=== PATIENT | female | born 2000 | race Caucasian/White ===

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

== ENCOUNTER 2021-04-11 23:05 | Emergency (ER) | payer BC ==
[~2021-04-11] VITALS: Ht 162.5 cm; Wt 73.0 kg
--- OUTSIDE RECORDS SUMMARY | 2021-04-11 23:13 | XMS REPORT | CCD ---
Author Author Melinda Balderas D.O. 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 Name Role Phone PP Unavailable CCM Unavailable Summary Purpose Interface Exchange Insurance Providers Payer name Policy type / Coverage type Covered green party ID Effective Begin Date Effective End Date Blue Cross Blue Shield Blue Cross/Blue Shield [id number] 2019 Unknown Family History Family History data not found Social History Social History Element Codes Description Effective Dates Marital status Unknown Single 11/29/2019 Employment Unknown [facility] 11/29/[address]: 358534071 Has never smoked or chewed tobacco 11/29/[address]: 674390 Currently drinks alcohol 11/28 Has the patient ever used illegal drugs? Unknown Has nev er used illegal drugs 11/29/2019 Allergies, Adverse Reactions, Alerts Substance Reaction Codes Entered Date Inactivated Date Status * NO KNOWN ENVIRONMENTAL ALLERGIES Unknown 11/29/2019 N o Inactive Date Active * NO KNOWN FOOD ALLERGIES Unknown 11/29/2019 No Inactiv e Date Active MACROLIDE ANTIBIOTICS reaction Unknown 11/29/2019 No Inactive Da te Active Problems Condition Codes Effective Dates Condition Status Cephalgia ICD-10: R51.9 ICD-9: 784.0 04/27/2020 Active Right ear pain ICD-10: H92.01 ICD-9: 388.70 02/11/2021 Active Vaccine counseling ICD-10: Z71.89 ICD-9: V65.49 11/20/2020 Active Depression ICD-10: F32.9 ICD-9: 311 11/29/2019 Active Generalized anxiety disorder ICD-10: F41.1 ICD-9: 300.02 07/02/2020 Active School physical exam ICD-10: Z02.0 ICD-9: V70.5 10/30/2020 Active Left foot pain ICD-10: M79.672 ICD-9: 729.5 09/03/2020 Active Migraine aura, persistent, intractable, with status mi grainosus ICD-10: G43.511 ICD-9: 346.53 07/02/2020 Active Sinusitis ICD-10: J32.9 ICD-9: 473.9 05/25/2020 Active Nausea ICD-10: R11.0 ICD-9: 787.02 05/01/2020 Active Right sided numbness ICD-10: R20.0 ICD-9: 782.0 05/01/2020 Active Right sided weakness ICD-10: R53.1 ICD-9: 728.87 05/01/2020 Active Endometriosis ICD-10: N80.9 ICD-9: 617.9 11/29/2019 Active Fatigue ICD-10: R53.83 ICD-9: 780.79 11/29/2019 Active PCOS (polycystic ovarian syndrome) ICD-10: E28.2 ICD-9: 256.4 11/29/2019 Active Medications Medication Codes Instructions Start Date Stop Date Status Fill Instructions oxybutynin chloride ER 10 mg tablet,extended release 24 hr R xNorm: 818504 1 Tablet(s) Oral QD 01/23/2021 02/21/2021 Active oxybutynin chloride ER 10 mg tablet,extended release 24 hr R xNorm: 012096 1 Tablet(s) Oral QD 01/23/2021 01/23/2021 Inactive citalopram 40 mg tablet RxNorm: 286237 1 Tablet(s) Oral QD repl aces 20mg dose 12/03/2020 03/02/2021 Active citalopram 40 mg tablet RxNorm: 302703 1 Tablet(s) Oral QD repl aces 20mg dose 12/03/2020 12/03/2020 Inactive Topamax 50 mg tablet RxNorm: 396582 1 Tablet(s) Oral two times a da y 10/30/2020 No Stop Date Active buspirone 10 mg tablet RxNorm: 012122 Take 1 Tablet(s) Oral two times a day as needed for anxiety 10/30/2020 01/27/2021 Inactive citalopram 20 mg tablet RxNorm: 294775 1 Tablet(s) Oral QD 09/11/1912/02/2020 Inactive propranolol 40 mg tablet RxNorm: 880209 1 Tablet(s) Oral two ti mes a day 07/16/2020 07/15/2020 Inactive propranolol 40 mg tablet RxNorm: 538230 1 Tablet(s) Oral two ti mes a day 07/16/2020 10/29/2020 Inactive Nurtec ODT 75 mg disintegrating tablet RxNorm: 7126416 1 Tablet(s) Sublingual QD as needed for headache take as directed but no more than 9 in a month. 07/02/2020 No Stop Date Active oxybutynin chloride 5 mg tablet RxNorm: 007702 1 Tablet(s) Oral QD 07/02/2020 01/22/2021 Inactive propranolol 40 mg tablet RxNorm: 294492 1 Tablet(s) Oral every night at bedtime 07/02/2020 07/15/2020 Inactive ProAir HFA 90 mcg/actuation aerosol inhaler RxNorm: 377639 2 Puff(s) Inhalation Q4H as needed 05/28/2020 05/27/2020 Inactive Medrol (Manuel) 4 mg tablets in a dose pack RxNorm: 319028 Tablet(s) Oral Take as prescribed 05/28/2020 05/27/2020 Inactive Zofran 4 mg tablet RxNorm: 810241 1 Tablet(s) Oral Q4H as neede d for nausea 05/28/2020 05/27/2020 Inactive Zofran 4 mg tablet RxNorm: 795243 1 Tablet(s) Oral Q4H as neede d for nausea 05/28/2020 05/28/2020 Inactive Medrol (Manuel) 4 mg tablets in a dose pack RxNorm: 375957 Tablet(s) Oral Take as prescribed 05/28/2020 05/28/2020 Inactive ProAir HFA 90 mcg/actuation aerosol inhaler RxNorm: 368043 2 Puff(s) Inhalation Q4H as needed 05/28/2020 05/28/2020 Inactive Augmentin 875 mg-125 mg tablet RxNorm: 789367 1 Tablet(s) Oral two times a day 05/25/2020 05/27/2020 Inactive citalopram 20 mg tablet RxNorm: 460168 Take 1 tablet by mouth o nce daily 05/22/2020 08/19/2020 Inactive diclofenac ER 100 mg tablet,extended release 24 hr RxNorm: 8 17751 1 Tablet(s) Oral two times a day as needed for headache 05/02/2020 05/01/2020 Inac tive diclofenac ER 100 mg tablet,extended release 24 hr RxNorm: 8 26886 1 Tablet(s) Oral two times a day as needed for headache 05/02/2020 05/02/2020 Inac tive prednisone 20 mg tablet RxNorm: 671563 1 Tablet(s) Oral two sherif es a day 05/01/2020 05/08/2020 Inactive Valtrex 1 gram tablet RxNorm: 728511 1 Tablet(s) Oral three sherif es a day 05/01/2020 05/08/2020 Inactive Lyrica 50 mg capsule RxNorm: 872616 1 Capsule(s) Oral QPM for n erve pain 04/27/2020 04/30/2020 Inactive Lyrica 50 mg capsule RxNorm: 057684 1 Capsule(s) Oral QPM for n erve pain 04/27/2020 04/26/2020 Inactive ketorolac 10 mg tablet RxNorm: 569358 1 Tablet(s) Oral four times a day as needed for pain with food 04/27/2020 04/30/2020 Inactive citalopram 20 mg tablet RxNorm: 012346 1 Tablet(s) Oral QD 03/12/2005/21/2020 Inactive Loryna (28) 3 mg-0.02 mg tablet RxNorm: 7043014 1 Tablet (s) Oral Take as directed 03/12/2020 04/30/2020 Inactive Loryna (28) 3 mg-0.02 mg tablet RxNorm: 3155181 1 Tablet (s) Oral Take as directed 01/09/2020 03/11/2020 Inactive Loryna (28) 3 mg-0.02 mg tablet RxNorm: 4182847 1 Tablet (s) Oral Take as directed 01/09/2020 01/08/2020 Inactive citalopram 20 mg tablet RxNorm: 523620 1 Tablet(s) Oral QD 11/29/19 20 03/11/2020 Inactive drospiren-e.estrad-l.mefol 3 mg-0.02 mg-0.451 mg(24)/0 .451 mg(4)tablet RxNorm: 9090838 1 Tablet(s) Oral QD 11/29/2019 04/30/2020 Inactive Medication Administered No Medication Administered data Immunizations No Immunization data Results No Results data Procedures Procedure Codes Date THER/PROPH/DIAG INJ SC/IM CPT-4: 16619 05/01/2020 KETOROLAC TROMETHAMINE INJ CPT-4: J1885 05/01/2020 THER/PROPH/DIAG INJ SC/IM CPT-4: 80179 05/01/2020 METHYLPREDNISOLONE INJECTION CPT-4: J2930 05/01/2020 ONDANSETRON HCL INJECTION CPT-4: J2405 05/01/2020 Vital Signs Date Vital 02/11/2021 Heart Rate 1: 84 bpm Respiratory Rate: 18 bpm SpO2: 99 % Temperature: 36.6 (C) / 97.8 (F) 11/20/2020 Blood Pressure 1: 117/68 Code: 8480-6 Heart Rate 1: 68 bpm Respiratory Rate: 16 bpm SpO2: 99% Temperature: 36.6 (C) / 97.8 (F) We ight: 161 lbs Code: 08993-1 10/30/2020 Blood Pressure 1: 124/74 Code: 8480-6 BMI: 27.6 Code: 79965-4 Heart Rate 1: 92 bpm Height: 5'4" Code: 8302-2 Respiratory Rate: 16 bpm SpO2: 99% Temperature: 36.4 (C) / 97.5 (F) Weight: 161 lbs Code: 59882-8 09/03/2020 Blood Pressure 1: 124/64 Code: 8480-6 BMI: 28.2 Code: 74109-8 Heart Rate 1: 92 bpm Height: 5'4" Code: 8302-2 Respiratory Rate: 22 bpm SpO2: 96% Temperature: 36.7 (C) / 98.0 (F) Weight: 164 lbs Code: 33887-9 07/24/2020 Blood Pressure 1: 132/76 Code: 8480-6 BMI: 28.7 Code: 76244-9 Heart Rate 1: 90 bpm Height: 5'4" Code: 8302-2 Respiratory Rate: 16 bpm SpO2: 99% Temperature: 36.5 (C) / 97.7 (F) Weight: 167 lbs Code: 99077-3 07/02/2020 Blood Pressure 1: 127/76 Code: 8480-6 Heart Rate 1: 98 bpm Respiratory Rate: 15 bpm SpO2: 98% Temperature: 36.3 (C) / 97.3 (F) We ight: 167 lbs Code: 78253-5 05/25/2020 Blood Pressure 1: 118/76 Code: 8480-6 BMI: 29.2 Code: 97233-0 Heart Rate 1: 92 bpm Height: 5'4" Code: 8302-2 Respiratory Rate: 20 bpm SpO2: 96% Temperature: 36.2 (C) / 97.1 (F) Weight: 170 lbs Code: 10315-8 05/01/2020 Blood Pressure 1: 114/86 Code: 8480-6 Heart Rate 1: 104 bpm Respiratory Rate: 22 bpm SpO2: 99% Temperature: 36.9 (C) / 98.4 (F) 04/27/2020 Blood Pressure 1: 119/64 Code: 8480-6 Heart Rate 1: 95 bpm Respiratory Rate: 16 bpm SpO2: 98% Temperature: 36.4 (C) / 97.5 (F) We ight: 165 lbs Code: 39006-3 11/29/2019 Blood Pressure 1: 104/76 Code: 8480-6 BMI: 26.8 Code: 61650-7 Heart Rate 1: 80 bpm Height: 5'4" Code: 8302-2 Respiratory Rate: 20 bpm SpO2: 98% Temperature: 36.4 (C) / 97.5 (F) Weight: 156 lbs Code: 52309-4 Functional Status No Functional Status data Reason For Visit Reason For Visit Effective Dates Notes otalgia 02/11/2021 ~generic 11/20/2020 Patient is here to d renetta Covid19 Vaccination and possible side effects. 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 foot pain 09/03/2020 Patient presents to clinic with left-foot pain that has been ongoing for 2 weeks. Patient states pain is described as throbbing with pressure, radiating with shooting pain up lateral side of leg to knee. Patient states pain is moderately severe (6 out of 10 on pain scale). Patient has been taking ibuprophen q6h, ice, compression and rest with little relief. Patient also reports slight swelling to last two digits intermittently on same foot. follow up 07/24/2020 Patient has been naida ing propranolol 40mg QD. Patient was prescribed to take 40mg BID but states that she did not read the bottle instructions. Patient has c/o of fatigue, dizziness, imbalance, disturbed emotions since starting propranolol, but states it has helped her anxiety and headaches some. Appt with neurology scheduled on Thursday. headache 07/02/2020 otalgia 05/25/2020 patient currently on mucinex follow up 05/01/2020 ER fwup headache 04/27/2020 ~generic 11/29/2019 New Patient---establ ishing visit Encounters Encounter Performer Location Codes Date ([id number]) OFFICE/OUTPATIENT VISIT EST Diagnosis: Cephalgia[ICD10: R51.9] Diagnosis: Right ear pain[ICD10: H92.01] Perla WALKER [employer] CPT-4: 59092 02/11/2021 ([id number]) OFFICE/OUTPATIENT VISIT EST Diagnosis: Vaccine counseling[ICD10: Z71.89] Perla Berkowitz [employer] CPT-4: 88116 11/20/2020 ([id number]) OFFICE/OUTPATIENT VISIT EST Diagnosis: Generalized anxiety disorder[ICD10: F41.1] Diagnosis: Depression[ICD10: F32.9] Diagnosis: School physical exam[ICD10: Z02.0] Perla HEAD [employer] CPT-4: 13872 10/30/2020 ([id number]) OFFICE/OUTPATIENT VISIT EST Diagnosis: Left foot pain[ICD10: M79.672] Perla WALKER [employer] CPT-4: 93395 09/03/2020 ([id number]) OFFICE/OUTPATIENT VISIT EST Diagnosis: Cephalgia[ICD10: R51.9] Diagnosis: Generalized anxiety disorder[ICD10: F41.1] Perla WALKER [employer] CPT-4: 53671 07/24/2020 ([id number]) OFFICE/OUTPATIENT VISIT EST Diagnosis: Migraine aura, persistent, intractable, with status migrainosus[ICD10: G43.511] Diagnosis: Generalized anxiety disorder[ICD10: F41.1] Anusha BALDERAS DO [employer] CPT-4: 66076 07/02/2020 ([id number]) OFFICE/OUTPATIENT VISIT EST Diagnosis: Sinusitis[ICD10: J32.9] Anusha DEL CASTILLO DO [facility] CPT-4: 81307 05/25/2020 ([id number]) OFFICE/OUTPATIENT VISIT EST Diagnosis: Cephalgia[ICD10: R51.9] Diagnosis: Right sided numbness[ICD10: R20.0] Diagnosis: Nausea[ICD10: R11.0] Diagnosis: Right sided weakness[ICD10: R53.1] Aaron LUJAN SONIDO BALDERAS [employer] CPT-4: 50802 05/01/2020 ([id number]) OFFICE/OUTPATIENT VISIT EST Diagnosis: Cephalgia[ICD10: R51.9] Anusha DEL CASTILLO [employer] CPT-4: 91945 04/27/2020 ([id number]) OFFICE/OUTPATIENT VISIT NEW Diagnosis: Endometriosis[ICD10: N80.9] Diagnosis: PCOS (polycystic ovarian syndrome)[ICD10: E28.2] Diagnosis: Depression[ICD10: F32.9] Diagnosis: Fatigue[ICD10: R53.83] Aaron WALKER [employer] SHIRA Ojeda [employer] CPT-4: 64223 11/29/2019 Plan of Care Planned Activity Notes Codes Status Date Visit Diagnosis Plan: Cephalgia Discussion: Taking top irimate and nurtec PRN. Does not take ibuprofen /NSAIDs because she was told not to in the past- advised she can now d/t normal neuro imaging and stroke being ruled out. Patient taking JAQUELIN pills-advised against taking d/t vascular migraines- discussed risks. Dr. Balderas and myself have both instructed her to discontinue in the past. 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 Patient states she will call and check with her neurologist. ICD-9 : 784.0 ICD-10 : R51.9 02/11/2021 Visit Diagnosis Plan: Right ear pain Discussion: TM an d external ear canal normal- no s/s of infection, lesions, edema, drainage. External ear became very erythematous and painful with burning sensation radiating to cheek and mandible after otoscopic exam. Erythema and warmth extended to adjacent portions of ipsilateral cheek. Discussed possibility of Red Ear Syndrome due to clinical presentation and migraines- can use cold compress to ear/face, migraine preventative measures, can send indomethacin if needed. Patient will discuss symptoms with her neurologist. F/U for concerns. ICD-9 : 388.70 ICD-10 : H92.01 02/11/2021 Appointment: Perla Bowers WPtel: [phone] ACUTE ILLNESS 02/11/2021 Patient Education: Patient Medication Summary Completed 02/11/2021 Visit Diagnosis Plan: Vaccine counseling Discussion: D iscussed contraindications, side effects, patient concerns on COVID vaccine- patient does not have any contraindications. Recommended COVID vaccine. Questions answered. Patient and mother voiced understanding. Print-outs given from [facility] website on MRNA vaccines and covid vaccine safety and side effects. ICD-9 : V65.49 ICD-10 : Z71.89 11/20/2020 Appointment: Perla Bowers WPtel: [phone] ACUTE ILLNESS 11/20/2020 Patient Education: Patient Medication Summary Completed 11/20/2020 Visit Diagnosis Plan: Generalized anxiety disorder Dis cussion: Continue citalopram. Add buspar. F/U for any concerns- no improvement/worsening. 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 ICD-9 : V70.5 ICD-10 : Z02.0 10/30/2020 Appointment: Perla Bowers WPtel: [phone] [id number] FOLLOW UP 10/30/2020 Patient Education: Patient Medication Summary Completed 10/30/2020 Patient Education: buspirone- [employer] Coupon [id number] [email or web address] Completed 10/30/2020 Visit Diagnosis Plan: Left foot pain Discussion: 1.)Re commend Xray to left foot to rule out break/fracture to affected extremity. 2.)RICE (Rest, Ice, Compression, Elevate) 3.)Recommend ibuprofen 600mg Q6-8H prn for pain, arch supporting shoes with inserts and limit work/activities for the next week until xray results received and pain has improved. 4.)RTC for worsening pain or further concerns. ICD-9 : 729.5 ICD-10 : M79.672 09/03/2020 Appointment: Perla Bowers WPtel: [phone] [facility] ACUTE ILLNESS 09/03/2020 Patient Education: Patient Medication Summary Completed 09/03/2020 Care Plan: X-RAY EXAM OF FOOT LOINC : 26 095-0 Pending 09/03/2020 Appointment: Aaron Balderas WPtel: [phone] [facility] RESCHEDULED 07/30/2020 Visit Diagnosis Plan: Cephalgia Recommendations: Gisell bailey will take Propanolol 20 mg in am and 20 mg in HS instead of 40 mg daily to help reduce symptoms of dizziness. She is scheduled to see Dr. Iqbal, neurologist on Thursday. Advised nolvia hinojosa not to take COCs with migraine with aura. She is unsure if she has an aura or not, aura explained. [facility] been [facility] for [facility]. Will f/u after appt with neurology. ICD-9 : 784.0 ICD-10 : R51.9 07/24/2020 Appointment: Perla Bowers WPtel: [phone] [facility] FOLLOW UP 07/24/2020 Patient Education: Patient Medication Summary Completed 07/24/2020 Appointment: Anusha Chapin [address] [place], [place] [id number] RESCHEDULED 07/16/2020 Visit Diagnosis Plan: Migraine aura, per sistent, intractable, with status migrainosus Discussion: has stopped her contro l with no relief of symptoms. patient has had cta and mri, steroid injections, valtrex, toradol all with no relief. patient is having daily, constant headaches with no relief from otc medications. propranolol prescribed to take as directed each night to prevent headaches. sample of nurtec given to patient with instructions on use. call office if symptoms improve and will send out full rx. call dr. vizcarra to reschedule appt. continue with chiropractor as needed but schedule massage as well to see if helps with tension related. call office in 2 weeks with update and may increase propranolol at that time. ICD-9 : 346.53 ICD-10 : G43.511 07/02/2020 Visit Diagnosis Plan: Generalized anxiety disorder Dis cussion: propranolol to take to help with migraines and anxiety. ICD-9 : 300.02 ICD-10 : F41.1 07/02/2020 Appointment: Anusha Chapin [address] [place] [address] ACUTE ILLNESS 07/02/2020 Patient Education: propranolol- [employer] Coupon [id number] [email or web address]/resources/getResource/[email or web address] Completed 07/02/2020 Visit Diagnosis Plan: Sinusitis Discussion: stop the m ucinex but continue with otc allergy meds. augmentin to cover for bacterial sinus infection but instructed patient to get tested for COVID. instructed her to contact [facility] for testing. patient verbalized understanding. ICD-9 : 473.9 ICD-10 : J32.9 05/25/2020 Appointment: Anusha Chapin [address] [place], [place] [id number] ACUTE ILLNESS 05/25/2020 Visit Diagnosis Plan: Right sided numbness Discussion: Referral to neurology Solumedrol today and then continue with prednisone Call tomorrow on how doing ICD-9 : 782.0 ICD-10 : R20.0 05/01/2020 Visit Diagnosis Plan: Nausea Discussion: Zofran given ICD-9 : 787.02 ICD-10 : R11.0 05/01/2020 Visit Diagnosis Plan: Right sided weakness Discussion: Normal CT of brain and MRI of brain as well as normal lab ICD-9 : 728.87 ICD-10 : R53.1 05/01/2020 Visit Diagnosis Plan: Cephalgia Discussion: Could be n eurological migraine so will do toradol with zofran now DC oral contraceptive Optometry exam for dilated exam tomorrow Resume Valtrex due to recent shingles to left side of neck ICD-9 : 784.0 ICD-10 : R51.9 05/01/2020 Appointment: Aaron Balderas WPtel: [phone] [facility] [place] [address] Follow Up 05/01/2020 Patient Education: prednisone- [employer] Coupon [phone] [email or web address]/resources/getResource/61/[email or web address] Completed 05/01/2020 Patient Education: Valtrex- [employer] Coupon [id number] https://www.[email or web address]/resources/getResource/61/[email or web address] Completed 05/01/2020 Care Plan: Referral Order SNOMED-CT : [id number] Pending 05/01/2020 Visit Diagnosis Plan: Cephalgia Discussion: Patient se nt for stat CTA of brain--I notified her that results were normal and sent out lyrica 50mg po q PM and ketorolac 10mg po QID prn for the weekend She will call us Thursday to let us know how she is doing but is instructed to go to the ER this weekend if worsening symptoms including fever, AMS, etc. ICD-9 : 784.0 ICD-10 : R51.9 04/27/2020 Appointment: Anusha Chapin [address] [place], [place] [id number] ACUTE ILLNESS 04/27/2020 Patient Education: ketorolac- [employer] Coupon [phone] [email or web address]/resources/getResource/[email or web address] Completed 04/27/2020 Visit Diagnosis Plan: Depression Discussion: Stable on citalopram Follow Up: 6 months ICD-9 : 311 ICD-10 : F32.9 11/29/2019 Visit Diagnosis Plan: Fatigue Discussion: Check CBC, T SH, Free T4, CMP, iron/ferritin, insulin levels ICD-9 : 780.79 ICD-10 : R53.83 11/29/2019 Visit Diagnosis Plan: Endometriosis Discussion: Follow s with OLIVE PICKER ICD-9 : 617.9 ICD-10 : N80.9 11/29/2019 Appointment: Aaron Balderas WPtel: [facility] NEW PATIENT 11/29/2019 Referral: Jerman Vizcarra WPtel: [facility] [address] [place] [address] Referral Appointment Requested Instructions No Instructions Medical Equipment No Medical Equipment data Health Concerns Section Health Concerns data not found Goals Section Goals data not found Interventions Section Interventions data not found Health Status Evaluations/Outcomes Section Health Status Evaluations/Outcomes data not found Advance Directives No Advance Directive data
--- OUTSIDE RECORDS SUMMARY | 2021-04-11 23:13 | XMS REPORT | CCD ---
Author Author Melinda Balderas D.O. 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 11/29/[address]: 718567059 Has never smoked or chewed tobacco 11/29/[address]: 151600 Currently drinks alcohol 11/28 Has the patient [...] Problems Condition Codes Effective Dates Condition Status Acute cystitis with hematuria ICD-10: N30.01 ICD-9: 595.0 03/06/2021 Active Nasal congestion ICD-10: R09.81 ICD-9: 478.19 03/06/2021 Active Cephalgia ICD-10: R51.9 ICD-9: 784.0 04/27/2020 Active [...] Start Date Stop Date Status Fill Instructions Macrobid 100 mg capsule RxNorm: 655326 Take 1 Capsule(s) Oral Q 12H with food 03/06/2021 03/10/2021 Active Topamax 100 mg tablet RxNorm: 732916 1 Tablet(s) Oral two times a day 03/06/2021 04/04/2021 Active Pyridium 200 mg tablet RxNorm: 8940586 Take 1 Tablet(s) Oral three times a day after mealsas needed 03/06/2021 03/07/2021 Active citalopram 40 mg tablet RxNorm: 761559 1 Tablet(s) Oral QD repl aces 20mg dose 03/01/2021 05/29/2021 Active Topamax 50 mg tablet RxNorm: 488646 1 Tablet(s) Oral two times a da y 03/01/2021 03/01/2021 Inactive oxybutynin chloride ER 10 mg tablet,extended release 24 hr R xNorm: 728197 Take 1 Tablet(s) Oral QD 02/20/2021 05/20/2021 Active norethindrone (contraceptive) 0.35 mg tablet RxNorm: 364117 1 T ablet(s) Oral QD 02/14/2021 01/15/2022 Active oxybutynin chloride ER 10 mg tablet,extended release 24 hr R xNorm: 669256 1 Tablet(s) Oral QD 01/23/2021 01/23/2021 Inactive oxybutynin chloride ER 10 mg tablet,extended release 24 hr R xNorm: 518956 1 Tablet(s) Oral QD 01/23/2021 01/23/2021 Inactive citalopram 40 mg tablet RxNorm: 905159 1 Tablet(s) Oral QD repl aces 20mg dose 12/03/2020 12/03/2020 Inactive citalopram 40 mg tablet RxNorm: 710065 1 Tablet(s) Oral QD repl aces 20mg dose 12/03/2020 12/03/2020 Inactive Topamax 50 mg tablet RxNorm: 305645 1 Tablet(s) Oral two times a da y 10/30/2020 03/01/2021 Inactive buspirone 10 mg tablet RxNorm: 458679 Take 1 Tablet(s) Oral two times a day as needed for anxiety 10/30/2020 01/27/2021 Inactive citalopram 20 mg tablet RxNorm: 268814 1 Tablet(s) Oral QD 09/11/1912/02/2020 Inactive propranolol 40 mg tablet RxNorm: 529758 1 Tablet(s) Oral two ti mes a day 07/16/2020 07/15/2020 Inactive propranolol 40 mg tablet RxNorm: 077531 1 Tablet(s) Oral two ti mes a day 07/16/2020 10/29/2020 Inactive oxybutynin chloride 5 mg tablet RxNorm: 818189 1 Tablet(s) Oral QD 07/02/2020 01/22/2021 Inactive Nurtec ODT 75 mg disintegrating tablet RxNorm: 4624491 1 Tablet(s) Sublingual QD as needed for headache take as directed but no more than 9 in a month. 07/02/2020 03/05/2021 Inactive propranolol 40 mg tablet RxNorm: 520900 1 Tablet(s) Oral every night at bedtime 07/02/2020 07/15/2020 Inactive ProAir HFA 90 mcg/actuation aerosol inhaler RxNorm: 522018 2 Puff(s) Inhalation Q4H as needed 05/28/2020 05/27/2020 Inactive Medrol (Manuel) 4 mg tablets in a dose pack RxNorm: 786881 Tablet(s) Oral Take as prescribed 05/28/2020 05/27/2020 Inactive Zofran 4 mg tablet RxNorm: 288257 1 Tablet(s) Oral Q4H as neede d for nausea 05/28/2020 05/27/2020 Inactive Zofran 4 mg tablet RxNorm: 075668 1 Tablet(s) Oral Q4H as neede d for nausea 05/28/2020 05/28/2020 Inactive Medrol (Manuel) 4 mg tablets in a dose pack RxNorm: 848170 Tablet(s) Oral Take as prescribed 05/28/2020 05/28/2020 Inactive ProAir HFA 90 mcg/actuation aerosol inhaler RxNorm: 388829 2 Puff(s) Inhalation Q4H as needed 05/28/2020 05/28/2020 Inactive Augmentin 875 mg-125 mg tablet RxNorm: 070478 1 Tablet(s) Oral two times a day 05/25/2020 05/27/2020 Inactive citalopram 20 mg tablet RxNorm: 147253 Take 1 tablet by mouth o nce daily 05/22/2020 08/19/2020 Inactive diclofenac ER 100 mg tablet,extended release 24 hr RxNorm: 8 16516 1 Tablet(s) Oral two times a day as needed for headache 05/02/2020 05/01/2020 Inac tive diclofenac ER 100 mg tablet,extended release 24 hr RxNorm: 8 49292 1 Tablet(s) Oral two times a day as needed for headache 05/02/2020 05/02/2020 Inac tive prednisone 20 mg tablet RxNorm: 674127 1 Tablet(s) Oral two sherif es a day 05/01/2020 05/08/2020 Inactive Valtrex 1 gram tablet RxNorm: 673210 1 Tablet(s) Oral three sherif es a day 05/01/2020 05/08/2020 Inactive Lyrica 50 mg capsule RxNorm: 848618 1 Capsule(s) Oral QPM for n erve pain 04/27/2020 04/30/2020 Inactive Lyrica 50 mg capsule RxNorm: 923415 1 Capsule(s) Oral QPM for n erve pain 04/27/2020 04/26/2020 Inactive ketorolac 10 mg tablet RxNorm: 230695 1 Tablet(s) Oral four times a day as needed for pain with food 04/27/2020 04/30/2020 Inactive citalopram 20 mg tablet RxNorm: 196295 1 Tablet(s) Oral QD 03/12/20 20 05/21/2020 Inactive Loryna (28) 3 mg-0.02 mg tablet RxNorm: 5657999 1 Tablet (s) Oral Take as directed 03/12/2020 04/30/2020 Inactive Loryna (28) 3 mg-0.02 mg tablet RxNorm: 8540094 1 Tablet (s) Oral Take as directed 01/09/2020 03/11/2020 Inactive Loryna (28) 3 mg-0.02 mg tablet RxNorm: 8021563 1 Tablet (s) Oral Take as directed 01/09/2020 01/08/2020 Inactive citalopram 20 mg tablet RxNorm: 870553 1 Tablet(s) Oral QD 11/29/1903/11/2020 Inactive drospiren-e.estrad-l.mefol 3 mg-0.02 mg-0.451 mg(24)/0 .451 mg(4)tablet RxNorm: 0279501 1 Tablet(s) Oral QD 11/29/2019 04/30/2020 Inactive norethindrone (contraceptive) oral RxNorm: 7514 oral 02/14/2021 02/14/2021 Inactive Medication Administered No Medication Administered data Immunizations No Immunization data Results No Results data Procedures Procedure Codes Date URINALYSIS NONAUTO W/O SCOPE CPT-4: 16117 03/06/2021 URINE CULTURE/ COLONY COUNT CPT-4: 52481 03/06/2021 SARSCOV & INF VIR A&B AG IA CPT-4: 75120 03/06/2021 THER/PROPH/DIAG INJ SC/IM CPT-4: 18939 05/01/2020 KETOROLAC TROMETHAMINE INJ CPT-4: J1885 05/01/2020 THER/PROPH/DIAG INJ SC/IM CPT-4: 63837 05/01/2020 METHYLPREDNISOLONE INJECTION CPT-4: J2930 05/01/2020 ONDANSETRON HCL INJECTION CPT-4: J2405 05/01/2020 Vital Signs Date Vital 03/06/2021 Blood Pressure 1: 119/68 Code: 8480-6 Heart Rate 1: 97 bpm Respiratory Rate: 16 bpm SpO2: 98% Temperature: 36.4 (C) / 97.5 (F) We ight: 158 lbs Code: 05778-7 02/11/2021 Heart Rate 1: 84 bpm Respiratory Rate: 18 bpm SpO2: 99 % Temperature: 36.6 (C) / 97.8 (F) 11/20/2020 Blood Pressure 1: 117/68 Code: 8480-6 Heart Rate 1: 68 bpm Respiratory Rate: 16 bpm SpO2: 99% Temperature: 36.6 (C) / 97.8 (F) We ight: 161 lbs Code: 00503-3 10/30/2020 Blood Pressure 1: 124/74 Code: 8480-6 BMI: 27.6 Code: 54492-2 Heart Rate 1: 92 bpm Height: 5'4" Code: 8302-2 Respiratory Rate: 16 bpm SpO2: 99% Temperature: 36.4 (C) / 97.5 (F) Weight: 161 lbs Code: 32851-7 09/03/2020 Blood Pressure 1: 124/64 Code: 8480-6 BMI: 28.2 Code: 34471-1 Heart Rate 1: 92 bpm Height: 5'4" Code: 8302-2 Respiratory Rate: 22 bpm SpO2: 96% Temperature: 36.7 (C) / 98.0 (F) Weight: 164 lbs Code: 66297-5 07/24/2020 Blood Pressure 1: 132/76 Code: 8480-6 BMI: 28.7 Code: 06578-6 Heart Rate 1: 90 bpm Height: 5'4" Code: 8302-2 Respiratory Rate: 16 bpm SpO2: 99% Temperature: 36.5 (C) / 97.7 (F) Weight: 167 lbs Code: 01403-9 07/02/2020 Blood Pressure 1: 127/76 Code: 8480-6 Heart Rate 1: 98 bpm Respiratory Rate: 15 bpm SpO2: 98% Temperature: 36.3 (C) / 97.3 (F) We ight: 167 lbs Code: 08933-8 05/25/2020 Blood Pressure 1: 118/76 Code: 8480-6 BMI: 29.2 Code: 50059-8 Heart Rate 1: 92 bpm Height: 5'4" Code: 8302-2 Respiratory Rate: 20 bpm SpO2: 96% Temperature: 36.2 (C) / 97.1 (F) Weight: 170 lbs Code: 22708-7 05/01/2020 Blood Pressure 1: 114/86 Code: 8480-6 Heart Rate 1: 104 bpm Respiratory Rate: 22 bpm SpO2: 99% Temperature: 36.9 (C) / 98.4 (F) 04/27/2020 Blood Pressure 1: 119/64 Code: 8480-6 Heart Rate 1: 95 bpm Respiratory Rate: 16 bpm SpO2: 98% Temperature: 36.4 (C) / 97.5 (F) We ight: 165 lbs Code: 11070-0 11/29/2019 Blood Pressure 1: 104/76 Code: 8480-6 BMI: 26.8 Code: 20612-5 Heart Rate 1: 80 bpm Height: 5'4" Code: 8302-2 Respiratory Rate: 20 bpm SpO2: 98% Temperature: 36.4 (C) / 97.5 (F) Weight: 156 lbs Code: 43570-6 Functional Status No Functional Status data Reason For Visit Reason For Visit Effective Dates Notes painful urination 03/06/2021 otalgia 02/11/2021 ~generic 11/20/2020 Patient is here [...] visit Encounters Encounter Performer Location Codes Date ([id number]) OFFICE/OUTPATIENT VISIT EST Diagnosis: Acute cystitis with hematuria[ICD10: N30.01] Diagnosis: Nasal congestion[ICD10: R09.81] Perla KURTZAnybodyOutThere CPT-4: 80948 03/06/2021 ([id number]) OFFICE/OUTPATIENT VISIT EST Diagnosis: Cephalgia[ICD10: R51.9] Diagnosis: Right ear pain[ICD10: H92.01] Perla Kirby LaunchGramSUKHDEVAnybodyOutThere CPT-4: 52237 02/11/2021 ([id number]) OFFICE/OUTPATIENT VISIT EST Diagnosis: Vaccine counseling[ICD10: Z71.89] Perla BALDERAS Mamaherb CPT-4: 46043 11/20/2020 ([id number]) OFFICE/OUTPATIENT VISIT EST Diagnosis: Generalized anxiety disorder[ICD10: F41.1] Diagnosis: Depression[ICD10: F32.9] Diagnosis: School physical exam[ICD10: Z02.0] Perla KURTZAnybodyOutThere CPT-4: 74511 10/30/2020 ([id number]) OFFICE/OUTPATIENT VISIT EST Diagnosis: Left foot pain[ICD10: M79.672] Perla BALDERAS Mamaherb CPT-4: 06130 09/03/2020 ([id number]) OFFICE/OUTPATIENT VISIT EST Diagnosis: Cephalgia[ICD10: R51.9] Diagnosis: Generalized anxiety disorder[ICD10: F41.1] Perla MENDESLINE ChristianIsreal ROBBY Mama[facility]b CPT-4: 57869 07/24/2020 ([id number]) OFFICE/OUTPATIENT VISIT EST Diagnosis: Migraine aura, persistent, intractable, with status migrainosus[ICD10: G43.511] Diagnosis: Generalized anxiety disorder[ICD10: F41.1] Anusha MENDESLINE ChristianIsreal ROBBY [employer] CPT-4: 62053 07/02/2020 ([id number]) OFFICE/OUTPATIENT VISIT EST Diagnosis: Sinusitis[ICD10: J32.9] Anusha MENDESLINE ChristianIsreal TESSIE DEL CASTILLO Mama[facility]b CPT-4: 38757 05/25/2020 ([id number]) OFFICE/OUTPATIENT VISIT EST Diagnosis: Cephalgia[ICD10: R51.9] Diagnosis: Right sided numbness[ICD10: R20.0] Diagnosis: Nausea[ICD10: R11.0] Diagnosis: Right sided weakness[ICD10: R53.1] Bruna HEAD ChristianIsreal ROBBY Mama[facility]b CPT-4: 64180 05/01/2020 ([id number]) OFFICE/OUTPATIENT VISIT EST Diagnosis: Cephalgia[ICD10: R51.9] Anusha MENDESLINE ChristianIsreal TESSIE DEL CASTILLO Mama[facility]b CPT-4: 51437 04/27/2020 ([id number]) OFFICE/OUTPATIENT VISIT NEW Diagnosis: Endometriosis[ICD10: N80.9] Diagnosis: PCOS (polycystic ovarian syndrome)[ICD10: E28.2] Diagnosis: Depression[ICD10: F32.9] Diagnosis: Fatigue[ICD10: R53.83] Bruna WALKER ChristianIsreal JAMEELYESENIA R Mamaherb CPT-4: 18093 11/29/2019 Plan of Care Planned Activity Notes Codes Status Date Visit Plan: Supportive care. Rest, Fluid s, Tylenol/Motrin prn fever or bodyaches. Notify if worsening symptoms. 03/06/2021 Visit Diagnosis Plan: Acute cystitis with hematuria Di scussion: 1.) Rec Macrobid BID x5days. Urine culture sent out. 2.)If needed, take otc Azox3 days to numb bladder/urethra 3.)Push fluids to flush bacteria from bladder. 4.)Will await culture results. Rtc if worsening or further concerns. ICD-9 : 595.0 ICD-10 : N30.01 03/06/2021 Visit Diagnosis Plan: Nasal congestion Discussion: 1.) Covid & influenza tests negative. 2.)Due to high exposure at school, most likely viral etiology. 3.)Rec supportive care, rest, fluids, tylenol/ibuprofen, throat lozenges and warm salt gargles. 4.)Return to clinic if no improvement, worsening, or for any concerns. ICD-9 : 478.19 ICD-10 : R09.81 03/06/2021 Patient Education: Patient Medication Summary Completed 03/06/2021 Visit Diagnosis Plan: Cephalgia Discussion: Taking top [...] discontinue in the past. 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 Patient states she [...] 02/11/2021 [facility]ment[facility] [phone] [facility] [facility] 02/11/2021 Patient Education: Patient Medication Summary Completed 02/11/2021 Visit Diagnosis Plan: Vaccine counseling Discussion: D iscussed contraindications, side effects, patient concerns on COVID vaccine- patient does not have any contraindications. Recommended COVID vaccine. Questions answered. Patient and mother voiced understanding. Print-outs given from [facility] website on MRNA vaccines and covid vaccine safety and side effects. ICD-9 : V65.49 ICD-10 : Z71.89 11/20/2020 Appointment: Perla Bowers WPtel: [phone] [facility] ACUTE ILLNESS 11/20/2020 Patient Education: Patient Medication [...] 10/30/2020 Appointment: Perla Bowers WPtel: [phone] [facility] FOLLOW UP 10/30/2020 Patient Education: Patient Medication Summary Completed 10/30/2020 Patient Education: buspirone- OptimizeRX Coupon [phone] https://www.[employer].OYO Sportstoys/samplemd/resources/getResource/61/[email or web address]-[email or web address]-[email or web address] Completed 10/30/2020 Visit Diagnosis Plan: Left foot [...] 09/03/2020 Appointment: Perla Bowers WPtel: [phone] [facility] ACUTE ILLNESS 09/03/2020 Patient Education: Patient Medication Summary Completed 09/03/2020 Care Plan: X-RAY EXAM OF FOOT LOINC : 26 095-0 Pending 09/03/2020 Appointment: Bruna Balderas ChristianIsreal WPtel[facility] [phone] [id number] US RESCHEDULED 07/30/2020 Visit Diagnosis Plan: Cephalgia Recommendations: Gisell bailey will take Propanolol 20 mg in am and 20 mg in HS instead of 40 mg daily to help reduce symptoms of dizziness. She is scheduled to see Dr. Iqbal, neurologist on Thursday. Advised nolvia katherinleo not to take COCs with migraine with aura. She is unsure if she has an aura or not, aura explained. Questions answered. Nurtec sample given since it has been working well for her. Will f/u after appt with neurology. ICD-9 : 784.0 ICD-10 : R51.9 07/24/2020 Appointment: Perla Bowers WPtel: [phone] [facility] FOLLOW UP 07/24/2020 Patient Education: Patient Medication Summary Completed 07/24/2020 Appointment: Anusha Chapin [address] RESCHEDULED 07/16/2020 Visit Diagnosis Plan: Migraine aura, per carleen, intractable, with status migrainosus Discussion: has stopped [...] ICD-10 : F41.1 07/02/2020 Appointment: Anusha Chapin [address] [place], [place] [id number] ACUTE ILLNESS 07/02/2020 Patient Education: propranolol- OptimizeRX Coupon [phone] https://www.[email or web address]/sampleYeelink/resources/getResource/61/[email or web address]-[email or web address]-[email or web address] Completed 07/02/2020 Visit Diagnosis Plan: Sinusitis Discussion: stop the m ucinex but continue with otc allergy meds. augmentin to cover for bacterial sinus infection but instructed patient to get tested for COVID. instructed her to contact [facility] for testing. patient verbalized understanding. ICD-9 : 473.9 ICD-10 : J32.9 05/25/2020 Appointment: Anusha Chapin [address] [place], [place] [address] ACUTE ILLNESS 05/25/2020 Visit Diagnosis Plan: Right [...] : 784.0 ICD-10 : R51.9 05/01/2020 Appointment: Bruna Balderas [facility]Ptel[facility] [phone] [facility] [facility] Up 05/01/2020 Patient Education: prednisone- OptimizeRX Coupon [phone] https://www.[email or web address]/sampleYeelink/resources/getResource/61/[email or web address]-[email or web address] Completed 05/01/2020 Patient Education: Valtrex- OptimizeRX Coupon [id number] [id number] https://www.[employer]/resources/getResource/61/[email or web address]-[email or web address] Completed 05/01/2020 Care Plan: Referral Order SNOMED-CT : 30 [id number] Pending 05/01/2020 Visit Diagnosis Plan: Cephalgia Discussion: [...] ICD-10 : R51.9 04/27/2020 Appointment: Anusha Chapin [address] [place] [address] ACUTE ILLNESS 04/27/2020 Patient Education: ketorolac- OptimizeRX Coupon [phone] https://www.[employer]/resources/getResource/61/73000961-[email or web address]-uk Completed 04/27/2020 Visit Diagnosis Plan: Depression Discussion: Stable on citalopram Follow Up: 6 months ICD-9 : 311 ICD-10 : F32.9 11/29/2019 Visit Diagnosis Plan: Fatigue Discussion: Check CBC, T SH, Free T4, CMP, iron/ferritin, insulin levels ICD-9 : 780.79 ICD-10 : R53.83 11/29/2019 Visit Diagnosis Plan: Endometriosis Discussion: Follow s with [employer] [facility] ICD-9 : 617.9 ICD-10 : N80.9 11/29/2019 Appointment: Bruna Balderas WPtel: [phone] NEW PATIENT 11/29/2019 [facility] [address] [place], [place] [id number] Referral Appointment Requested Instructions Comment . Supportive care. Rest, Fluids, Tyleno l/Motrin prn fever or bodyaches. Notify if worsening symptoms. Medical Equipment No Medical Equipment data Health Concerns Section Health Concerns data not found Goals Section Goals data not found Interventions Section Interventions data not found Health Status Evaluations/Outcomes Section Health Status Evaluations/Outcomes data not found Advance Directives No Advance Directive data
--- OUTSIDE RECORDS SUMMARY | 2021-04-11 23:13 | XMS REPORT | CCD ---
Author Author Melinda Balderas D.O. [facility] Organization AARON BALDERAS DO [facility] Address [address] [place] [address] Phone Care Team Providers Care Field Aide Name Role Phone PP Unavailable CCM Unavailable Summary Purpose Interface Exchange Insurance Providers Payer name Policy type / Coverage type Covered alliance party ID Effective Begin Date Effective End Date Blue Cross Blue Shield Blue Cross/Blue Shield [id number] 2019 Unknown Family History Family History data not found Social History Social History Element Codes Description Effective Dates Marital status Unknown Single 11/29/2019 Employment Unknown [facility] 11/29/[address]: 365671601 Has never smoked or chewed tobacco 11/29/[address]: 736377 Currently drinks alcohol 11/28 Has the patient [...] Start Date Stop Date Status Fill Instructions citalopram 40 mg tablet RxNorm: 922770 1 Tablet(s) Oral QD repl aces 20mg dose 03/01/2021 05/29/2021 Active Topamax 50 mg tablet RxNorm: 397234 1 Tablet(s) Oral two times a da y 03/01/2021 03/01/2021 Inactive oxybutynin chloride ER 10 mg tablet,extended release 24 hr R xNorm: 667221 Take 1 Tablet(s) Oral QD 02/20/2021 05/20/2021 Active norethindrone (contraceptive) 0.35 mg tablet RxNorm: 764395 1 T ablet(s) Oral QD 02/14/2021 01/15/2022 Active oxybutynin chloride ER 10 mg tablet,extended release 24 hr R xNorm: 690089 1 Tablet(s) Oral QD 01/23/2021 01/23/2021 Inactive oxybutynin chloride ER 10 mg tablet,extended release 24 hr R xNorm: 275966 1 Tablet(s) Oral QD 01/23/2021 01/23/2021 Inactive citalopram 40 mg tablet RxNorm: 585963 1 Tablet(s) Oral QD repl aces 20mg dose 12/03/2020 12/03/2020 Inactive citalopram 40 mg tablet RxNorm: 751934 1 Tablet(s) Oral QD repl aces 20mg dose 12/03/2020 12/03/2020 Inactive Topamax 50 mg tablet RxNorm: 692710 1 Tablet(s) Oral two times a da y 10/30/2020 03/01/2021 Inactive buspirone 10 mg tablet RxNorm: 003129 Take 1 Tablet(s) Oral two times a day as needed for anxiety 10/30/2020 01/27/2021 Inactive citalopram 20 mg tablet RxNorm: 623551 1 Tablet(s) Oral QD 09/11/1912/02/2020 Inactive propranolol 40 mg tablet RxNorm: 098884 1 Tablet(s) Oral two ti mes a day 07/16/2020 07/15/2020 Inactive propranolol 40 mg tablet RxNorm: 159788 1 Tablet(s) Oral two ti mes a day 07/16/2020 10/29/2020 Inactive Nurtec ODT 75 mg disintegrating tablet RxNorm: 8823764 1 Tablet(s) Sublingual QD as needed for headache take as directed but no more than 9 in a month. 07/02/2020 No Stop Date Active oxybutynin chloride 5 mg tablet RxNorm: 369599 1 Tablet(s) Oral QD 07/02/2020 01/22/2021 Inactive propranolol 40 mg tablet RxNorm: 968753 1 Tablet(s) Oral every night at bedtime 07/02/2020 07/15/2020 Inactive ProAir HFA 90 mcg/actuation aerosol inhaler RxNorm: 421802 2 Puff(s) Inhalation Q4H as needed 05/28/2020 05/27/2020 Inactive Medrol (Manuel) 4 mg tablets in a dose pack RxNorm: 503696 Tablet(s) Oral Take as prescribed 05/28/2020 05/27/2020 Inactive Zofran 4 mg tablet RxNorm: 980893 1 Tablet(s) Oral Q4H as neede d for nausea 05/28/2020 05/27/2020 Inactive Zofran 4 mg tablet RxNorm: 792942 1 Tablet(s) Oral Q4H as neede d for nausea 05/28/2020 05/28/2020 Inactive Medrol (Manuel) 4 mg tablets in a dose pack RxNorm: 092574 Tablet(s) Oral Take as prescribed 05/28/2020 05/28/2020 Inactive ProAir HFA 90 mcg/actuation aerosol inhaler RxNorm: 650955 2 Puff(s) Inhalation Q4H as needed 05/28/2020 05/28/2020 Inactive Augmentin 875 mg-125 mg tablet RxNorm: 375851 1 Tablet(s) Oral two times a day 05/25/2020 05/27/2020 Inactive citalopram 20 mg tablet RxNorm: 357816 Take 1 tablet by mouth o nce daily 05/22/2020 08/19/2020 Inactive diclofenac ER 100 mg tablet,extended release 24 hr RxNorm: 8 44209 1 Tablet(s) Oral two times a day as needed for headache 05/02/2020 05/01/2020 Inac tive diclofenac ER 100 mg tablet,extended release 24 hr RxNorm: 8 74836 1 Tablet(s) Oral two times a day as needed for headache 05/02/2020 05/02/2020 Inac tive prednisone 20 mg tablet RxNorm: 292422 1 Tablet(s) Oral two sherif es a day 05/01/2020 05/08/2020 Inactive Valtrex 1 gram tablet RxNorm: 900526 1 Tablet(s) Oral three sherif es a day 05/01/2020 05/08/2020 Inactive Lyrica 50 mg capsule RxNorm: 709387 1 Capsule(s) Oral QPM for n erve pain 04/27/2020 04/30/2020 Inactive Lyrica 50 mg capsule RxNorm: 380257 1 Capsule(s) Oral QPM for n erve pain 04/27/2020 04/26/2020 Inactive ketorolac 10 mg tablet RxNorm: 721914 1 Tablet(s) Oral four times a day as needed for pain with food 04/27/2020 04/30/2020 Inactive citalopram 20 mg tablet RxNorm: 072179 1 Tablet(s) Oral QD 03/12/20 20 05/21/2020 Inactive Loryna (28) 3 mg-0.02 mg tablet RxNorm: 3619424 1 Tablet (s) Oral Take as directed 03/12/2020 04/30/2020 Inactive Loryna (28) 3 mg-0.02 mg tablet RxNorm: 3361150 1 Tablet (s) Oral Take as directed 01/09/2020 03/11/2020 Inactive Loryna (28) 3 mg-0.02 mg tablet RxNorm: 7343375 1 Tablet (s) Oral Take as directed 01/09/2020 01/08/2020 Inactive citalopram 20 mg tablet RxNorm: 698310 1 Tablet(s) Oral QD 11/29/1903/11/2020 Inactive drospiren-e.estrad-l.mefol 3 mg-0.02 mg-0.451 mg(24)/0 .451 mg(4)tablet RxNorm: 3026514 1 Tablet(s) Oral QD 11/29/2019 04/30/2020 Inactive norethindrone (contraceptive) oral RxNorm: 7514 oral 02/14/2021 02/14/2021 Inactive Medication Administered No Medication Administered data Immunizations No Immunization data Results No Results data Procedures Procedure Codes Date THER/PROPH/DIAG INJ SC/IM CPT-4: 66131 05/01/2020 KETOROLAC TROMETHAMINE INJ CPT-4: J1885 05/01/2020 THER/PROPH/DIAG INJ SC/IM CPT-4: 68282 05/01/2020 METHYLPREDNISOLONE INJECTION CPT-4: J2930 05/01/2020 ONDANSETRON [...] 97.8 (F) We ight: 161 lbs Code: 71495-7 10/30/2020 Blood Pressure 1: 124/74 Code: 8480-6 BMI: 27.6 Code: 59594-2 Heart Rate 1: 92 bpm Height: 5'4" Code: 8302-2 Respiratory Rate: 16 bpm SpO2: 99% Temperature: 36.4 (C) / 97.5 (F) Weight: 161 lbs Code: 02467-3 09/03/2020 Blood Pressure 1: 124/64 Code: 8480-6 BMI: 28.2 Code: 16740-7 Heart Rate 1: 92 bpm Height: 5'4" Code: 8302-2 Respiratory Rate: 22 bpm SpO2: 96% Temperature: 36.7 (C) / 98.0 (F) Weight: 164 lbs Code: 67903-7 07/24/2020 Blood Pressure 1: 132/76 Code: 8480-6 BMI: 28.7 Code: 44066-8 Heart Rate 1: 90 bpm Height: 5'4" Code: 8302-2 Respiratory Rate: 16 bpm SpO2: 99% Temperature: 36.5 (C) / 97.7 (F) Weight: 167 lbs Code: 78207-2 07/02/2020 Blood Pressure 1: 127/76 Code: 8480-6 Heart Rate 1: 98 bpm Respiratory Rate: 15 bpm SpO2: 98% Temperature: 36.3 (C) / 97.3 (F) We ight: 167 lbs Code: 21937-4 05/25/2020 Blood Pressure 1: 118/76 Code: 8480-6 BMI: 29.2 Code: 02541-9 Heart Rate 1: 92 bpm Height: 5'4" Code: 8302-2 Respiratory Rate: 20 bpm SpO2: 96% Temperature: 36.2 (C) / 97.1 (F) Weight: 170 lbs Code: 27002-5 05/01/2020 Blood Pressure 1: 114/86 Code: 8480-6 Heart Rate 1: 104 bpm Respiratory Rate: 22 bpm SpO2: 99% Temperature: 36.9 (C) / 98.4 (F) 04/27/2020 Blood Pressure 1: 119/64 Code: 8480-6 Heart Rate 1: 95 bpm Respiratory Rate: 16 bpm SpO2: 98% Temperature: 36.4 (C) / 97.5 (F) We ight: 165 lbs Code: 50858-9 11/29/2019 Blood Pressure 1: 104/76 Code: 8480-6 BMI: 26.8 Code: 11765-2 Heart Rate 1: 80 bpm Height: 5'4" Code: 8302-2 Respiratory Rate: 20 bpm SpO2: 98% Temperature: 36.4 (C) / 97.5 (F) Weight: 156 lbs Code: 24403-3 Functional Status No Functional Status data Reason [...] visit Encounters Encounter Performer Location Codes Date () OFFICE/OUTPATIENT VISIT EST Diagnosis: Cephalgia[ICD10: R51.9] Diagnosis: Right ear pain[ICD10: H92.01] Perla BALDERAS DO [facility] CPT-4: 52714 02/11/2021 ([id number]) OFFICE/OUTPATIENT VISIT EST Diagnosis: Vaccine counseling[ICD10: Z71.89] Perla BALDERAS DO [facility] CPT-4: 79655 11/20/2020 ([id number]) OFFICE/OUTPATIENT VISIT EST Diagnosis: Generalized anxiety disorder[ICD10: F41.1] Diagnosis: Depression[ICD10: F32.9] Diagnosis: School physical exam[ICD10: Z02.0] Perla BALDERAS DO [facility] CPT-4: 05152 10/30/2020 ([id number]) OFFICE/OUTPATIENT VISIT EST Diagnosis: Left foot pain[ICD10: M79.672] Perla BALDERAS DO [facility] CPT-4: 42290 09/03/2020 ([id number]) OFFICE/OUTPATIENT VISIT EST Diagnosis: Cephalgia[ICD10: R51.9] Diagnosis: Generalized anxiety disorder[ICD10: F41.1] Perla BALDERAS DO [facility] CPT-4: 68852 07/24/2020 ([id number]) OFFICE/OUTPATIENT VISIT EST Diagnosis: Migraine aura, persistent, intractable, with status migrainosus[ICD10: G43.511] Diagnosis: Generalized anxiety disorder[ICD10: F41.1] Anusha BALDERAS DO [facility] CPT-4: 48688 07/02/2020 ([id number]) OFFICE/OUTPATIENT VISIT EST Diagnosis: Sinusitis[ICD10: J32.9] Anusha DEL CASTILLO DO [facility] CPT-4: 44365 05/25/2020 ([id number]) OFFICE/OUTPATIENT VISIT EST Diagnosis: Cephalgia[ICD10: R51.9] Diagnosis: Right sided numbness[ICD10: R20.0] Diagnosis: Nausea[ICD10: R11.0] Diagnosis: Right sided weakness[ICD10: R53.1] Aaron BALDERAS DO [facility] CPT-4: 84637 05/01/2020 ([id number]) OFFICE/OUTPATIENT VISIT EST Diagnosis: Cephalgia[ICD10: R51.9] Anusha JORGENSENND ABUNDIO [facility] CPT-4: 27660 04/27/2020 ([id number]) OFFICE/OUTPATIENT VISIT NEW Diagnosis: Endometriosis[ICD10: N80.9] Diagnosis: PCOS (polycystic ovarian syndrome)[ICD10: E28.2] Diagnosis: Depression[ICD10: F32.9] Diagnosis: Fatigue[ICD10: R53.83] Aaron Ojeda DO [facility] CPT-4: 51173 11/29/2019 Plan of Care Planned Activity Notes [...] discontinue in the past. Patient states her ob-supervisor firearms said it was okay. Patient states she [...] : H92.01 02/11/2021 App[facility]ment[facility] [phone] [facility] [facility] 02/11/2021 Patient Education: Patient Medication Summary Completed 02/11/2021 Visit Diagnosis Plan: Vaccine counseling Discussion: D iscussed contraindications, side effects, patient concerns on COVID vaccine- patient does not have any contraindications. Recommended COVID vaccine. Questions answered. Patient and mother voiced understanding. Print-outs given from [facility] website on MRNA vaccines and covid vaccine safety and side effects. ICD-9 : V65.49 ICD-10 : Z71.89 11/20/2020 Appointment: Perla Bowers WPtel: [phone] [facility] ACUTE ILLNESS 11/20/2020 Patient Education: Patient Medication [...] 10/30/2020 Appointment: Perla Bowers WPtel: [phone] [facility] FOLLOW UP 10/30/2020 Patient Education: Patient Medication Summary Completed 10/30/2020 Patient Education: buspirone- [employer] Coupon [id number] https://www.Bearch/samplemd/resources/getResource/61/j39a9c1i-d908-68kx-5s Completed 10/30/2020 Visit Diagnosis Plan: Left foot [...] 09/03/2020 Appointment: Perla Bowers WPtel: [phone] [facility] ACUTE ILLNESS 09/03/2020 Patient Education: Patient Medication Summary Completed 09/03/2020 Care Plan: X-RAY EXAM OF FOOT LOINC : 26 095-0 Pending 09/03/2020 Appointment: Aaron Balderas WPtel: [phone] [facility] [place] RESCHEDULED 07/30/2020 Visit Diagnosis Plan: Cephalgia [...] 07/24/2020 Appointment: Perla Bowers WPtel: [phone] FOLLOW UP 07/24/2020 Patient Education: Patient Medication Summary Completed 07/24/2020 Appointment: Anusha Chapin [facility] [address] RESCHEDULED 07/16/2020 Visit Diagnosis Plan: Migraine aura, [...] ICD-10 : F41.1 07/02/2020 Appointment: Anusha Chapin [facility] [id number] [place] ACUTE ILLNESS 07/02/2020 Patient Education: propranolol- [employer] Coupon [phone] https://www.Triangulate.com/samplemd/resources/getResource/61/47825so9-o05g-8m5x-5l Completed 07/02/2020 Visit Diagnosis Plan: Sinusitis Discussion: stop the m ucinex but continue with otc allergy meds. augmentin to cover for bacterial sinus infection but instructed patient to get tested for COVID. instructed her to contact [facility] for testing. patient verbalized understanding. ICD-9 : 473.9 ICD-10 : J32.9 05/25/2020 Appointment: Anusha Chapin [address] [place], [place] [id number] ACUTE ILLNESS 05/25/2020 Visit Diagnosis Plan: Right [...] R51.9 05/01/2020 Appointment: [facility]el[facility] [phone] [facility] [facility] 05/01/2020 Patient Education: prednisone- [employer] Coupon [phone] https://www.Triangulate.VenueBook/samplemd/resources/getResource/61/m7bsf313-9i98-3i70-ca Completed 05/01/2020 Patient Education: Valtrex- [employer] Coupon [id number] https://www.Bearch/samplemd/resources/getResource/61/ob42t9i3-2jv4-3588-u5 Completed 05/01/2020 Care Plan: Referral Order SNOMED-CT : 30 4751648 Pending 05/01/2020 Visit Diagnosis Plan: Cephalgia Discussion: [...] ICD-10 : R51.9 04/27/2020 Appointment: Anusha Chapin [address] [place], [place] [address] ACUTE ILLNESS 04/27/2020 Patient Education: ketorolac- [employer] Coupon [phone] https://www.Bearch/Triang[employer]/resources/getResource/61/61447881-fs14-17i1-rx Completed 04/27/2020 Visit Diagnosis Plan: Depression Discussion: Stable on citalopram Follow Up: 6 months ICD-9 : 311 ICD-10 : F32.9 11/29/2019 Visit Diagnosis Plan: Fatigue Discussion: Check CBC, T SH, Free T4, CMP, iron/ferritin, insulin levels ICD-9 : 780.79 ICD-10 : R53.83 11/29/2019 Visit Diagnosis Plan: Endometriosis Discussion: Follow s with INFORMATION SYSTEMS TECHNICIAN ICD-9 : 617.9 ICD-10 : N80.9 11/29/2019 Appointment: Aaron Balderas WPtel: [facility] NEW PATIENT 11/29/2019 Referral: Jerman Vizcarra WPtel: [facility] [address] [place] Referral Appointment Requested Instructions No Instructions Medical Equipment No Medical Equipment data Health Concerns Section Health Concerns data not found Goals Section Goals data not found Interventions Section Interventions data not found Health Status Evaluations/Outcomes Section Health Status Evaluations/Outcomes data not found Advance Directives No Advance Directive data
--- OUTSIDE RECORDS SUMMARY | 2021-04-11 23:13 | XMS REPORT | CCD ---
Author Author Melinda Balderas D.O. 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 Name Role Phone PP Unavailable CCM Unavailable Summary Purpose Interface Exchange Insurance Providers Payer name Policy type / Coverage type Covered democrat ID Effective Begin Date Effective End Date Blue Cross Blue Shield Blue Cross/Blue Shield [id number] 2019 Unknown Family History Family History data not found Social History Social History Element Codes Description Effective Dates Marital status Unknown Single 11/29/2019 Employment Unknown [facility] 11/29/[address]: 588683030 Has never smoked or chewed tobacco 11/29/[address]: 954253 Currently drinks alcohol 11/28 Has the patient [...] mg tablet,extended release 24 hr R xNorm: 340495 Take 1 Tablet(s) Oral QD 02/20/2021 05/20/2021 Active norethindrone (contraceptive) 0.35 mg tablet RxNorm: 093612 1 T ablet(s) Oral QD 02/14/2021 01/15/2022 Active oxybutynin chloride ER 10 mg tablet,extended release 24 hr R xNorm: 694233 1 Tablet(s) Oral QD 01/23/2021 01/23/2021 Inactive oxybutynin chloride ER 10 mg tablet,extended release 24 hr R xNorm: 366201 1 Tablet(s) Oral QD 01/23/2021 01/23/2021 Inactive citalopram 40 mg tablet RxNorm: 093505 1 Tablet(s) Oral QD repl aces 20mg dose 12/03/2020 03/02/2021 Active citalopram 40 mg tablet RxNorm: 760132 1 Tablet(s) Oral QD repl aces 20mg dose 12/03/2020 12/03/2020 Inactive Topamax 50 mg tablet RxNorm: 420878 1 Tablet(s) Oral two times a da y 10/30/2020 No Stop Date Active buspirone 10 mg tablet RxNorm: 775979 Take 1 Tablet(s) Oral two times a day as needed for anxiety 10/30/2020 01/27/2021 Inactive citalopram 20 mg tablet RxNorm: 106883 1 Tablet(s) Oral QD 09/11/1912/02/2020 Inactive propranolol 40 mg tablet RxNorm: 443223 1 Tablet(s) Oral two ti mes a day 07/16/2020 07/15/2020 Inactive propranolol 40 mg tablet RxNorm: 134352 1 Tablet(s) Oral two ti mes a day 07/16/2020 10/29/2020 Inactive Nurtec ODT 75 mg disintegrating tablet RxNorm: 6451733 1 Tablet(s) Sublingual QD as needed for headache take as directed but no more than 9 in a month. 07/02/2020 No Stop Date Active oxybutynin chloride 5 mg tablet RxNorm: 328894 1 Tablet(s) Oral QD 07/02/2020 01/22/2021 Inactive propranolol 40 mg tablet RxNorm: 997978 1 Tablet(s) Oral every night at bedtime 07/02/2020 07/15/2020 Inactive ProAir HFA 90 mcg/actuation aerosol inhaler RxNorm: 726662 2 Puff(s) Inhalation Q4H as needed 05/28/2020 05/27/2020 Inactive Medrol (Manuel) 4 mg tablets in a dose pack RxNorm: 515744 Tablet(s) Oral Take as prescribed 05/28/2020 05/27/2020 Inactive Zofran 4 mg tablet RxNorm: 648539 1 Tablet(s) Oral Q4H as neede d for nausea 05/28/2020 05/27/2020 Inactive Zofran 4 mg tablet RxNorm: 520125 1 Tablet(s) Oral Q4H as neede d for nausea 05/28/2020 05/28/2020 Inactive Medrol (Manuel) 4 mg tablets in a dose pack RxNorm: 102586 Tablet(s) Oral Take as prescribed 05/28/2020 05/28/2020 Inactive ProAir HFA 90 mcg/actuation aerosol inhaler RxNorm: 973269 2 Puff(s) Inhalation Q4H as needed 05/28/2020 05/28/2020 Inactive Augmentin 875 mg-125 mg tablet RxNorm: 926808 1 Tablet(s) Oral two times a day 05/25/2020 05/27/2020 Inactive citalopram 20 mg tablet RxNorm: 140855 Take 1 tablet by mouth o nce daily 05/22/2020 08/19/2020 Inactive diclofenac ER 100 mg tablet,extended release 24 hr RxNorm: 8 04157 1 Tablet(s) Oral two times a day as needed for headache 05/02/2020 05/01/2020 Inac tive diclofenac ER 100 mg tablet,extended release 24 hr RxNorm: 8 47986 1 Tablet(s) Oral two times a day as needed for headache 05/02/2020 05/02/2020 Inac tive prednisone 20 mg tablet RxNorm: 649734 1 Tablet(s) Oral two sherif es a day 05/01/2020 05/08/2020 Inactive Valtrex 1 gram tablet RxNorm: 104872 1 Tablet(s) Oral three sherif es a day 05/01/2020 05/08/2020 Inactive Lyrica 50 mg capsule RxNorm: 989446 1 Capsule(s) Oral QPM for n erve pain 04/27/2020 04/30/2020 Inactive Lyrica 50 mg capsule RxNorm: 798133 1 Capsule(s) Oral QPM for n erve pain 04/27/2020 04/26/2020 Inactive ketorolac 10 mg tablet RxNorm: 294839 1 Tablet(s) Oral four times a day as needed for pain with food 04/27/2020 04/30/2020 Inactive citalopram 20 mg tablet RxNorm: 908222 1 Tablet(s) Oral QD 03/12/20 20 05/21/2020 Inactive Loryna (28) 3 mg-0.02 mg tablet RxNorm: 2770376 1 Tablet (s) Oral Take as directed 03/12/2020 04/30/2020 Inactive Loryna (28) 3 mg-0.02 mg tablet RxNorm: 7210874 1 Tablet (s) Oral Take as directed 01/09/2020 03/11/2020 Inactive Loryna (28) 3 mg-0.02 mg tablet RxNorm: 0274794 1 Tablet (s) Oral Take as directed 01/09/2020 01/08/2020 Inactive citalopram 20 mg tablet RxNorm: 149638 1 Tablet(s) Oral QD 11/29/19 20 03/11/2020 Inactive drospiren-e.estrad-l.mefol 3 mg-0.02 mg-0.451 mg(24)/0 .451 mg(4)tablet RxNorm: 0382250 1 Tablet(s) Oral QD 11/29/2019 04/30/2020 Inactive norethindrone (contraceptive) oral RxNorm: 7514 oral 02/14/2021 02/14/2021 Inactive Medication Administered No Medication Administered data Immunizations No Immunization data Results No Results data Procedures Procedure Codes Date THER/PROPH/DIAG INJ SC/IM CPT-4: 38846 05/01/2020 KETOROLAC TROMETHAMINE INJ CPT-4: J1885 05/01/2020 THER/PROPH/DIAG INJ SC/IM CPT-4: 74144 05/01/2020 METHYLPREDNISOLONE INJECTION CPT-4: J2930 05/01/2020 ONDANSETRON [...] 97.8 (F) We ight: 161 lbs Code: 87754-1 10/30/2020 Blood Pressure 1: 124/74 Code: 8480-6 BMI: 27.6 Code: 07927-2 Heart Rate 1: 92 bpm Height: 5'4" Code: 8302-2 Respiratory Rate: 16 bpm SpO2: 99% Temperature: 36.4 (C) / 97.5 (F) Weight: 161 lbs Code: 36298-2 09/03/2020 Blood Pressure 1: 124/64 Code: 8480-6 BMI: 28.2 Code: 64078-4 Heart Rate 1: 92 bpm Height: 5'4" Code: 8302-2 Respiratory Rate: 22 bpm SpO2: 96% Temperature: 36.7 (C) / 98.0 (F) Weight: 164 lbs Code: 18998-3 07/24/2020 Blood Pressure 1: 132/76 Code: 8480-6 BMI: 28.7 Code: 69717-2 Heart Rate 1: 90 bpm Height: 5'4" Code: 8302-2 Respiratory Rate: 16 bpm SpO2: 99% Temperature: 36.5 (C) / 97.7 (F) Weight: 167 lbs Code: 56882-4 07/02/2020 Blood Pressure 1: 127/76 Code: 8480-6 Heart Rate 1: 98 bpm Respiratory Rate: 15 bpm SpO2: 98% Temperature: 36.3 (C) / 97.3 (F) We ight: 167 lbs Code: 41513-7 05/25/2020 Blood Pressure 1: 118/76 Code: 8480-6 BMI: 29.2 Code: 42491-1 Heart Rate 1: 92 bpm Height: 5'4" Code: 8302-2 Respiratory Rate: 20 bpm SpO2: 96% Temperature: 36.2 (C) / 97.1 (F) Weight: 170 lbs Code: 37162-9 05/01/2020 Blood Pressure 1: 114/86 Code: 8480-6 Heart Rate 1: 104 bpm Respiratory Rate: 22 bpm SpO2: 99% Temperature: 36.9 (C) / 98.4 (F) 04/27/2020 Blood Pressure 1: 119/64 Code: 8480-6 Heart Rate 1: 95 bpm Respiratory Rate: 16 bpm SpO2: 98% Temperature: 36.4 (C) / 97.5 (F) We ight: 165 lbs Code: 74157-0 11/29/2019 Blood Pressure 1: 104/76 Code: 8480-6 BMI: 26.8 Code: 13218-9 Heart Rate 1: 80 bpm Height: 5'4" Code: 8302-2 Respiratory Rate: 20 bpm SpO2: 98% Temperature: 36.4 (C) / 97.5 (F) Weight: 156 lbs Code: 59401-9 Functional Status No Functional Status data Reason For Visit Reason For Visit Effective Dates Notes otalgia 02/11/2021 ~generic 11/20/2020 Patient is here to gasper Crespoid19 Vaccination and possible side effects. Patient has [...] visit Encounters Encounter Performer Location Codes Date ([id number]) OFFICE/OUTPATIENT VISIT EST Diagnosis: Cephalgia[ICD10: R51.9] Diagnosis: Right ear pain[ICD10: H92.01] Perla Kirby [email or web address] CPT-4: 32876 02/11/2021 ([id number]) OFFICE/OUTPATIENT VISIT EST Diagnosis: Vaccine counseling[ICD10: Z71.89] Perla Berkowitz [employer] CPT-4: 61925 11/20/2020 ([id number]) OFFICE/OUTPATIENT VISIT EST Diagnosis: Generalized anxiety disorder[ICD10: F41.1] Diagnosis: Depression[ICD10: F32.9] Diagnosis: School physical exam[ICD10: Z02.0] Perla HEAD [employer] CPT-4: 63919 10/30/2020 ([id number]) OFFICE/OUTPATIENT VISIT EST Diagnosis: Left foot pain[ICD10: M79.672] Perla BALDERAS DO [facility] CPT-4: 83015 09/03/2020 ([id number]) OFFICE/OUTPATIENT VISIT EST Diagnosis: Cephalgia[ICD10: R51.9] Diagnosis: Generalized anxiety disorder[ICD10: F41.1] Perla BALDERAS DO [facility] CPT-4: 76057 07/24/2020 ([id number]) OFFICE/OUTPATIENT VISIT EST Diagnosis: Migraine aura, persistent, intractable, with status migrainosus[ICD10: G43.511] Diagnosis: Generalized anxiety disorder[ICD10: F41.1] Anusha BALDERAS DO [facility] CPT-4: 64685 07/02/2020 ([id number]) OFFICE/OUTPATIENT VISIT EST Diagnosis: Sinusitis[ICD10: J32.9] Anusha Varelaimaldi BRUNA ChristianIsreal TESSIE DEL CASTILLO [email or web address] CPT-4: 73201 05/25/2020 ([id number]) OFFICE/OUTPATIENT VISIT EST Diagnosis: Cephalgia[ICD10: R51.9] Diagnosis: Right sided numbness[ICD10: R20.0] Diagnosis: Nausea[ICD10: R11.0] Diagnosis: Right sided weakness[ICD10: R53.1] Bruna HEAD Mirta BALDERAS [email or web address] CPT-4: 93334 05/01/2020 ([id number]) OFFICE/OUTPATIENT VISIT EST Diagnosis: Cephalgia[ICD10: R51.9] Anusha MENDESLINE Mirta DEL CASTILLO [email or web address] CPT-4: 63454 04/27/2020 ([id number]) OFFICE/OUTPATIENT VISIT NEW Diagnosis: Endometriosis[ICD10: N80.9] Diagnosis: PCOS (polycystic ovarian syndrome)[ICD10: E28.2] Diagnosis: Depression[ICD10: F32.9] Diagnosis: Fatigue[ICD10: R53.83] Bruna WALKER ChristianIsreal SHIRA Ojeda [email or web address] CPT-4: 75211 11/29/2019 Plan of Care Planned Activity Notes [...] discontinue in the past. Patient states her ob-helmet binder said it was okay. Patient states she [...] 02/11/2021 Appointment: Perla Bowers WPtel: [phone] [facility] [place] ACUTE ILLNESS 02/11/2021 Patient Education: Patient Medication Summary Completed 02/11/2021 Visit Diagnosis Plan: Vaccine counseling Discussion: D iscussed contraindications, side effects, patient concerns on COVID vaccine- patient does not have any contraindications. Recommended COVID vaccine. Questions answered. Patient and mother voiced understanding. Print-outs given from [facility] website on MRNA vaccines and covid vaccine safety and side effects. ICD-9 : V65.49 ICD-10 : Z71.89 11/20/2020 App[facility]ment: [facility] [phone] [facility] [place] [facility] 11/20/2020 Patient Education: Patient Medication [...] Z02.0 10/30/2020 Appointment: Perla Bowers WPtel: [phone] [facility] [place] FOLLOW UP 10/30/2020 Patient Education: Patient Medication Summary Completed 10/30/2020 Patient Education: buspirone- [employer] Coupon [id number] https://www.[employer].com/samplemd/resources/getResource/61/u91d7z9n-j975-68lj-2g Completed 10/30/2020 Visit Diagnosis Plan: Left foot [...] M79.672 09/03/2020 Appointment: Perla Bowers WPtel: [phone] [facility] ACUTE ILLNESS 09/03/2020 Patient Education: Patient Medication Summary Completed 09/03/2020 Care Plan: X-RAY EXAM OF FOOT LOINC : 26 095-0 Pending 09/03/2020 Appointment: Bruna Balderas WPtel: [phone] [facility] [place] RESCHEDULED 07/30/2020 Visit Diagnosis Plan: Cephalgia [...] 07/24/2020 Appointment: Perla Bowers WPtel: [phone] [id number] FOLLOW UP 07/24/2020 Patient Education: Patient Medication Summary Completed 07/24/2020 Appointment: Anusha Chapin [address] [place] [address] RESCHEDULED 07/16/2020 Visit Diagnosis Plan: Migraine aura, [...] ICD-10 : F41.1 07/02/2020 Appointment: Anusha Chapin [address] [place], [place] [id number] ACUTE ILLNESS 07/02/2020 Patient Education: propranolol- [employer] Coupon [phone] https://www.[employer].com/samplemd/resources/getResource/61/86788nt0-d99e-6y3g-0q Completed 07/02/2020 Visit Diagnosis Plan: Sinusitis Discussion: stop the m ucinex but continue with otc allergy meds. augmentin to cover for bacterial sinus infection but instructed patient to get tested for COVID. instructed her to contact [facility] for testing. patient verbalized understanding. ICD-9 : 473.9 ICD-10 : J32.9 05/25/2020 Appointment: Anusha Chapin [address] [place], [place] [address] ACUTE ILLNESS 05/25/2020 Visit Diagnosis Plan: Right [...] R51.9 05/01/2020 Appointment: [facility]el[facility] [phone] [facility] [facility] Follow Up 05/01/2020 Patient Education: prednisone- [employer] Coupon [phone] https://www.[employer].com/samplemd/resources/getResource/61/[email or web address]-zy Completed 05/01/2020 Patient Education: Valtrex- [employer] Coupon [phone] [id number] https://www.[employer].FOODITY/samplemd/resources/getResource/61/di15q7y8-3iy2-7161-n8 Completed 05/01/2020 Care Plan: Referral Order SNOMED-CT : 30 0417701 Pending 05/01/2020 Visit Diagnosis Plan: Cephalgia Discussion: [...] : R51.9 04/27/2020 Appointment: Anusha Chapin [address] [place], [place] [address] ACUTE ILLNESS 04/27/2020 Patient Education: ketorolac- [employer] Coupon [phone] https://www.[employer].FOODITY/samplemd/resources/getResource/61/09775307-rp00-13y4-iq Completed 04/27/2020 Visit Diagnosis Plan: Depression Discussion: Stable on citalopram Follow Up: 6 months ICD-9 : 311 ICD-10 : F32.9 11/29/2019 Visit Diagnosis Plan: Fatigue Discussion: Check CBC, T SH, Free T4, CMP, iron/ferritin, insulin levels ICD-9 : 780.79 ICD-10 : R53.83 11/29/2019 Visit Diagnosis Plan: Endometriosis Discussion: Follow s with FILM BOOKER ICD-9 : 617.9 ICD-10 : N80.9 11/29/2019 Appointment: Bruna Balderas [facility]Ptel[facility] [phone] [facility] [facility] 11/29/2019 Ref[facility] [address] [place], [place] [id number] [place] Referral Appointment Requested Instructions No Instructions Medical Equipment No Medical Equipment data Health Concerns Section Health Concerns data not found Goals Section Goals data not found Interventions Section Interventions data not found Health Status Evaluations/Outcomes Section Health Status Evaluations/Outcomes data not found Advance Directives No Advance Directive data
--- OUTSIDE RECORDS SUMMARY | 2021-04-11 23:13 | XMS REPORT | CCD ---
Author Author Melinda Balderas D.O. [facility] Organization AARON BALDERAS DO [facility] Address [address] [place] [address] Phone Care Team Providers Care Microbiology Lab Analyst Name Role Phone PP Unavailable CCM Unavailable Summary Purpose Interface Exchange Insurance Providers Payer name Policy type / Coverage type Covered constitution party ID Effective Begin Date Effective End Date Blue Cross Blue Shield Blue Cross/Blue Shield [id number] 2019 Unknown Family History Family History data not found Social History Social History Element Codes Description Effective Dates Marital status Unknown Single 11/29/2019 Employment Unknown [facility] 11/29/[address]: 528953293 Has never smoked or chewed tobacco 11/29/[address]: 274061 Currently drinks alcohol 11/28 Has the patient [...] mg tablet,extended release 24 hr R xNorm: 318300 1 Tablet(s) Oral QD 01/23/2021 02/21/2021 Active oxybutynin chloride ER 10 mg tablet,extended release 24 hr R xNorm: 566425 1 Tablet(s) Oral QD 01/23/2021 01/23/2021 Inactive citalopram 40 mg tablet RxNorm: 639688 1 Tablet(s) Oral QD repl aces 20mg dose 12/03/2020 03/02/2021 Active citalopram 40 mg tablet RxNorm: 336589 1 Tablet(s) Oral QD repl aces 20mg dose 12/03/2020 12/03/2020 Inactive Topamax 50 mg tablet RxNorm: 943670 1 Tablet(s) Oral two times a da y 10/30/2020 No Stop Date Active buspirone 10 mg tablet RxNorm: 384856 Take 1 Tablet(s) Oral two times a day as needed for anxiety 10/30/2020 01/27/2021 Inactive citalopram 20 mg tablet RxNorm: 000806 1 Tablet(s) Oral QD 09/11/1912/02/2020 Inactive propranolol 40 mg tablet RxNorm: 396771 1 Tablet(s) Oral two ti mes a day 07/16/2020 07/15/2020 Inactive propranolol 40 mg tablet RxNorm: 998957 1 Tablet(s) Oral two ti mes a day 07/16/2020 10/29/2020 Inactive Nurtec ODT 75 mg disintegrating tablet RxNorm: 7850413 1 Tablet(s) Sublingual QD as needed for headache take as directed but no more than 9 in a month. 07/02/2020 No Stop Date Active oxybutynin chloride 5 mg tablet RxNorm: 469221 1 Tablet(s) Oral QD 07/02/2020 01/22/2021 Inactive propranolol 40 mg tablet RxNorm: 796598 1 Tablet(s) Oral every night at bedtime 07/02/2020 07/15/2020 Inactive ProAir HFA 90 mcg/actuation aerosol inhaler RxNorm: 970538 2 Puff(s) Inhalation Q4H as needed 05/28/2020 05/27/2020 Inactive Medrol (Manuel) 4 mg tablets in a dose pack RxNorm: 882402 Tablet(s) Oral Take as prescribed 05/28/2020 05/27/2020 Inactive Zofran 4 mg tablet RxNorm: 567435 1 Tablet(s) Oral Q4H as neede d for nausea 05/28/2020 05/27/2020 Inactive Zofran 4 mg tablet RxNorm: 347226 1 Tablet(s) Oral Q4H as neede d for nausea 05/28/2020 05/28/2020 Inactive Medrol (Manuel) 4 mg tablets in a dose pack RxNorm: 704972 Tablet(s) Oral Take as prescribed 05/28/2020 05/28/2020 Inactive ProAir HFA 90 mcg/actuation aerosol inhaler RxNorm: 226416 2 Puff(s) Inhalation Q4H as needed 05/28/2020 05/28/2020 Inactive Augmentin 875 mg-125 mg tablet RxNorm: 300069 1 Tablet(s) Oral two times a day 05/25/2020 05/27/2020 Inactive citalopram 20 mg tablet RxNorm: 436180 Take 1 tablet by mouth o nce daily 05/22/2020 08/19/2020 Inactive diclofenac ER 100 mg tablet,extended release 24 hr RxNorm: 8 55840 1 Tablet(s) Oral two times a day as needed for headache 05/02/2020 05/01/2020 Inac tive diclofenac ER 100 mg tablet,extended release 24 hr RxNorm: 8 62255 1 Tablet(s) Oral two times a day as needed for headache 05/02/2020 05/02/2020 Inac tive prednisone 20 mg tablet RxNorm: 030691 1 Tablet(s) Oral two sherif es a day 05/01/2020 05/08/2020 Inactive Valtrex 1 gram tablet RxNorm: 963941 1 Tablet(s) Oral three sherif es a day 05/01/2020 05/08/2020 Inactive Lyrica 50 mg capsule RxNorm: 681780 1 Capsule(s) Oral QPM for n erve pain 04/27/2020 04/30/2020 Inactive Lyrica 50 mg capsule RxNorm: 590526 1 Capsule(s) Oral QPM for n erve pain 04/27/2020 04/26/2020 Inactive ketorolac 10 mg tablet RxNorm: 064929 1 Tablet(s) Oral four times a day as needed for pain with food 04/27/2020 04/30/2020 Inactive citalopram 20 mg tablet RxNorm: 606192 1 Tablet(s) Oral QD 03/12/2005/21/2020 Inactive Loryna (28) 3 mg-0.02 mg tablet RxNorm: 0958882 1 Tablet (s) Oral Take as directed 03/12/2020 04/30/2020 Inactive Loryna (28) 3 mg-0.02 mg tablet RxNorm: 6546459 1 Tablet (s) Oral Take as directed 01/09/2020 03/11/2020 Inactive Loryna (28) 3 mg-0.02 mg tablet RxNorm: 9960974 1 Tablet (s) Oral Take as directed 01/09/2020 01/08/2020 Inactive citalopram 20 mg tablet RxNorm: 163294 1 Tablet(s) Oral QD 11/29/19 20 03/11/2020 Inactive drospiren-e.estrad-l.mefol 3 mg-0.02 mg-0.451 mg(24)/0 .451 mg(4)tablet RxNorm: 4474418 1 Tablet(s) Oral QD 11/29/2019 04/30/2020 Inactive Medication Administered No Medication Administered data Immunizations No Immunization data Results No Results data Procedures Procedure Codes Date THER/PROPH/DIAG INJ SC/IM CPT-4: 85715 05/01/2020 KETOROLAC TROMETHAMINE INJ CPT-4: J1885 05/01/2020 THER/PROPH/DIAG INJ SC/IM CPT-4: 64644 05/01/2020 METHYLPREDNISOLONE INJECTION CPT-4: J2930 05/01/2020 ONDANSETRON [...] 97.8 (F) We ight: 161 lbs Code: 70989-7 10/30/2020 Blood Pressure 1: 124/74 Code: 8480-6 BMI: 27.6 Code: 67996-0 Heart Rate 1: 92 bpm Height: 5'4" Code: 8302-2 Respiratory Rate: 16 bpm SpO2: 99% Temperature: 36.4 (C) / 97.5 (F) Weight: 161 lbs Code: 32049-7 09/03/2020 Blood Pressure 1: 124/64 Code: 8480-6 BMI: 28.2 Code: 93556-1 Heart Rate 1: 92 bpm Height: 5'4" Code: 8302-2 Respiratory Rate: 22 bpm SpO2: 96% Temperature: 36.7 (C) / 98.0 (F) Weight: 164 lbs Code: 95935-8 07/24/2020 Blood Pressure 1: 132/76 Code: 8480-6 BMI: 28.7 Code: 10394-2 Heart Rate 1: 90 bpm Height: 5'4" Code: 8302-2 Respiratory Rate: 16 bpm SpO2: 99% Temperature: 36.5 (C) / 97.7 (F) Weight: 167 lbs Code: 94541-5 07/02/2020 Blood Pressure 1: 127/76 Code: 8480-6 Heart Rate 1: 98 bpm Respiratory Rate: 15 bpm SpO2: 98% Temperature: 36.3 (C) / 97.3 (F) We ight: 167 lbs Code: 24675-4 05/25/2020 Blood Pressure 1: 118/76 Code: 8480-6 BMI: 29.2 Code: 69330-0 Heart Rate 1: 92 bpm Height: 5'4" Code: 8302-2 Respiratory Rate: 20 bpm SpO2: 96% Temperature: 36.2 (C) / 97.1 (F) Weight: 170 lbs Code: 57260-8 05/01/2020 Blood Pressure 1: 114/86 Code: 8480-6 Heart Rate 1: 104 bpm Respiratory Rate: 22 bpm SpO2: 99% Temperature: 36.9 (C) / 98.4 (F) 04/27/2020 Blood Pressure 1: 119/64 Code: 8480-6 Heart Rate 1: 95 bpm Respiratory Rate: 16 bpm SpO2: 98% Temperature: 36.4 (C) / 97.5 (F) We ight: 165 lbs Code: 17799-7 11/29/2019 Blood Pressure 1: 104/76 Code: 8480-6 BMI: 26.8 Code: 27377-0 Heart Rate 1: 80 bpm Height: 5'4" Code: 8302-2 Respiratory Rate: 20 bpm SpO2: 98% Temperature: 36.4 (C) / 97.5 (F) Weight: 156 lbs Code: 52462-1 Functional Status No Functional Status data Reason [...] visit Encounters Encounter Performer Location Codes Date ([id number]) OFFICE/OUTPATIENT VISIT EST Diagnosis: Cephalgia[ICD10: R51.9] Diagnosis: Right ear pain[ICD10: H92.01] [facility] CPT-[facility]: 22333 02/11/2021 ([id number]) OFFICE/OUTPATIENT VISIT EST Diagnosis: Vaccine counseling[ICD10: Z71.89] [facility]owitz [facility] CPT-4: 34692 11/20/2020 ([id number]) OFFICE/OUTPATIENT VISIT EST Diagnosis: Generalized anxiety disorder[ICD10: F41.1] Diagnosis: Depression[ICD10: F32.9] Diagnosis: School physical exam[ICD10: Z02.0] [facility] HEAD [facility] CPT-4: 78035 10/30/2020 ([id number]) OFFICE/OUTPATIENT VISIT EST Diagnosis: Left foot pain[ICD10: M79.672] Perla WALKER [facility] [employer] CPT-4: 13761 09/03/2020 ([id number]) OFFICE/OUTPATIENT VISIT EST Diagnosis: Cephalgia[ICD10: R51.9] Diagnosis: Generalized anxiety disorder[ICD10: F41.1] [facility] CPT-4: 74404 07/24/2020 ([id number]) OFFICE/OUTPATIENT VISIT EST Diagnosis: Migraine aura, persistent, intractable, with status migrainosus[ICD10: G43.511] Diagnosis: Generalized anxiety disorder[ICD10: F41.1] Anusha BALDERAS DO [employer] CPT-4: 10933 07/02/2020 ([id number]) OFFICE/OUTPATIENT VISIT EST Diagnosis: Sinusitis[ICD10: J32.9] Anusha DEL CASTILLO DO [facility] CPT-4: 94304 05/25/2020 ([id number]) OFFICE/OUTPATIENT VISIT EST Diagnosis: Cephalgia[ICD10: R51.9] Diagnosis: Right sided numbness[ICD10: R20.0] Diagnosis: Nausea[ICD10: R11.0] Diagnosis: Right sided weakness[ICD10: R53.1] Aaron LUAJN SONIDO BALDERAS [facility] CPT-4: 45673 05/01/2020 ([id number]) OFFICE/OUTPATIENT VISIT EST Diagnosis: Cephalgia[ICD10: R51.9] Anusha DEL CASTILLO [facility] CPT-4: 71324 04/27/2020 ([id number]) OFFICE/OUTPATIENT VISIT NEW Diagnosis: Endometriosis[ICD10: N80.9] Diagnosis: PCOS (polycystic ovarian syndrome)[ICD10: E28.2] Diagnosis: Depression[ICD10: F32.9] Diagnosis: Fatigue[ICD10: R53.83] Aaron WALKER [facility] CPT-4: 33526 11/29/2019 Plan of Care Planned Activity Notes [...] discontinue in the past. 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 Patient states she [...] 02/11/2021 Appointment: Perla Bowers WPtel: [phone] ACUTE ILLNESS 02/11/2021 Patient Education: Patient Medication Summary Completed 02/11/2021 Visit Diagnosis Plan: Vaccine counseling Discussion: D iscussed contraindications, side effects, patient concerns on COVID vaccine- patient does not have any contraindications. Recommended COVID vaccine. Questions answered. Patient and mother voiced understanding. Print-outs given from [facility] website on MRNA vaccines and covid vaccine safety and side effects. ICD-9 : V65.49 ICD-10 : Z71.89 11/20/2020 Appointment: Perla Bowers WPtel: [phone] ACUTE ILLNESS 11/20/2020 Patient Education: Patient [...] 10/30/2020 Appointment: Perla Bowers WPtel: [phone] [id number] FOLLOW UP 10/30/2020 Patient Education: Patient Medication Summary Completed 10/30/2020 Patient Education: buspirone- Opt[employer] Coupon [id number] [email or web address] Completed 10/30/2020 Visit Diagnosis Plan: Left foot [...] 09/03/2020 Appointment: Perla Bowers WPtel: [phone] [facility] ACUTE ILLNESS 09/03/2020 Patient Education: Patient Medication Summary Completed 09/03/2020 Care Plan: X-RAY EXAM OF FOOT LOINC : 26 095-0 Pending 09/03/2020 Appointment: Aaron Balderas WPtel: [phone] [facility] RESCHEDULED 07/30/2020 Visit Diagnosis Plan: Cephalgia [...] aura or not, aura explained. [facility]. Will f/u after appt with neurology. ICD-9 : 784.0 ICD-10 : R51.9 07/24/2020 Appointment: Perla Bowers WPtel: [phone] [facility] FOLLOW UP 07/24/2020 Patient Education: Patient Medication Summary Completed 07/24/2020 Appointment: Anusha Chapin [address] [place], [place] [id number] RESCHEDULED 07/16/2020 Visit Diagnosis Plan: Migraine aura, [...] ICD-10 : F41.1 07/02/2020 Appointment: Anusha Chapin [address] [place] [address] ACUTE ILLNESS 07/02/2020 Patient Education: propranolol- Opt[employer] Coupon [phone] [email or web address]/[email or web address] Completed 07/02/2020 Visit Diagnosis Plan: Sinusitis Discussion: stop the m ucinex but continue with otc allergy meds. augmentin to cover for bacterial sinus infection but instructed patient to get tested for COVID. instructed her to contact [facility] for testing. patient verbalized understanding. ICD-9 : 473.9 ICD-10 : J32.9 05/25/2020 Appointment: Anusha Chapin [address] [place], [place] [address] ACUTE ILLNESS 05/25/2020 Visit Diagnosis Plan: Right [...] R51.9 05/01/2020 Appointment: Aaron Balderas WPtel: [phone] [facility] [place] [address] Follow Up 05/01/2020 Patient Education: prednisone- Opt[employer] Coupon [phone] [email or web address]/[email or web address] Completed 05/01/2020 Patient Education: Valtrex- [employer] Coupon [id number] [id number] [email or web address]/[email or web address] Completed 05/01/2020 Care Plan: Referral Order SNOMED-CT : 30 [id number] Pending 05/01/2020 Visit Diagnosis Plan: Cephalgia Discussion: [...] ICD-10 : R51.9 04/27/2020 Appointment: Anusha Chapin [address] [place], [place] [address] ACUTE ILLNESS 04/27/2020 Patient Education: ketorolac- [employer] Coupon [phone] [email or web address]/[email or web address] Completed 04/27/2020 Visit Diagnosis Plan: Depression Discussion: Stable on citalopram Follow Up: 6 months ICD-9 : 311 ICD-10 : F32.9 11/29/2019 Visit Diagnosis Plan: Fatigue Discussion: Check CBC, T SH, Free T4, CMP, iron/ferritin, insulin levels ICD-9 : 780.79 ICD-10 : R53.83 11/29/2019 Visit Diagnosis Plan: Endometriosis Discussion: Follow s with [facility] [facility] ICD-9 : 617.9 ICD-10 : N80.9 11/29/2019 Appointment: Aaron Balderas WPtel: [facility] NEW PATIENT 11/29/2019 Referral: Jerman Vizcarra WPtel: [facility] [address] [place] [address] Referral Appointment Requested Instructions No Instructions Medical Equipment No Medical Equipment data Health Concerns Section Health Concerns data not found Goals Section Goals data not found Interventions Section Interventions data not found Health Status Evaluations/Outcomes Section Health Status Evaluations/Outcomes data not found Advance Directives No Advance Directive data
--- OUTSIDE RECORDS SUMMARY | 2021-04-11 23:13 | XMS REPORT | CCD ---
Author Author Melinda Balderas D.O. [facility] Organization BRUNA BALDERAS DO [facility] Address [address] [place] [address] Phone Care Team Providers Care Signals Intelligence Analysis Manager Name Role Phone PP Unavailable CCM Unavailable Summary Purpose Interface Exchange Insurance Providers Payer name Policy type / Coverage type Covered republican ID Effective Begin Date Effective End Date Blue Cross Blue Shield Blue Cross/Blue Shield [id number] 2019 Unknown Family History Family History data not found Social History Social History Element Codes Description Effective Dates Marital status Unknown Single 11/29/2019 Employment Unknown [facility] 11/29/[address]: 048112169 Has never smoked or chewed tobacco 11/29/[address]: 693379 Currently drinks alcohol 11/28 Has the patient [...] Start Date Stop Date Status Fill Instructions norethindrone (contraceptive) 0.35 mg tablet RxNorm: 746628 1 T ablet(s) Oral QD 02/14/2021 01/15/2022 Active oxybutynin chloride ER 10 mg tablet,extended release 24 hr R xNorm: 710618 1 Tablet(s) Oral QD 01/23/2021 02/21/2021 Active oxybutynin chloride ER 10 mg tablet,extended release 24 hr R xNorm: 051269 1 Tablet(s) Oral QD 01/23/2021 01/23/2021 Inactive citalopram 40 mg tablet RxNorm: 775180 1 Tablet(s) Oral QD repl aces 20mg dose 12/03/2020 03/02/2021 Active citalopram 40 mg tablet RxNorm: 985219 1 Tablet(s) Oral QD repl aces 20mg dose 12/03/2020 12/03/2020 Inactive Topamax 50 mg tablet RxNorm: 119408 1 Tablet(s) Oral two times a da y 10/30/2020 No Stop Date Active buspirone 10 mg tablet RxNorm: 820391 Take 1 Tablet(s) Oral two times a day as needed for anxiety 10/30/2020 01/27/2021 Inactive citalopram 20 mg tablet RxNorm: 754582 1 Tablet(s) Oral QD 09/11/1912/02/2020 Inactive propranolol 40 mg tablet RxNorm: 040765 1 Tablet(s) Oral two ti mes a day 07/16/2020 07/15/2020 Inactive propranolol 40 mg tablet RxNorm: 632420 1 Tablet(s) Oral two ti mes a day 07/16/2020 10/29/2020 Inactive Nurtec ODT 75 mg disintegrating tablet RxNorm: 6773674 1 Tablet(s) Sublingual QD as needed for headache take as directed but no more than 9 in a month. 07/02/2020 No Stop Date Active oxybutynin chloride 5 mg tablet RxNorm: 431652 1 Tablet(s) Oral QD 07/02/2020 01/22/2021 Inactive propranolol 40 mg tablet RxNorm: 458046 1 Tablet(s) Oral every night at bedtime 07/02/2020 07/15/2020 Inactive ProAir HFA 90 mcg/actuation aerosol inhaler RxNorm: 726659 2 Puff(s) Inhalation Q4H as needed 05/28/2020 05/27/2020 Inactive Medrol (Manuel) 4 mg tablets in a dose pack RxNorm: 948893 Tablet(s) Oral Take as prescribed 05/28/2020 05/27/2020 Inactive Zofran 4 mg tablet RxNorm: 843596 1 Tablet(s) Oral Q4H as neede d for nausea 05/28/2020 05/27/2020 Inactive Zofran 4 mg tablet RxNorm: 774720 1 Tablet(s) Oral Q4H as neede d for nausea 05/28/2020 05/28/2020 Inactive Medrol (Manuel) 4 mg tablets in a dose pack RxNorm: 846493 Tablet(s) Oral Take as prescribed 05/28/2020 05/28/2020 Inactive ProAir HFA 90 mcg/actuation aerosol inhaler RxNorm: 908097 2 Puff(s) Inhalation Q4H as needed 05/28/2020 05/28/2020 Inactive Augmentin 875 mg-125 mg tablet RxNorm: 702505 1 Tablet(s) Oral two times a day 05/25/2020 05/27/2020 Inactive citalopram 20 mg tablet RxNorm: 888642 Take 1 tablet by mouth o nce daily 05/22/2020 08/19/2020 Inactive diclofenac ER 100 mg tablet,extended release 24 hr RxNorm: 8 88429 1 Tablet(s) Oral two times a day as needed for headache 05/02/2020 05/01/2020 Inac tive diclofenac ER 100 mg tablet,extended release 24 hr RxNorm: 8 51316 1 Tablet(s) Oral two times a day as needed for headache 05/02/2020 05/02/2020 Inac tive prednisone 20 mg tablet RxNorm: 801874 1 Tablet(s) Oral two sherif es a day 05/01/2020 05/08/2020 Inactive Valtrex 1 gram tablet RxNorm: 133279 1 Tablet(s) Oral three sherif es a day 05/01/2020 05/08/2020 Inactive Lyrica 50 mg capsule RxNorm: 044846 1 Capsule(s) Oral QPM for n erve pain 04/27/2020 04/30/2020 Inactive Lyrica 50 mg capsule RxNorm: 322649 1 Capsule(s) Oral QPM for n erve pain 04/27/2020 04/26/2020 Inactive ketorolac 10 mg tablet RxNorm: 392100 1 Tablet(s) Oral four times a day as needed for pain with food 04/27/2020 04/30/2020 Inactive citalopram 20 mg tablet RxNorm: 043543 1 Tablet(s) Oral QD 03/12/20 20 05/21/2020 Inactive Loryna (28) 3 mg-0.02 mg tablet RxNorm: 1024228 1 Tablet (s) Oral Take as directed 03/12/2020 04/30/2020 Inactive Loryna (28) 3 mg-0.02 mg tablet RxNorm: 8530891 1 Tablet (s) Oral Take as directed 01/09/2020 03/11/2020 Inactive Loryna (28) 3 mg-0.02 mg tablet RxNorm: 2839937 1 Tablet (s) Oral Take as directed 01/09/2020 01/08/2020 Inactive citalopram 20 mg tablet RxNorm: 356265 1 Tablet(s) Oral QD 11/29/19 20 03/11/2020 Inactive drospiren-e.estrad-l.mefol 3 mg-0.02 mg-0.451 mg(24)/0 .451 mg(4)tablet RxNorm: 9068287 1 Tablet(s) Oral QD 11/29/2019 04/30/2020 Inactive norethindrone (contraceptive) oral RxNorm: 7514 oral 02/14/2021 02/14/2021 Inactive Medication Administered No Medication Administered data Immunizations No Immunization data Results No Results data Procedures Procedure Codes Date THER/PROPH/DIAG INJ SC/IM CPT-4: 11362 05/01/2020 KETOROLAC TROMETHAMINE INJ CPT-4: J1885 05/01/2020 THER/PROPH/DIAG INJ SC/IM CPT-4: 87952 05/01/2020 METHYLPREDNISOLONE INJECTION CPT-4: J2930 05/01/2020 ONDANSETRON [...] 97.8 (F) We ight: 161 lbs Code: 78604-7 10/30/2020 Blood Pressure 1: 124/74 Code: 8480-6 BMI: 27.6 Code: 50487-3 Heart Rate 1: 92 bpm Height: 5'4" Code: 8302-2 Respiratory Rate: 16 bpm SpO2: 99% Temperature: 36.4 (C) / 97.5 (F) Weight: 161 lbs Code: 91163-5 09/03/2020 Blood Pressure 1: 124/64 Code: 8480-6 BMI: 28.2 Code: 26680-8 Heart Rate 1: 92 bpm Height: 5'4" Code: 8302-2 Respiratory Rate: 22 bpm SpO2: 96% Temperature: 36.7 (C) / 98.0 (F) Weight: 164 lbs Code: 31631-3 07/24/2020 Blood Pressure 1: 132/76 Code: 8480-6 BMI: 28.7 Code: 55938-5 Heart Rate 1: 90 bpm Height: 5'4" Code: 8302-2 Respiratory Rate: 16 bpm SpO2: 99% Temperature: 36.5 (C) / 97.7 (F) Weight: 167 lbs Code: 58492-7 07/02/2020 Blood Pressure 1: 127/76 Code: 8480-6 Heart Rate 1: 98 bpm Respiratory Rate: 15 bpm SpO2: 98% Temperature: 36.3 (C) / 97.3 (F) We ight: 167 lbs Code: 29427-5 05/25/2020 Blood Pressure 1: 118/76 Code: 8480-6 BMI: 29.2 Code: 82623-3 Heart Rate 1: 92 bpm Height: 5'4" Code: 8302-2 Respiratory Rate: 20 bpm SpO2: 96% Temperature: 36.2 (C) / 97.1 (F) Weight: 170 lbs Code: 99104-1 05/01/2020 Blood Pressure 1: 114/86 Code: 8480-6 Heart Rate 1: 104 bpm Respiratory Rate: 22 bpm SpO2: 99% Temperature: 36.9 (C) / 98.4 (F) 04/27/2020 Blood Pressure 1: 119/64 Code: 8480-6 Heart Rate 1: 95 bpm Respiratory Rate: 16 bpm SpO2: 98% Temperature: 36.4 (C) / 97.5 (F) We ight: 165 lbs Code: 64821-1 11/29/2019 Blood Pressure 1: 104/76 Code: 8480-6 BMI: 26.8 Code: 26637-4 Heart Rate 1: 80 bpm Height: 5'4" Code: 8302-2 Respiratory Rate: 20 bpm SpO2: 98% Temperature: 36.4 (C) / 97.5 (F) Weight: 156 lbs Code: 67512-3 Functional Status No Functional Status data Reason For Visit Reason For Visit Effective Dates Notes otalgia 02/11/2021 ~generic 11/20/2020 Patient is here to d renetta Crespoid19 Vaccination and possible side effects. Patient [...] visit Encounters Encounter Performer Location Codes Date ([id number]) OFFICE/OUTPATIENT VISIT EST Diagnosis: Cephalgia[ICD10: R51.9] Diagnosis: Right ear pain[ICD10: H92.01] Perla [employer] CPT-4: 68789 02/11/2021 ([id number]) OFFICE/OUTPATIENT VISIT EST Diagnosis: Vaccine counseling[ICD10: Z71.89] Perla BALDERAS [facility] [employer] CPT-4: 66689 11/20/2020 ([id number]) OFFICE/OUTPATIENT VISIT EST Diagnosis: Generalized anxiety disorder[ICD10: F41.1] Diagnosis: Depression[ICD10: F32.9] Diagnosis: School physical exam[ICD10: Z02.0] Perla BALDERAS [facility] - [employer] CPT-4: 61469 10/30/2020 ([id number]) OFFICE/OUTPATIENT VISIT EST Diagnosis: Left foot pain[ICD10: M79.672] Perla Bach BrammoMARCIE [facility] - [facility] CPT-4: 50531 09/03/2020 ([id number]) OFFICE/OUTPATIENT VISIT EST Diagnosis: Cephalgia[ICD10: R51.9] Diagnosis: Generalized anxiety disorder[ICD10: F41.1] Perla BALDERAS DO [facility] CPT-4: 82067 07/24/2020 (10124) OFFICE/OUTPATIENT VISIT EST Diagnosis: Migraine aura, persistent, intractable, with status migrainosus[ICD10: G43.511] Diagnosis: Generalized anxiety disorder[ICD10: F41.1] Anusha BALDERAS DO [facility] CPT-4: 60926 07/02/2020 ([id number]) OFFICE/OUTPATIENT VISIT EST Diagnosis: Sinusitis[ICD10: J32.9] Anusha DEL CASTILLO HERCAMOSHOP [facility] CPT-4: 97271 05/25/2020 ([id number]) OFFICE/OUTPATIENT VISIT EST Diagnosis: Cephalgia[ICD10: R51.9] Diagnosis: Right sided numbness[ICD10: R20.0] Diagnosis: Nausea[ICD10: R11.0] Diagnosis: Right sided weakness[ICD10: R53.1] Bruna HEAD ChristianIsreal ROBBY [employer] - [employer] [facility] [employer] CPT-4: 53230 05/01/2020 ([id number]) OFFICE/OUTPATIENT VISIT EST Diagnosis: Cephalgia[ICD10: R51.9] Anusha DEL CASTILLO [facility] - [facility] [employer] CPT-4: 78584 04/27/2020 ([id number]) OFFICE/OUTPATIENT VISIT NEW Diagnosis: Endometriosis[ICD10: N80.9] Diagnosis: PCOS (polycystic ovarian syndrome)[ICD10: E28.2] Diagnosis: Depression[ICD10: F32.9] Diagnosis: Fatigue[ICD10: R53.83] Bruna WALKER ChristianIsreal SHIRA Ojeda [facility] - [employer] [facility] [employer] CPT-4: 53468 11/29/2019 Plan of Care Planned Activity Notes [...] discontinue in the past. Patient states her ob-certified activities director said it was okay. Patient states she [...] 02/11/2021 [facility] [phone] [facility] [facility] 02/11/2021 Patient Education: Patient Medication Summary Completed 02/11/2021 Visit Diagnosis Plan: Vaccine counseling Discussion: D iscussed contraindications, side effects, patient concerns on COVID vaccine- patient does not have any contraindications. Recommended COVID vaccine. Questions answered. Patient and mother voiced understanding. Print-outs given from [facility] website on MRNA vaccines and covid vaccine safety and side effects. ICD-9 : V65.49 ICD-10 : Z71.89 11/20/2020 App[facility]ment: [facility] Bow[facility] [phone] [facility] [facility] 11/20/2020 Patient Education: Patient Medication Summary Completed 11/20/2020 Visit Diagnosis Plan: Generalized anxiety disorder Dis cussion: Continue citalopram. Add buspar. F/U for any concerns- no improvement/worsening. 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 ICD-9 : V70.5 ICD-10 : Z02.0 10/30/2020 Appointment: Fifi Bowersah WPtel: [phone] [facility] US FOLLOW UP 10/30/2020 Patient Education: Patient Medication Summary Completed 10/30/2020 Patient Education: buspirone- [employer] Coupon [id number] https://www.[employer]peech.Thanx/samplemd/resources/getResource/61/[email or web address]-k113-41lr-5l Completed 10/30/2020 Visit Diagnosis Plan: Left foot [...] : 729.5 ICD-10 : M79.672 09/03/2020 Appointment: Fifi Bowersah WPtel: [phone] [facility] ACUTE ILLNESS 09/03/2020 Patient Education: Patient Medication Summary Completed 09/03/2020 Care Plan: X-RAY EXAM OF FOOT LOINC : 26 095-0 Pending 09/03/2020 Appointment: Bruna Balderas WPtel: [phone] [facility] [place] RESCHEDULED 07/30/2020 Visit Diagnosis Plan: Cephalgia [...] aura or not, aura explained. [facility]. Will f/u after appt with neurology. ICD-9 : 784.0 ICD-10 : R51.9 07/24/2020 App[facility]ment: [facility] [phone] [facility] 07/24/2020 Patient Education: Patient Medication Summary Completed 07/24/2020 Appointment: Anusha Chapin [address] [place] [address] RESCHEDULED 07/16/2020 Visit Diagnosis Plan: Migraine aura, [...] ICD-10 : F41.1 07/02/2020 Appointment: Anusha Chapin [address] [place], [place] [id number] 07/02/2020 Patient Education: propranolol- [employer] Coupon [phone] https://www.[employer].Thanx/samplemd/resources/getResource/61/41350kh8-a65l-8x8u-4g Completed 07/02/2020 Visit Diagnosis Plan: Sinusitis Discussion: stop the m ucinex but continue with otc allergy meds. augmentin to cover for bacterial sinus infection but instructed patient to get tested for COVID. instructed her to contact [facility] for testing. patient verbalized understanding. ICD-9 : 473.9 ICD-10 : J32.9 05/25/2020 Appointment: Anusha Chapin [address] [place], [place] [id number] ACUTE ILLNESS 05/25/2020 Visit Diagnosis Plan: Right [...] R51.9 05/01/2020 Appointment: [facility]una Balderas [facility]el[facility] [phone] [facility] [facility] Follow Up 05/01/2020 Patient Education: prednisone- [employer] Coupon [id number] https://www.[employer]ronotes/samplemd/resources/getResource/61/c5gee922-1b17-8r60-eh Completed 05/01/2020 Patient Education: Valtrex- [employer] Coupon [id number] https://www.[employer]/samplemd/resources/getResource/61/sj59d4a6-3sb5-9337-t7 Completed 05/01/2020 Care Plan: Referral Order SNOMED-CT : 30 8908882 Pending 05/01/2020 Visit Diagnosis Plan: Cephalgia Discussion: [...] ICD-10 : R51.9 04/27/2020 [facility]ment[facility] [address] [facility] [facility] 04/27/2020 Patient Education: ketorolac- [employer] Coupon [phone] https://www.[employer]/samplemd/resources/getResource/61/71323418-zr36-06n7-dm Completed 04/27/2020 Visit Diagnosis Plan: Depression Discussion: Stable on citalopram Follow Up: 6 months ICD-9 : 311 ICD-10 : F32.9 11/29/2019 Visit Diagnosis Plan: Fatigue Discussion: Check CBC, T SH, Free T4, CMP, iron/ferritin, insulin levels ICD-9 : 780.79 ICD-10 : R53.83 11/29/2019 Visit Diagnosis Plan: Endometriosis Discussion: Follow s with [facility] ICD-9 : 617.9 ICD-10 : N80.9 11/29/2019 Appointment: Bruna Balderas WPtel[facility] [facility] 11/29/2019 Referral: Jerman Vizcarra WPtel: [facility] [address] [address] [place] Referral Appointment Requested Instructions No Instructions Medical Equipment No Medical Equipment data Health Concerns Section Health Concerns data not found Goals Section Goals data not found Interventions Section Interventions data not found Health Status Evaluations/Outcomes Section Health Status Evaluations/Outcomes data not found Advance Directives No Advance Directive data
--- OUTSIDE RECORDS SUMMARY | 2021-04-11 23:13 | XMS REPORT | CCD ---
Author Author Melinda Balderas D.O. [facility] Organization [facility] BALDERAS [facility] Address [address] [place] [address] Phone Care Team Providers Care Insulation Packer Name Role Phone PP Unavailable CCM Unavailable Summary Purpose Interface Exchange Insurance Providers Payer name Policy type / Coverage type Covered green party ID Effective Begin Date Effective End Date Blue Cross Blue Shield Blue Cross/Blue Shield [id number] 2019 Unknown Family History Family History data not found Social History Social History Element Codes Description Effective Dates Marital status Unknown Single 11/29/2019 Employment Unknown [facility] 11/29/[address]: 351031456 Has never smoked or chewed tobacco 11/29/[address]: 298265 Currently drinks alcohol 11/28 Has the patient [...] congestion ICD-10: R09.81 ICD-9: 478.19 03/06/2021 Active URI, ACUTE ICD-10: J06.9 ICD-9: 465.9 03/06/2021 Active Cephalgia ICD-10: R51.9 ICD-9: 784.0 [...] mg tablet,extended release 24 hr R xNorm: 672932 Take 1 Tablet(s) Oral QD 03/25/2021 06/22/2021 Active Topamax 100 mg tablet RxNorm: 358404 1 Tablet(s) Oral two times a day 03/06/2021 04/04/2021 Active Macrobid 100 mg capsule RxNorm: 064782 Take 1 Capsule(s) Oral Q 12H with food 03/06/2021 03/10/2021 Inactive Pyridium 200 mg tablet RxNorm: 8885682 Take 1 Tablet(s) Oral three times a day after mealsas needed 03/06/2021 03/07/2021 Inactive citalopram 40 mg tablet RxNorm: 955097 1 Tablet(s) Oral QD repl aces 20mg dose 03/01/2021 05/29/2021 Active Topamax 50 mg tablet RxNorm: 802380 1 Tablet(s) Oral two times a da y 03/01/2021 03/01/2021 Inactive oxybutynin chloride ER 10 mg tablet,extended release 24 hr R xNorm: 550821 Take 1 Tablet(s) Oral QD 02/20/2021 02/20/2021 Inactive norethindrone (contraceptive) 0.35 mg tablet RxNorm: 495858 1 T ablet(s) Oral QD 02/14/2021 01/15/2022 Active oxybutynin chloride ER 10 mg tablet,extended release 24 hr R xNorm: 524920 1 Tablet(s) Oral QD 01/23/2021 01/23/2021 Inactive oxybutynin chloride ER 10 mg tablet,extended release 24 hr R xNorm: 194110 1 Tablet(s) Oral QD 01/23/2021 01/23/2021 Inactive citalopram 40 mg tablet RxNorm: 905123 1 Tablet(s) Oral QD repl aces 20mg dose 12/03/2020 12/03/2020 Inactive citalopram 40 mg tablet RxNorm: 585032 1 Tablet(s) Oral QD repl aces 20mg dose 12/03/2020 12/03/2020 Inactive Topamax 50 mg tablet RxNorm: 664885 1 Tablet(s) Oral two times a da y 10/30/2020 03/01/2021 Inactive buspirone 10 mg tablet RxNorm: 697761 Take 1 Tablet(s) Oral two times a day as needed for anxiety 10/30/2020 01/27/2021 Inactive citalopram 20 mg tablet RxNorm: 361007 1 Tablet(s) Oral QD 09/11/1912/02/2020 Inactive propranolol 40 mg tablet RxNorm: 841716 1 Tablet(s) Oral two ti mes a day 07/16/2020 07/15/2020 Inactive propranolol 40 mg tablet RxNorm: 132167 1 Tablet(s) Oral two ti mes a day 07/16/2020 10/29/2020 Inactive oxybutynin chloride 5 mg tablet RxNorm: 166713 1 Tablet(s) Oral QD 07/02/2020 01/22/2021 Inactive Nurtec ODT 75 mg disintegrating tablet RxNorm: 2963251 1 Tablet(s) Sublingual QD as needed for headache take as directed but no more than 9 in a month. 07/02/2020 03/05/2021 Inactive propranolol 40 mg tablet RxNorm: 777185 1 Tablet(s) Oral every night at bedtime 07/02/2020 07/15/2020 Inactive ProAir HFA 90 mcg/actuation aerosol inhaler RxNorm: 724076 2 Puff(s) Inhalation Q4H as needed 05/28/2020 05/27/2020 Inactive Medrol (Manuel) 4 mg tablets in a dose pack RxNorm: 533717 Tablet(s) Oral Take as prescribed 05/28/2020 05/27/2020 Inactive Zofran 4 mg tablet RxNorm: 423285 1 Tablet(s) Oral Q4H as neede d for nausea 05/28/2020 05/27/2020 Inactive Zofran 4 mg tablet RxNorm: 192700 1 Tablet(s) Oral Q4H as neede d for nausea 05/28/2020 05/28/2020 Inactive Medrol (Manuel) 4 mg tablets in a dose pack RxNorm: 235186 Tablet(s) Oral Take as prescribed 05/28/2020 05/28/2020 Inactive ProAir HFA 90 mcg/actuation aerosol inhaler RxNorm: 678306 2 Puff(s) Inhalation Q4H as needed 05/28/2020 05/28/2020 Inactive Augmentin 875 mg-125 mg tablet RxNorm: 765610 1 Tablet(s) Oral two times a day 05/25/2020 05/27/2020 Inactive citalopram 20 mg tablet RxNorm: 041647 Take 1 tablet by mouth o nce daily 05/22/2020 08/19/2020 Inactive diclofenac ER 100 mg tablet,extended release 24 hr RxNorm: 8 11522 1 Tablet(s) Oral two times a day as needed for headache 05/02/2020 05/01/2020 Inac tive diclofenac ER 100 mg tablet,extended release 24 hr RxNorm: 8 83408 1 Tablet(s) Oral two times a day as needed for headache 05/02/2020 05/02/2020 Inac tive prednisone 20 mg tablet RxNorm: 837222 1 Tablet(s) Oral two sherif es a day 05/01/2020 05/08/2020 Inactive Valtrex 1 gram tablet RxNorm: 657527 1 Tablet(s) Oral three sherif es a day 05/01/2020 05/08/2020 Inactive Lyrica 50 mg capsule RxNorm: 159051 1 Capsule(s) Oral QPM for n erve pain 04/27/2020 04/30/2020 Inactive Lyrica 50 mg capsule RxNorm: 168978 1 Capsule(s) Oral QPM for n erve pain 04/27/2020 04/26/2020 Inactive ketorolac 10 mg tablet RxNorm: 394580 1 Tablet(s) Oral four times a day as needed for pain with food 04/27/2020 04/30/2020 Inactive citalopram 20 mg tablet RxNorm: 135107 1 Tablet(s) Oral QD 03/12/2005/21/2020 Inactive Loryna (28) 3 mg-0.02 mg tablet RxNorm: 3625984 1 Tablet (s) Oral Take as directed 03/12/2020 04/30/2020 Inactive Loryna (28) 3 mg-0.02 mg tablet RxNorm: 6330162 1 Tablet (s) Oral Take as directed 01/09/2020 03/11/2020 Inactive Loryna (28) 3 mg-0.02 mg tablet RxNorm: 8747312 1 Tablet (s) Oral Take as directed 01/09/2020 01/08/2020 Inactive citalopram 20 mg tablet RxNorm: 243942 1 Tablet(s) Oral QD 11/29/1903/11/2020 Inactive drospiren-e.estrad-l.mefol 3 mg-0.02 mg-0.451 mg(24)/0 .451 mg(4)tablet RxNorm: 6227684 1 Tablet(s) Oral QD 11/29/2019 04/30/2020 Inactive norethindrone (contraceptive) oral RxNorm: 7514 oral 02/14/2021 02/14/2021 Inactive Medication Administered No Medication Administered data Immunizations No Immunization data Results No Results data Procedures Procedure Codes Date URINALYSIS NONAUTO W/O SCOPE CPT-4: 83767 03/06/2021 URINE CULTURE/ COLONY COUNT CPT-4: 01012 03/06/2021 SARSCOV & INF VIR A&B AG IA CPT-4: 44876 03/06/2021 THER/PROPH/DIAG INJ SC/IM CPT-4: 63031 05/01/2020 KETOROLAC TROMETHAMINE INJ CPT-4: J1885 05/01/2020 THER/PROPH/DIAG INJ SC/IM CPT-4: 94942 05/01/2020 METHYLPREDNISOLONE INJECTION CPT-4: J2930 05/01/2020 ONDANSETRON HCL INJECTION CPT-4: J2405 05/01/2020 Vital Signs Date Vital 03/06/2021 Blood Pressure 1: 119/68 Code: 8480-6 Heart Rate 1: 97 bpm Respiratory Rate: 16 bpm SpO2: 98% Temperature: 36.4 (C) / 97.5 (F) We ight: 158 lbs Code: 31474-9 02/11/2021 Heart Rate 1: 84 bpm Respiratory Rate: 18 bpm SpO2: 99 % Temperature: 36.6 (C) / 97.8 (F) 11/20/2020 Blood Pressure 1: 117/68 Code: 8480-6 Heart Rate 1: 68 bpm Respiratory Rate: 16 bpm SpO2: 99% Temperature: 36.6 (C) / 97.8 (F) We ight: 161 lbs Code: 68418-6 10/30/2020 Blood Pressure 1: 124/74 Code: 8480-6 BMI: 27.6 Code: 43266-8 Heart Rate 1: 92 bpm Height: 5'4" Code: 8302-2 Respiratory Rate: 16 bpm SpO2: 99% Temperature: 36.4 (C) / 97.5 (F) Weight: 161 lbs Code: 22350-1 09/03/2020 Blood Pressure 1: 124/64 Code: 8480-6 BMI: 28.2 Code: 53511-0 Heart Rate 1: 92 bpm Height: 5'4" Code: 8302-2 Respiratory Rate: 22 bpm SpO2: 96% Temperature: 36.7 (C) / 98.0 (F) Weight: 164 lbs Code: 67576-8 07/24/2020 Blood Pressure 1: 132/76 Code: 8480-6 BMI: 28.7 Code: 90947-3 Heart Rate 1: 90 bpm Height: 5'4" Code: 8302-2 Respiratory Rate: 16 bpm SpO2: 99% Temperature: 36.5 (C) / 97.7 (F) Weight: 167 lbs Code: 21121-2 07/02/2020 Blood Pressure 1: 127/76 Code: 8480-6 Heart Rate 1: 98 bpm Respiratory Rate: 15 bpm SpO2: 98% Temperature: 36.3 (C) / 97.3 (F) We ight: 167 lbs Code: 49867-0 05/25/2020 Blood Pressure 1: 118/76 Code: 8480-6 BMI: 29.2 Code: 99796-8 Heart Rate 1: 92 bpm Height: 5'4" Code: 8302-2 Respiratory Rate: 20 bpm SpO2: 96% Temperature: 36.2 (C) / 97.1 (F) Weight: 170 lbs Code: 99446-8 05/01/2020 Blood Pressure 1: 114/86 Code: 8480-6 Heart Rate 1: 104 bpm Respiratory Rate: 22 bpm SpO2: 99% Temperature: 36.9 (C) / 98.4 (F) 04/27/2020 Blood Pressure 1: 119/64 Code: 8480-6 Heart Rate 1: 95 bpm Respiratory Rate: 16 bpm SpO2: 98% Temperature: 36.4 (C) / 97.5 (F) We ight: 165 lbs Code: 77220-1 11/29/2019 Blood Pressure 1: 104/76 Code: 8480-6 BMI: 26.8 Code: 61002-9 Heart Rate 1: 80 bpm Height: 5'4" Code: 8302-2 Respiratory Rate: 20 bpm SpO2: 98% Temperature: 36.4 (C) / 97.5 (F) Weight: 156 lbs Code: 92056-2 Functional Status No Functional Status data Reason [...] visit Encounters Encounter Performer Location Codes Date ([id number]) OFFICE/OUTPATIENT VISIT EST Diagnosis: Acute cystitis with hematuria[ICD10: N30.01] Diagnosis: Nasal congestion[ICD10: R09.81] Diagnosis: URI, ACUTE[ICD10: J06.9] Perla MANNING [employer] CPT-4: 09387 03/06/2021 ([id number]) OFFICE/OUTPATIENT VISIT EST Diagnosis: Cephalgia[ICD10: R51.9] Diagnosis: Right ear pain[ICD10: H92.01] Perla Kirby [employer] CPT-4: 81087 02/11/2021 ([id number]) OFFICE/OUTPATIENT VISIT EST Diagnosis: Vaccine counseling[ICD10: Z71.89] Perla [employer] CPT-4: 12958 11/20/2020 ([id number]) OFFICE/OUTPATIENT VISIT EST Diagnosis: Generalized anxiety disorder[ICD10: F41.1] Diagnosis: Depression[ICD10: F32.9] Diagnosis: School physical exam[ICD10: Z02.0] Perla MENDESPALMIRA SONIDO SIsreal [facility]NDER [facility] CPT-4: 57374 10/30/2020 ([id number]) OFFICE/OUTPATIENT VISIT EST Diagnosis: Left foot pain[ICD10: M79.672] Perla [facility]ENNDER [facility] CPT-4: 54081 09/03/2020 ([id number]) OFFICE/OUTPATIENT VISIT EST Diagnosis: Cephalgia[ICD10: R51.9] Diagnosis: Generalized anxiety disorder[ICD10: F41.1] Perla [facility] CPT-4: 53112 07/24/2020 ([id number]) OFFICE/OUTPATIENT VISIT EST Diagnosis: Migraine aura, persistent, intractable, with status migrainosus[ICD10: G43.511] Diagnosis: Generalized anxiety disorder[ICD10: F41.1] Anusha MENDESLINE Mirta JORGENSENNDER [employer] CPT-4: 47124 07/02/2020 ([id number]) OFFICE/OUTPATIENT VISIT EST Diagnosis: Sinusitis[ICD10: J32.9] Anusha MENDESLINE Mirta JORGENSENND ER [employer] CPT-4: 61495 05/25/2020 ([id number]) OFFICE/OUTPATIENT VISIT EST Diagnosis: Cephalgia[ICD10: R51.9] Diagnosis: Right sided numbness[ICD10: R20.0] Diagnosis: Nausea[ICD10: R11.0] Diagnosis: Right sided weakness[ICD10: R53.1] Bruna HEAD S. JAMEELNDER [employer] CPT-4: 51750 05/01/2020 ([id number]) OFFICE/OUTPATIENT VISIT EST Diagnosis: Cephalgia[ICD10: R51.9] Anusha MENDESLINE Mirta JORGENSENND ER [facility] CPT-4: 00047 04/27/2020 ([id number]) OFFICE/OUTPATIENT VISIT NEW Diagnosis: Endometriosis[ICD10: N80.9] Diagnosis: PCOS (polycystic ovarian syndrome)[ICD10: E28.2] Diagnosis: Depression[ICD10: F32.9] Diagnosis: Fatigue[ICD10: R53.83] Bruna WALKER ChristianIsreal JAMEELYESENIA Ojeda DO [facility] CPT-4: 43589 11/29/2019 Plan of Care Planned Activity Notes [...] ICD-9 : 478.19 ICD-10 : R09.81 03/06/2021 Appointment: Perla Bowers WPtel: [phone] [facility] ACUTE ILLNESS 03/06/2021 Patient Education: Patient Medication Summary Completed [...] discontinue in the past. 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 Patient states she [...] 02/11/2021 Appointment: Perla Bowers WPtel: [phone] ACUTE ILLNESS 02/11/2021 Patient Education: Patient Medication Summary Completed 02/11/2021 Visit Diagnosis Plan: Vaccine counseling Discussion: D iscussed contraindications, side effects, patient concerns on COVID vaccine- patient does not have any contraindications. Recommended COVID vaccine. Questions answered. Patient and mother voiced understanding. Print-outs given from [facility] website on MRNA vaccines and covid vaccine safety and side effects. ICD-9 : V65.49 ICD-10 : Z71.89 11/20/2020 Appointment: Perla Bowers WPtel: [phone] ACUTE ILLNESS 11/20/2020 Patient Education: Patient [...] 10/30/2020 Appointment: Perla Bowers WPtel: [phone] FOLLOW UP 10/30/2020 Patient Education: Patient Medication Summary Completed 10/30/2020 Patient Education: buspirone- [employer] Coupon [id number] https://www.[employer].[facility]/samplemd/resources/getResource/61/k52v5n3b-l217-63jr-3q Completed 10/30/2020 Visit Diagnosis Plan: Left foot [...] 09/03/2020 Appointment: Perla Bowers WPtel: [phone] [id number] ACUTE ILLNESS 09/03/2020 Patient Education: Patient Medication Summary Completed 09/03/2020 Care Plan: X-RAY EXAM OF FOOT LOINC : 095-0 Pending 09/03/2020 Appointment: Bruna Balderas WPtel: [phone] [address] US RESCHEDULED 07/30/2020 Visit Diagnosis Plan: Cephalgia [...] aura or not, aura explained. Questions answered. Nurte sample given since it has been working well for her. Will f/u after appt with neurology. ICD-9 : 784.0 ICD-10 : R51.9 07/24/2020 Appointment: Perla Bowers WPtel: [phone] [facility] US FOLLOW UP 07/24/2020 Patient Education: Patient Medication Summary Completed 07/24/2020 Appointment: Anusha Chapin [address] [address] US RESCHEDULED 07/16/2020 Visit Diagnosis Plan: Migraine aura, [...] ICD-10 : F41.1 07/02/2020 Appointment: Anusha Chapin [address] [place] [address] ACUTE ILLNESS 07/02/2020 Patient Education: propranolol- Opt[employer] Coupon [phone] https://www.[employer].[facility]/samplemd/resources/getResource/61/10464ht9-r50u-3n4i-4e Completed 07/02/2020 Visit Diagnosis Plan: Sinusitis Discussion: stop the m ucinex but continue with otc allergy meds. augmentin to cover for bacterial sinus infection but instructed patient to get tested for COVID. instructed her to contact [facility] for testing. patient verbalized understanding. ICD-9 : 473.9 ICD-10 : J32.9 05/25/2020 Appointment: Anusha Chapin [address] [place], [place] [id number] ACUTE ILLNESS 05/25/2020 Visit Diagnosis Plan: Right [...] R51.9 05/01/2020 Appointment: Bruna Balderas WPtel: [phone] [facility] Hospital Follow Up 05/01/2020 Patient Education: prednisone- OptimizeRX Coupon [phone] https://www.[employer]/resources/getResource/61/q4xep396-4c15-6e40-kp Completed 05/01/2020 Patient Education: Valtrex- [employer] Coupon [id number] https://www.[employer]/resources/getResource/61/ir07k3y0-2rh7-2299-v5 Completed 05/01/2020 Care Plan: Referral Order SNOMED-CT : 30 [id number] Pending 05/01/2020 Visit Diagnosis Plan: Cephalgia Discussion: [...] ICD-10 : R51.9 04/27/2020 Appointment: Anusha Chapin [address] [place], [place] [id number] ACUTE ILLNESS 04/27/2020 Patient Education: ketorolac- [employer] Coupon [phone] https://www.[employer]/resources/getResource/61/55899301-fe80-78x6-ax Completed 04/27/2020 Visit Diagnosis Plan: Depression Discussion: Stable on citalopram Follow Up: 6 months ICD-9 : 311 ICD-10 : F32.9 11/29/2019 Visit Diagnosis Plan: Fatigue Discussion: Check CBC, T SH, Free T4, CMP, iron/ferritin, insulin levels ICD-9 : 780.79 ICD-10 : R53.83 11/29/2019 Visit Diagnosis Plan: Endometriosis Discussion: Follow s with ASSORTER LAUNDRY ICD-9 : 617.9 ICD-10 : N80.9 11/29/2019 Appointment: Bruna Balderas WPtel: [phone] [facility] NEW PATIENT 11/29/2019 Referral: Jerman Vizcarra WPtel: [facility] [address] Referral Appointment Requested Instructions Comment . Supportive [...]
--- OUTSIDE RECORDS SUMMARY | 2021-04-11 23:13 | XMS REPORT | CCD ---
Author Author Melinda Balderas D.O. [facility] Organization AARON BALDERAS DO [facility] Address [address] [place] [address] Phone Care Team Providers Care Glove Turner And Former Name Role Phone PP Unavailable CCM Unavailable Summary Purpose Interface Exchange Insurance Providers Payer name Policy type / Coverage type Covered libertarian ID Effective Begin Date Effective End Date Blue Cross Blue Shield Blue Cross/Blue Shield [id number] 2019 Unknown Family History Family History data not found Social History Social History Element Codes Description Effective Dates Marital status Unknown Single 11/29/2019 Employment Unknown [employer] 11/29/[address]: 891182198 Has never smoked or chewed tobacco 11/29/[address]: 187114 Currently drinks alcohol 11/28 Has the patient [...] mg tablet,extended release 24 hr R xNorm: 648018 1 Tablet(s) Oral QD 01/23/2021 02/21/2021 Active oxybutynin chloride ER 10 mg tablet,extended release 24 hr R xNorm: 584129 1 Tablet(s) Oral QD 01/23/2021 01/23/2021 Inactive citalopram 40 mg tablet RxNorm: 611170 1 Tablet(s) Oral QD repl aces 20mg dose 12/03/2020 03/02/2021 Active citalopram 40 mg tablet RxNorm: 499566 1 Tablet(s) Oral QD repl aces 20mg dose 12/03/2020 12/03/2020 Inactive Topamax 50 mg tablet RxNorm: 760294 1 Tablet(s) Oral two times a da y 10/30/2020 No Stop Date Active buspirone 10 mg tablet RxNorm: 801469 Take 1 Tablet(s) Oral two times a day as needed for anxiety 10/30/2020 01/27/2021 Inactive citalopram 20 mg tablet RxNorm: 602041 1 Tablet(s) Oral QD 09/11/1912/02/2020 Inactive propranolol 40 mg tablet RxNorm: 244019 1 Tablet(s) Oral two ti mes a day 07/16/2020 07/15/2020 Inactive propranolol 40 mg tablet RxNorm: 329825 1 Tablet(s) Oral two ti mes a day 07/16/2020 10/29/2020 Inactive Nurtec ODT 75 mg disintegrating tablet RxNorm: 7429153 1 Tablet(s) Sublingual QD as needed for headache take as directed but no more than 9 in a month. 07/02/2020 No Stop Date Active oxybutynin chloride 5 mg tablet RxNorm: 151914 1 Tablet(s) Oral QD 07/02/2020 01/22/2021 Inactive propranolol 40 mg tablet RxNorm: 923872 1 Tablet(s) Oral every night at bedtime 07/02/2020 07/15/2020 Inactive ProAir HFA 90 mcg/actuation aerosol inhaler RxNorm: 568016 2 Puff(s) Inhalation Q4H as needed 05/28/2020 05/27/2020 Inactive Medrol (Manuel) 4 mg tablets in a dose pack RxNorm: 340136 Tablet(s) Oral Take as prescribed 05/28/2020 05/27/2020 Inactive Zofran 4 mg tablet RxNorm: 955811 1 Tablet(s) Oral Q4H as neede d for nausea 05/28/2020 05/27/2020 Inactive Zofran 4 mg tablet RxNorm: 468291 1 Tablet(s) Oral Q4H as neede d for nausea 05/28/2020 05/28/2020 Inactive Medrol (Manuel) 4 mg tablets in a dose pack RxNorm: 464892 Tablet(s) Oral Take as prescribed 05/28/2020 05/28/2020 Inactive ProAir HFA 90 mcg/actuation aerosol inhaler RxNorm: 786257 2 Puff(s) Inhalation Q4H as needed 05/28/2020 05/28/2020 Inactive Augmentin 875 mg-125 mg tablet RxNorm: 740747 1 Tablet(s) Oral two times a day 05/25/2020 05/27/2020 Inactive citalopram 20 mg tablet RxNorm: 519559 Take 1 tablet by mouth o nce daily 05/22/2020 08/19/2020 Inactive diclofenac ER 100 mg tablet,extended release 24 hr RxNorm: 8 45248 1 Tablet(s) Oral two times a day as needed for headache 05/02/2020 05/01/2020 Inac tive diclofenac ER 100 mg tablet,extended release 24 hr RxNorm: 8 02356 1 Tablet(s) Oral two times a day as needed for headache 05/02/2020 05/02/2020 Inac tive prednisone 20 mg tablet RxNorm: 314279 1 Tablet(s) Oral two sherif es a day 05/01/2020 05/08/2020 Inactive Valtrex 1 gram tablet RxNorm: 349395 1 Tablet(s) Oral three sherif es a day 05/01/2020 05/08/2020 Inactive Lyrica 50 mg capsule RxNorm: 383417 1 Capsule(s) Oral QPM for n erve pain 04/27/2020 04/30/2020 Inactive Lyrica 50 mg capsule RxNorm: 974671 1 Capsule(s) Oral QPM for n erve pain 04/27/2020 04/26/2020 Inactive ketorolac 10 mg tablet RxNorm: 808458 1 Tablet(s) Oral four times a day as needed for pain with food 04/27/2020 04/30/2020 Inactive citalopram 20 mg tablet RxNorm: 073870 1 Tablet(s) Oral QD 03/12/2005/21/2020 Inactive Loryna (28) 3 mg-0.02 mg tablet RxNorm: 2687571 1 Tablet (s) Oral Take as directed 03/12/2020 04/30/2020 Inactive Loryna (28) 3 mg-0.02 mg tablet RxNorm: 0101579 1 Tablet (s) Oral Take as directed 01/09/2020 03/11/2020 Inactive Loryna (28) 3 mg-0.02 mg tablet RxNorm: 1263718 1 Tablet (s) Oral Take as directed 01/09/2020 01/08/2020 Inactive citalopram 20 mg tablet RxNorm: 967913 1 Tablet(s) Oral QD 11/29/19 20 03/11/2020 Inactive drospiren-e.estrad-l.mefol 3 mg-0.02 mg-0.451 mg(24)/0 .451 mg(4)tablet RxNorm: 0396645 1 Tablet(s) Oral QD 11/29/2019 04/30/2020 Inactive Medication Administered No Medication Administered data Immunizations No Immunization data Results No Results data Procedures Procedure Codes Date THER/PROPH/DIAG INJ SC/IM CPT-4: 96472 05/01/2020 KETOROLAC TROMETHAMINE INJ CPT-4: J1885 05/01/2020 THER/PROPH/DIAG INJ SC/IM CPT-4: 02766 05/01/2020 METHYLPREDNISOLONE INJECTION CPT-4: J2930 05/01/2020 ONDANSETRON [...] 97.8 (F) We ight: 161 lbs Code: 70995-9 10/30/2020 Blood Pressure 1: 124/74 Code: 8480-6 BMI: 27.6 Code: 81675-5 Heart Rate 1: 92 bpm Height: 5'4" Code: 8302-2 Respiratory Rate: 16 bpm SpO2: 99% Temperature: 36.4 (C) / 97.5 (F) Weight: 161 lbs Code: 33328-1 09/03/2020 Blood Pressure 1: 124/64 Code: 8480-6 BMI: 28.2 Code: 99858-3 Heart Rate 1: 92 bpm Height: 5'4" Code: 8302-2 Respiratory Rate: 22 bpm SpO2: 96% Temperature: 36.7 (C) / 98.0 (F) Weight: 164 lbs Code: 47923-1 07/24/2020 Blood Pressure 1: 132/76 Code: 8480-6 BMI: 28.7 Code: 03419-1 Heart Rate 1: 90 bpm Height: 5'4" Code: 8302-2 Respiratory Rate: 16 bpm SpO2: 99% Temperature: 36.5 (C) / 97.7 (F) Weight: 167 lbs Code: 38190-1 07/02/2020 Blood Pressure 1: 127/76 Code: 8480-6 Heart Rate 1: 98 bpm Respiratory Rate: 15 bpm SpO2: 98% Temperature: 36.3 (C) / 97.3 (F) We ight: 167 lbs Code: 85909-5 05/25/2020 Blood Pressure 1: 118/76 Code: 8480-6 BMI: 29.2 Code: 41479-7 Heart Rate 1: 92 bpm Height: 5'4" Code: 8302-2 Respiratory Rate: 20 bpm SpO2: 96% Temperature: 36.2 (C) / 97.1 (F) Weight: 170 lbs Code: 50788-6 05/01/2020 Blood Pressure 1: 114/86 Code: 8480-6 Heart Rate 1: 104 bpm Respiratory Rate: 22 bpm SpO2: 99% Temperature: 36.9 (C) / 98.4 (F) 04/27/2020 Blood Pressure 1: 119/64 Code: 8480-6 Heart Rate 1: 95 bpm Respiratory Rate: 16 bpm SpO2: 98% Temperature: 36.4 (C) / 97.5 (F) We ight: 165 lbs Code: 20975-4 11/29/2019 Blood Pressure 1: 104/76 Code: 8480-6 BMI: 26.8 Code: 72178-1 Heart Rate 1: 80 bpm Height: 5'4" Code: 8302-2 Respiratory Rate: 20 bpm SpO2: 98% Temperature: 36.4 (C) / 97.5 (F) Weight: 156 lbs Code: 97570-7 Functional Status No Functional Status data Reason [...] visit Encounters Encounter Performer Location Codes Date ([id number]) OFFICE/OUTPATIENT VISIT EST Diagnosis: Cephalgia[ICD10: R51.9] Diagnosis: Right ear pain[ICD10: H92.01] Perla WALKER [employer] CPT-4: 54218 02/11/2021 ([id number]) OFFICE/OUTPATIENT VISIT EST Diagnosis: Vaccine counseling[ICD10: Z71.89] Perla Berkowitz [employer] CPT-4: 81210 11/20/2020 ([id number]) OFFICE/OUTPATIENT VISIT EST Diagnosis: Generalized anxiety disorder[ICD10: F41.1] Diagnosis: Depression[ICD10: F32.9] Diagnosis: School physical exam[ICD10: Z02.0] Perla HEAD [employer] CPT-4: 20241 10/30/2020 ([id number]) OFFICE/OUTPATIENT VISIT EST Diagnosis: Left foot pain[ICD10: M79.672] Perla WALKER [place] [employer] CPT-4: 95185 09/03/2020 (12558) OFFICE/OUTPATIENT VISIT EST Diagnosis: Cephalgia[ICD10: R51.9] Diagnosis: Generalized anxiety disorder[ICD10: F41.1] Perla WALKER [place] [employer] CPT-4: 39331 07/24/2020 (17000) OFFICE/OUTPATIENT VISIT EST Diagnosis: Migraine aura, persistent, intractable, with status migrainosus[ICD10: G43.511] Diagnosis: Generalized anxiety disorder[ICD10: F41.1] Anusha BALDERAS DO [employer] CPT-4: 34682 07/02/2020 ([id number]) OFFICE/OUTPATIENT VISIT EST Diagnosis: Sinusitis[ICD10: J32.9] Anusha DLE CASTILLO DO [facility] CPT-4: 53406 05/25/2020 (58130) OFFICE/OUTPATIENT VISIT EST Diagnosis: Cephalgia[ICD10: R51.9] Diagnosis: Right sided numbness[ICD10: R20.0] Diagnosis: Nausea[ICD10: R11.0] Diagnosis: Right sided weakness[ICD10: R53.1] Aaron LUJAN SONIDO BALDERAS [employer] CPT-4: 23542 05/01/2020 ([id number]) OFFICE/OUTPATIENT VISIT EST Diagnosis: Cephalgia[ICD10: R51.9] Anusha DEL CASTILLO [employer] CPT-4: 10086 04/27/2020 (74417) OFFICE/OUTPATIENT VISIT NEW Diagnosis: Endometriosis[ICD10: N80.9] Diagnosis: PCOS (polycystic ovarian syndrome)[ICD10: E28.2] Diagnosis: Depression[ICD10: F32.9] Diagnosis: Fatigue[ICD10: R53.83] Aaron WALKER [employer] SHIRA Oj[employer] CPT-4: 61214 11/29/2019 Plan of Care Planned Activity Notes [...] discontinue in the past. Patient states her ob-net developer said it was okay. Patient states she [...] 02/11/2021 Appointment: Perla Bowers WPtel: [phone] ACUTE ILLNESS 02/11/2021 Patient Education: Patient Medication Summary Completed 02/11/2021 Visit Diagnosis Plan: Vaccine counseling Discussion: D iscussed contraindications, side effects, patient concerns on COVID vaccine- patient does not have any contraindications. Recommended COVID vaccine. Questions answered. Patient and mother voiced understanding. Print-outs given from [facility] website on MRNA vaccines and covid vaccine safety and side effects. ICD-9 : V65.49 ICD-10 : Z71.89 11/20/2020 Appointment: Perla Bowers WPtel: [phone] ACUTE ILLNESS 11/20/2020 Patient Education: Patient [...] 10/30/2020 Appointment: Perla Bowers WPtel: [phone] [place] [id number] FOLLOW UP 10/30/2020 Patient Education: Patient Medication Summary Completed 10/30/2020 Patient Education: buspirone- [employer] Coupon [phone] https://www.[email or web address].com/samplemd/resources/getResource/61/t42n7b8r-o338-15xx-3p Completed 10/30/2020 Visit Diagnosis Plan: Left foot [...] 09/03/2020 Appointment: Perla Bowers WPtel: [phone] [facility] ACUTE ILLNESS 09/03/2020 Patient Education: Patient Medication Summary Completed 09/03/2020 Care Plan: X-RAY EXAM OF FOOT LOINC : 26 095-0 Pending 09/03/2020 Appointment: Aaron Balderas WPtel: [phone] [facility] RESCHEDULED 07/30/2020 Visit Diagnosis Plan: Cephalgia Recommendations: [...] aura or not, aura explained. Questions answered. [facility] since it has been working well for her. Will f/u after appt with neurology. ICD-9 : 784.0 ICD-10 : R51.9 07/24/2020 Appointment: Perla Bowers WPtel: [phone] [facility] FOLLOW UP 07/24/2020 Patient Education: Patient Medication Summary Completed 07/24/2020 Appointment: Anusha Chapin [address] [place], [place] [id number] RESCHEDULED 07/16/2020 Visit Diagnosis Plan: Migraine aura, [...] ICD-10 : F41.1 07/02/2020 Appointment: Anusha Chapin [address] [place] [address] ACUTE ILLNESS 07/02/2020 Patient Education: propranolol- [employer] Coupon [phone] https://www.[employer].com/samplemd/resources/getResource/61/79513iy4-t27l-9q2y-5x Completed 07/02/2020 Visit Diagnosis Plan: Sinusitis Discussion: stop the m ucinex but continue with otc allergy meds. augmentin to cover for bacterial sinus infection but instructed patient to get tested for COVID. instructed her to contact [facility] for testing. patient verbalized understanding. ICD-9 : 473.9 ICD-10 : J32.9 05/25/2020 Appointment: Anusha Chapin [address] [place], [place] [address] ACUTE ILLNESS 05/25/2020 Visit Diagnosis Plan: Right [...] R51.9 05/01/2020 Appointment: Aaron Balderas WPtel: [phone] [facility] [place] [address] Follow Up 05/01/2020 Patient Education: prednisone- [employer] Coupon [phone] https://www.[employer]/Moreix/resources/getResource/61/x3mhf987-4r33-5y78-ew Completed 05/01/2020 Patient Education: Valtrex- [employer] Coupon [id number] [id number] https://www.[employer]/resources/getResource/61/al68c4b2-8vn5-0028-f5 Completed 05/01/2020 Care Plan: Referral Order SNOMED-CT : [id number] Pending 05/01/2020 Visit Diagnosis Plan: Cephalgia Discussion: [...] ICD-10 : R51.9 04/27/2020 Appointment: Anusha Chapin [address] [place] [id number] ACUTE ILLNESS 04/27/2020 Patient Education: ketorolac- [employer] Coupon [phone] https://www.[employer]/resources/getResource/61/78327163-hs87-05z2-lf Completed 04/27/2020 Visit Diagnosis Plan: Depression Discussion: Stable on citalopram Follow Up: 6 months ICD-9 : 311 ICD-10 : F32.9 11/29/2019 Visit Diagnosis Plan: Fatigue Discussion: Check CBC, T SH, Free T4, CMP, iron/ferritin, insulin levels ICD-9 : 780.79 ICD-10 : R53.83 11/29/2019 Visit Diagnosis Plan: Endometriosis Discussion: Follow s with VIDEO OPERATOR ICD-9 : 617.9 ICD-10 : N80.9 11/29/2019 Appointment: Aaron Balderas WPtel: [facility] NEW PATIENT 11/29/2019 Referral: Jerman Vizcarra WPtel: [facility] [address] [place] [address] Referral Appointment Requested Instructions No Instructions Medical Equipment No Medical Equipment data Health Concerns Section Health Concerns data not found Goals Section Goals data not found Interventions Section Interventions data not found Health Status Evaluations/Outcomes Section Health Status Evaluations/Outcomes data not found Advance Directives No Advance Directive data
--- OUTSIDE RECORDS SUMMARY | 2021-04-11 23:13 | XMS REPORT | CCD ---
Author Author Melinda Balderas D.O. [facility] Organization [facility] Address [address] [place] [address] Phone Care Team Providers Care Shotblaster Name Role Phone PP Unavailable CCM Unavailable Summary Purpose Interface Exchange Insurance Providers Payer name Policy type / Coverage type Covered constitution party ID Effective Begin Date Effective End Date Blue Cross Blue Shield Blue Cross/Blue Shield [id number] 2019 Unknown Family History Family History data not found Social History Social History Element Codes Description Effective Dates Marital status Unknown Single 11/29/2019 Employment Unknown [facility] 11/29/[address]: 587784687 Has never smoked or chewed tobacco 11/29/[address]: 276147 Currently drinks alcohol 11/28 Has the patient [...] Fill Instructions Macrobid 100 mg capsule RxNorm: 283402 Take 1 Capsule(s) Oral Q 12H with food 03/06/2021 03/10/2021 Active Topamax 100 mg tablet RxNorm: 735723 1 Tablet(s) Oral two times a day 03/06/2021 04/04/2021 Active Pyridium 200 mg tablet RxNorm: 7952926 Take 1 Tablet(s) Oral three times a day after mealsas needed 03/06/2021 03/07/2021 Active citalopram 40 mg tablet RxNorm: 978059 1 Tablet(s) Oral QD repl aces 20mg dose 03/01/2021 05/29/2021 Active Topamax 50 mg tablet RxNorm: 109881 1 Tablet(s) Oral two times a da y 03/01/2021 03/01/2021 Inactive oxybutynin chloride ER 10 mg tablet,extended release 24 hr R xNorm: 143842 Take 1 Tablet(s) Oral QD 02/20/2021 05/20/2021 Active norethindrone (contraceptive) 0.35 mg tablet RxNorm: 736650 1 T ablet(s) Oral QD 02/14/2021 01/15/2022 Active oxybutynin chloride ER 10 mg tablet,extended release 24 hr R xNorm: 603143 1 Tablet(s) Oral QD 01/23/2021 01/23/2021 Inactive oxybutynin chloride ER 10 mg tablet,extended release 24 hr R xNorm: 041343 1 Tablet(s) Oral QD 01/23/2021 01/23/2021 Inactive citalopram 40 mg tablet RxNorm: 119044 1 Tablet(s) Oral QD repl aces 20mg dose 12/03/2020 12/03/2020 Inactive citalopram 40 mg tablet RxNorm: 265046 1 Tablet(s) Oral QD repl aces 20mg dose 12/03/2020 12/03/2020 Inactive Topamax 50 mg tablet RxNorm: 901237 1 Tablet(s) Oral two times a da y 10/30/2020 03/01/2021 Inactive buspirone 10 mg tablet RxNorm: 945088 Take 1 Tablet(s) Oral two times a day as needed for anxiety 10/30/2020 01/27/2021 Inactive citalopram 20 mg tablet RxNorm: 046578 1 Tablet(s) Oral QD 09/11/1912/02/2020 Inactive propranolol 40 mg tablet RxNorm: 697468 1 Tablet(s) Oral two ti mes a day 07/16/2020 07/15/2020 Inactive propranolol 40 mg tablet RxNorm: 637610 1 Tablet(s) Oral two ti mes a day 07/16/2020 10/29/2020 Inactive oxybutynin chloride 5 mg tablet RxNorm: 900188 1 Tablet(s) Oral QD 07/02/2020 01/22/2021 Inactive Nurtec ODT 75 mg disintegrating tablet RxNorm: 5270938 1 Tablet(s) Sublingual QD as needed for headache take as directed but no more than 9 in a month. 07/02/2020 03/05/2021 Inactive propranolol 40 mg tablet RxNorm: 184154 1 Tablet(s) Oral every night at bedtime 07/02/2020 07/15/2020 Inactive ProAir HFA 90 mcg/actuation aerosol inhaler RxNorm: 252309 2 Puff(s) Inhalation Q4H as needed 05/28/2020 05/27/2020 Inactive Medrol (Manuel) 4 mg tablets in a dose pack RxNorm: 246902 Tablet(s) Oral Take as prescribed 05/28/2020 05/27/2020 Inactive Zofran 4 mg tablet RxNorm: 002966 1 Tablet(s) Oral Q4H as neede d for nausea 05/28/2020 05/27/2020 Inactive Zofran 4 mg tablet RxNorm: 837081 1 Tablet(s) Oral Q4H as neede d for nausea 05/28/2020 05/28/2020 Inactive Medrol (Manuel) 4 mg tablets in a dose pack RxNorm: 285563 Tablet(s) Oral Take as prescribed 05/28/2020 05/28/2020 Inactive ProAir HFA 90 mcg/actuation aerosol inhaler RxNorm: 445419 2 Puff(s) Inhalation Q4H as needed 05/28/2020 05/28/2020 Inactive Augmentin 875 mg-125 mg tablet RxNorm: 670649 1 Tablet(s) Oral two times a day 05/25/2020 05/27/2020 Inactive citalopram 20 mg tablet RxNorm: 487606 Take 1 tablet by mouth o nce daily 05/22/2020 08/19/2020 Inactive diclofenac ER 100 mg tablet,extended release 24 hr RxNorm: 8 00022 1 Tablet(s) Oral two times a day as needed for headache 05/02/2020 05/01/2020 Inac tive diclofenac ER 100 mg tablet,extended release 24 hr RxNorm: 8 47491 1 Tablet(s) Oral two times a day as needed for headache 05/02/2020 05/02/2020 Inac tive prednisone 20 mg tablet RxNorm: 224728 1 Tablet(s) Oral two sherif es a day 05/01/2020 05/08/2020 Inactive Valtrex 1 gram tablet RxNorm: 093026 1 Tablet(s) Oral three sherif es a day 05/01/2020 05/08/2020 Inactive Lyrica 50 mg capsule RxNorm: 659484 1 Capsule(s) Oral QPM for n erve pain 04/27/2020 04/30/2020 Inactive Lyrica 50 mg capsule RxNorm: 468206 1 Capsule(s) Oral QPM for n erve pain 04/27/2020 04/26/2020 Inactive ketorolac 10 mg tablet RxNorm: 354857 1 Tablet(s) Oral four times a day as needed for pain with food 04/27/2020 04/30/2020 Inactive citalopram 20 mg tablet RxNorm: 502411 1 Tablet(s) Oral QD 03/12/2005/21/2020 Inactive Loryna (28) 3 mg-0.02 mg tablet RxNorm: 4235255 1 Tablet (s) Oral Take as directed 03/12/2020 04/30/2020 Inactive Loryna (28) 3 mg-0.02 mg tablet RxNorm: 8147607 1 Tablet (s) Oral Take as directed 01/09/2020 03/11/2020 Inactive Loryna (28) 3 mg-0.02 mg tablet RxNorm: 7584835 1 Tablet (s) Oral Take as directed 01/09/2020 01/08/2020 Inactive citalopram 20 mg tablet RxNorm: 985903 1 Tablet(s) Oral QD 11/29/1903/11/2020 Inactive drospiren-e.estrad-l.mefol 3 mg-0.02 mg-0.451 mg(24)/0 .451 mg(4)tablet RxNorm: 8171949 1 Tablet(s) Oral QD 11/29/2019 04/30/2020 Inactive norethindrone (contraceptive) oral RxNorm: 7514 oral 02/14/2021 02/14/2021 Inactive Medication Administered No Medication Administered data Immunizations No Immunization data Results No Results data Procedures Procedure Codes Date URINALYSIS NONAUTO W/O SCOPE CPT-4: 33160 03/06/2021 URINE CULTURE/ COLONY COUNT CPT-4: 15791 03/06/2021 SARSCOV & INF VIR A&B AG IA CPT-4: 40775 03/06/2021 THER/PROPH/DIAG INJ SC/IM CPT-4: 57027 05/01/2020 KETOROLAC TROMETHAMINE INJ CPT-4: J1885 05/01/2020 THER/PROPH/DIAG INJ SC/IM CPT-4: 88185 05/01/2020 METHYLPREDNISOLONE INJECTION CPT-4: J2930 05/01/2020 ONDANSETRON HCL INJECTION CPT-4: J2405 05/01/2020 Vital Signs Date Vital 03/06/2021 Blood Pressure 1: 119/68 Code: 8480-6 Heart Rate 1: 97 bpm Respiratory Rate: 16 bpm SpO2: 98% Temperature: 36.4 (C) / 97.5 (F) We ight: 158 lbs Code: 80291-0 02/11/2021 Heart Rate 1: 84 bpm Respiratory Rate: 18 bpm SpO2: 99 % Temperature: 36.6 (C) / 97.8 (F) 11/20/2020 Blood Pressure 1: 117/68 Code: 8480-6 Heart Rate 1: 68 bpm Respiratory Rate: 16 bpm SpO2: 99% Temperature: 36.6 (C) / 97.8 (F) We ight: 161 lbs Code: 99070-6 10/30/2020 Blood Pressure 1: 124/74 Code: 8480-6 BMI: 27.6 Code: 95007-3 Heart Rate 1: 92 bpm Height: 5'4" Code: 8302-2 Respiratory Rate: 16 bpm SpO2: 99% Temperature: 36.4 (C) / 97.5 (F) Weight: 161 lbs Code: 11319-4 09/03/2020 Blood Pressure 1: 124/64 Code: 8480-6 BMI: 28.2 Code: 73236-1 Heart Rate 1: 92 bpm Height: 5'4" Code: 8302-2 Respiratory Rate: 22 bpm SpO2: 96% Temperature: 36.7 (C) / 98.0 (F) Weight: 164 lbs Code: 04941-0 07/24/2020 Blood Pressure 1: 132/76 Code: 8480-6 BMI: 28.7 Code: 06355-7 Heart Rate 1: 90 bpm Height: 5'4" Code: 8302-2 Respiratory Rate: 16 bpm SpO2: 99% Temperature: 36.5 (C) / 97.7 (F) Weight: 167 lbs Code: 02494-2 07/02/2020 Blood Pressure 1: 127/76 Code: 8480-6 Heart Rate 1: 98 bpm Respiratory Rate: 15 bpm SpO2: 98% Temperature: 36.3 (C) / 97.3 (F) We ight: 167 lbs Code: 29868-1 05/25/2020 Blood Pressure 1: 118/76 Code: 8480-6 BMI: 29.2 Code: 98431-0 Heart Rate 1: 92 bpm Height: 5'4" Code: 8302-2 Respiratory Rate: 20 bpm SpO2: 96% Temperature: 36.2 (C) / 97.1 (F) Weight: 170 lbs Code: 93288-4 05/01/2020 Blood Pressure 1: 114/86 Code: 8480-6 Heart Rate 1: 104 bpm Respiratory Rate: 22 bpm SpO2: 99% Temperature: 36.9 (C) / 98.4 (F) 04/27/2020 Blood Pressure 1: 119/64 Code: 8480-6 Heart Rate 1: 95 bpm Respiratory Rate: 16 bpm SpO2: 98% Temperature: 36.4 (C) / 97.5 (F) We ight: 165 lbs Code: 53319-3 11/29/2019 Blood Pressure 1: 104/76 Code: 8480-6 BMI: 26.8 Code: 14908-8 Heart Rate 1: 80 bpm Height: 5'4" Code: 8302-2 Respiratory Rate: 20 bpm SpO2: 98% Temperature: 36.4 (C) / 97.5 (F) Weight: 156 lbs Code: 80175-9 Functional Status No Functional Status data Reason For Visit Reason For Visit Effective Dates Notes painful urination 03/06/2021 otalgia 02/11/2021 ~generic 11/20/2020 Patient is here to d royeruss Covid19 Vaccination and possible side effects. Patient [...] Codes Date () OFFICE/OUTPATIENT VISIT EST Diagnosis: Acute cystitis with hematuria[ICD10: N30.01] Diagnosis: Nasal congestion[ICD10: R09.81] Diagnosis: URI, ACUTE[ICD10: J06.9] Perla Kirby GIOVANNI [employer] CPT-4: 66755 03/06/2021 ([id number]) OFFICE/OUTPATIENT VISIT EST Diagnosis: Cephalgia[ICD10: R51.9] Diagnosis: Right ear pain[ICD10: H92.01] Perla WALKER Front [employer] CPT-4: 29038 02/11/2021 ([id number]) OFFICE/OUTPATIENT VISIT EST Diagnosis: Vaccine counseling[ICD10: Z71.89] Perla Berkowitz [employer] CPT-4: 96009 11/20/2020 ([id number]) OFFICE/OUTPATIENT VISIT EST Diagnosis: Generalized anxiety disorder[ICD10: F41.1] Diagnosis: Depression[ICD10: F32.9] Diagnosis: School physical exam[ICD10: Z02.0] Perla HEAD [employer] CPT-4: 44519 10/30/2020 ([id number]) OFFICE/OUTPATIENT VISIT EST Diagnosis: Left foot pain[ICD10: M79.672] Perla BALDERSA DO [employer] CPT-4: 38395 09/03/2020 ([id number]) OFFICE/OUTPATIENT VISIT EST Diagnosis: Cephalgia[ICD10: R51.9] Diagnosis: Generalized anxiety disorder[ICD10: F41.1] Perla BALDERAS DO [employer] CPT-4: 09994 07/24/2020 ([id number]) OFFICE/OUTPATIENT VISIT EST Diagnosis: Migraine aura, persistent, intractable, with status migrainosus[ICD10: G43.511] Diagnosis: Generalized anxiety disorder[ICD10: F41.1] Anusha MENDESLINE Mirta BALDERAS DO [employer] CPT-4: 20645 07/02/2020 ([id number]) OFFICE/OUTPATIENT VISIT EST Diagnosis: Sinusitis[ICD10: J32.9] Anusha Tavares BRUNA [employer] TESSIE DEL CASTILLO [employer] CPT-4: 25624 05/25/2020 ([id number]) OFFICE/OUTPATIENT VISIT EST Diagnosis: Cephalgia[ICD10: R51.9] Diagnosis: Right sided numbness[ICD10: R20.0] Diagnosis: Nausea[ICD10: R11.0] Diagnosis: Right sided weakness[ICD10: R53.1] Bruna HEAD Mirta BALDERAS [employer] CPT-4: 94994 05/01/2020 ([id number]) OFFICE/OUTPATIENT VISIT EST Diagnosis: Cephalgia[ICD10: R51.9] Anusha MENDESLINE [employer] TESSIE ER [employer] CPT-4: 91537 04/27/2020 ([id number]) OFFICE/OUTPATIENT VISIT NEW Diagnosis: Endometriosis[ICD10: N80.9] Diagnosis: PCOS (polycystic ovarian syndrome)[ICD10: E28.2] Diagnosis: Depression[ICD10: F32.9] Diagnosis: Fatigue[ICD10: R53.83] Bruna WALKER [employer] JAMEELSUKHDEVSho R [employer] CPT-4: 41193 11/29/2019 Plan of Care Planned Activity Notes [...] discontinue in the past. Patient states her ob-hospice nurse said it was okay. Patient states she [...] 02/11/2021 Appointment: Perla Bowers WPtel: [phone] [facility] ACUTE ILLNESS 02/11/2021 Patient Education: Patient Medication Summary Completed 02/11/2021 Visit Diagnosis Plan: Vaccine counseling Discussion: D iscussed contraindications, side effects, patient concerns on COVID vaccine- patient does not have any contraindications. Recommended COVID vaccine. Questions answered. Patient and mother voiced understanding. Print-outs given from [facility] website on MRNA vaccines and covid vaccine safety and side effects. ICD-9 : V65.49 ICD-10 : Z71.89 11/20/2020 Appointment: Perla Bowers WPtel: [phone] ACUTE ILLNESS 11/20/2020 Patient Education: Patient [...] 10/30/2020 Appointment: Perla Bowers WPtel: [phone] [id number] FOLLOW UP 10/30/2020 Patient Education: Patient Medication Summary Completed 10/30/2020 Patient Education: buspirone- Optimize[employer] Coupon [phone] https://www.[employer]/samplemd/resources/getResource/61/t75d8w9g-z765-13fx-3t Completed 10/30/2020 Visit Diagnosis Plan: Left foot [...] : 729.5 ICD-10 : M79.672 09/03/2020 Appointment: MelaniePerla del rio WPtel: [phone] [facility] ACUTE ILLNESS 09/03/2020 Patient Education: Patient Medication Summary Completed 09/03/2020 Care Plan: X-RAY EXAM OF FOOT LOINC : 26 095-0 Pending 09/03/2020 Appointment: Bruna Balderas WPtel: [phone] [facility] US RESCHEDULED 07/30/2020 Visit Diagnosis Plan: Cephalgia [...] : 784.0 ICD-10 : R51.9 07/24/2020 Appointment: Socratesmanuelaquang Perla WPtel: [phone] [facility] FOLLOW UP 07/24/2020 Patient Education: Patient Medication Summary Completed 07/24/2020 Appointment: Anusha Chapin [address] [place], [place] [id number] US RESCHEDULED 07/16/2020 Visit Diagnosis Plan: Migraine [...] will send out full rx. call dr. cazares to reschedule appt. continue with chiropractor as [...] ICD-10 : F41.1 07/02/2020 Appointment: Anusha Chapin [address] [place] [address] ACUTE ILLNESS 07/02/2020 Patient Education: propranolol- OptimizeRX Coupon [phone] https://www.[employer]com/sampleReGenX Biosciences/resources/getResource/61/48958km3-h65i-4f5o-6p Completed 07/02/2020 Visit Diagnosis Plan: Sinusitis Discussion: stop the m ucinex but continue with otc allergy meds. augmentin to cover for bacterial sinus infection but instructed patient to get tested for COVID. instructed her to contact [facility] for testing. patient verbalized understanding. ICD-9 : 473.9 ICD-10 : J32.9 05/25/2020 Appointment: Anusha Chapin [address] [place], [place] [address] ACUTE ILLNESS 05/25/2020 Visit Diagnosis Plan: Right [...] R51.9 05/01/2020 Appointment: [facility] [phone] [facility] [facility] 05/01/2020 Patient Education: prednisone- OptimizeRX Coupon [phone] https://www.[employer]/sampleRe[employer]X [employer]/resources/getResource/61/p7rwb415-8q58-2y76-md Completed 05/01/2020 Patient Education: Valtrex- [employer] Coupon [phone] [id number] https://www.[employer]/resources/getResource/61/[email or web address]-b2 Completed 05/01/2020 Care Plan: Referral Order SNOMED-CT : 30 [id number] Pending 05/01/2020 Visit Diagnosis Plan: Cephalgia Discussion: [...] ICD-10 : R51.9 04/27/2020 Appointment: Anusha Chapin [address] [place] [address] ACUTE ILLNESS 04/27/2020 Patient Education: ketorolac- [employer] Coupon [phone] https://www.[employer]/resources/getResource/61/74959514-zq27-37q1-vw Completed 04/27/2020 Visit Diagnosis Plan: Depression Discussion: Stable on citalopram Follow Up: 6 months ICD-9 : 311 ICD-10 : F32.9 11/29/2019 Visit Diagnosis Plan: Fatigue Discussion: Check CBC, T SH, Free T4, CMP, iron/ferritin, insulin levels ICD-9 : 780.79 ICD-10 : R53.83 11/29/2019 Visit Diagnosis Plan: Endometriosis Discussion: Follow s with JOURNEY[facility] PRESSMAN ICD-9 : 617.9 ICD-10 : N80.9 11/29/2019 Appointment: [facility]el[facility] [phone] [facility] [facility] 11/29/2019 Referral: Jerman Cazares WPtel: [facility] [address] [place] [address] Referral Appointment Requested Instructions Comment . Supportive [...]
--- OUTSIDE RECORDS SUMMARY | 2021-04-11 23:13 | XMS REPORT | CCD ---
Author Author Melinda Balderas D.O. [facility] Organization BRUNA BALDERAS DO [facility] Address [address] [place] [address] Phone Care Team Providers Care Staff Technologist Name Role Phone PP Unavailable CCM Unavailable Summary Purpose Interface Exchange Insurance Providers Payer name Policy type / Coverage type Covered libertarian ID Effective Begin Date Effective End Date Blue Cross Blue Shield Blue Cross/Blue Shield [id number] 2019 Unknown Family History Family History data not found Social History Social History Element Codes Description Effective Dates Marital status Unknown Single 11/29/2019 Employment Unknown [facility] 11/29/[address]: 443790281 Has never smoked or chewed tobacco 11/29/[address]: 289365 Currently drinks alcohol 11/28 Has the patient [...] Fill Instructions Macrobid 100 mg capsule RxNorm: 668713 Take 1 Capsule(s) Oral Q 12H with food 03/06/2021 03/10/2021 Active Topamax 100 mg tablet RxNorm: 355972 1 Tablet(s) Oral two times a day 03/06/2021 04/04/2021 Active Pyridium 200 mg tablet RxNorm: 7142831 Take 1 Tablet(s) Oral three times a day after mealsas needed 03/06/2021 03/07/2021 Active citalopram 40 mg tablet RxNorm: 976929 1 Tablet(s) Oral QD repl aces 20mg dose 03/01/2021 05/29/2021 Active Topamax 50 mg tablet RxNorm: 980153 1 Tablet(s) Oral two times a da y 03/01/2021 03/01/2021 Inactive oxybutynin chloride ER 10 mg tablet,extended release 24 hr R xNorm: 663456 Take 1 Tablet(s) Oral QD 02/20/2021 05/20/2021 Active norethindrone (contraceptive) 0.35 mg tablet RxNorm: 268927 1 T ablet(s) Oral QD 02/14/2021 01/15/2022 Active oxybutynin chloride ER 10 mg tablet,extended release 24 hr R xNorm: 583658 1 Tablet(s) Oral QD 01/23/2021 01/23/2021 Inactive oxybutynin chloride ER 10 mg tablet,extended release 24 hr R xNorm: 977771 1 Tablet(s) Oral QD 01/23/2021 01/23/2021 Inactive citalopram 40 mg tablet RxNorm: 968993 1 Tablet(s) Oral QD repl aces 20mg dose 12/03/2020 12/03/2020 Inactive citalopram 40 mg tablet RxNorm: 755904 1 Tablet(s) Oral QD repl aces 20mg dose 12/03/2020 12/03/2020 Inactive Topamax 50 mg tablet RxNorm: 094777 1 Tablet(s) Oral two times a da y 10/30/2020 03/01/2021 Inactive buspirone 10 mg tablet RxNorm: 007074 Take 1 Tablet(s) Oral two times a day as needed for anxiety 10/30/2020 01/27/2021 Inactive citalopram 20 mg tablet RxNorm: 464658 1 Tablet(s) Oral QD 09/11/1912/02/2020 Inactive propranolol 40 mg tablet RxNorm: 872001 1 Tablet(s) Oral two ti mes a day 07/16/2020 07/15/2020 Inactive propranolol 40 mg tablet RxNorm: 685558 1 Tablet(s) Oral two ti mes a day 07/16/2020 10/29/2020 Inactive oxybutynin chloride 5 mg tablet RxNorm: 796218 1 Tablet(s) Oral QD 07/02/2020 01/22/2021 Inactive Nurtec ODT 75 mg disintegrating tablet RxNorm: 0116886 1 Tablet(s) Sublingual QD as needed for headache take as directed but no more than 9 in a month. 07/02/2020 03/05/2021 Inactive propranolol 40 mg tablet RxNorm: 502566 1 Tablet(s) Oral every night at bedtime 07/02/2020 07/15/2020 Inactive ProAir HFA 90 mcg/actuation aerosol inhaler RxNorm: 005211 2 Puff(s) Inhalation Q4H as needed 05/28/2020 05/27/2020 Inactive Medrol (Manuel) 4 mg tablets in a dose pack RxNorm: 586890 Tablet(s) Oral Take as prescribed 05/28/2020 05/27/2020 Inactive Zofran 4 mg tablet RxNorm: 982257 1 Tablet(s) Oral Q4H as neede d for nausea 05/28/2020 05/27/2020 Inactive Zofran 4 mg tablet RxNorm: 637315 1 Tablet(s) Oral Q4H as neede d for nausea 05/28/2020 05/28/2020 Inactive Medrol (Manuel) 4 mg tablets in a dose pack RxNorm: 704452 Tablet(s) Oral Take as prescribed 05/28/2020 05/28/2020 Inactive ProAir HFA 90 mcg/actuation aerosol inhaler RxNorm: 874593 2 Puff(s) Inhalation Q4H as needed 05/28/2020 05/28/2020 Inactive Augmentin 875 mg-125 mg tablet RxNorm: 244048 1 Tablet(s) Oral two times a day 05/25/2020 05/27/2020 Inactive citalopram 20 mg tablet RxNorm: 159384 Take 1 tablet by mouth o nce daily 05/22/2020 08/19/2020 Inactive diclofenac ER 100 mg tablet,extended release 24 hr RxNorm: 8 37571 1 Tablet(s) Oral two times a day as needed for headache 05/02/2020 05/01/2020 Inac tive diclofenac ER 100 mg tablet,extended release 24 hr RxNorm: 8 41662 1 Tablet(s) Oral two times a day as needed for headache 05/02/2020 05/02/2020 Inac tive prednisone 20 mg tablet RxNorm: 412903 1 Tablet(s) Oral two sherif es a day 05/01/2020 05/08/2020 Inactive Valtrex 1 gram tablet RxNorm: 952318 1 Tablet(s) Oral three sherif es a day 05/01/2020 05/08/2020 Inactive Lyrica 50 mg capsule RxNorm: 401934 1 Capsule(s) Oral QPM for n erve pain 04/27/2020 04/30/2020 Inactive Lyrica 50 mg capsule RxNorm: 277857 1 Capsule(s) Oral QPM for n erve pain 04/27/2020 04/26/2020 Inactive ketorolac 10 mg tablet RxNorm: 102760 1 Tablet(s) Oral four times a day as needed for pain with food 04/27/2020 04/30/2020 Inactive citalopram 20 mg tablet RxNorm: 744372 1 Tablet(s) Oral QD 03/12/20 20 05/21/2020 Inactive Loryna (28) 3 mg-0.02 mg tablet RxNorm: 1086268 1 Tablet (s) Oral Take as directed 03/12/2020 04/30/2020 Inactive Loryna (28) 3 mg-0.02 mg tablet RxNorm: 7886644 1 Tablet (s) Oral Take as directed 01/09/2020 03/11/2020 Inactive Loryna (28) 3 mg-0.02 mg tablet RxNorm: 0736146 1 Tablet (s) Oral Take as directed 01/09/2020 01/08/2020 Inactive citalopram 20 mg tablet RxNorm: 952264 1 Tablet(s) Oral QD 11/29/1903/11/2020 Inactive drospiren-e.estrad-l.mefol 3 mg-0.02 mg-0.451 mg(24)/0 .451 mg(4)tablet RxNorm: 5993504 1 Tablet(s) Oral QD 11/29/2019 04/30/2020 Inactive norethindrone (contraceptive) oral RxNorm: 7514 oral 02/14/2021 02/14/2021 Inactive Medication Administered No Medication Administered data Immunizations No Immunization data Results No Results data Procedures Procedure Codes Date URINALYSIS NONAUTO W/O SCOPE CPT-4: 66151 03/06/2021 URINE CULTURE/ COLONY COUNT CPT-4: 05973 03/06/2021 SARSCOV & INF VIR A&B AG IA CPT-4: 46927 03/06/2021 THER/PROPH/DIAG INJ SC/IM CPT-4: 90444 05/01/2020 KETOROLAC TROMETHAMINE INJ CPT-4: J1885 05/01/2020 THER/PROPH/DIAG INJ SC/IM CPT-4: 53530 05/01/2020 METHYLPREDNISOLONE INJECTION CPT-4: J2930 05/01/2020 ONDANSETRON HCL INJECTION CPT-4: J2405 05/01/2020 Vital Signs Date Vital 03/06/2021 Blood Pressure 1: 119/68 Code: 8480-6 Heart Rate 1: 97 bpm Respiratory Rate: 16 bpm SpO2: 98% Temperature: 36.4 (C) / 97.5 (F) We ight: 158 lbs Code: 29873-8 02/11/2021 Heart Rate 1: 84 bpm Respiratory Rate: 18 bpm SpO2: 99 % Temperature: 36.6 (C) / 97.8 (F) 11/20/2020 Blood Pressure 1: 117/68 Code: 8480-6 Heart Rate 1: 68 bpm Respiratory Rate: 16 bpm SpO2: 99% Temperature: 36.6 (C) / 97.8 (F) We ight: 161 lbs Code: 14941-6 10/30/2020 Blood Pressure 1: 124/74 Code: 8480-6 BMI: 27.6 Code: 42698-1 Heart Rate 1: 92 bpm Height: 5'4" Code: 8302-2 Respiratory Rate: 16 bpm SpO2: 99% Temperature: 36.4 (C) / 97.5 (F) Weight: 161 lbs Code: 51441-2 09/03/2020 Blood Pressure 1: 124/64 Code: 8480-6 BMI: 28.2 Code: 27420-3 Heart Rate 1: 92 bpm Height: 5'4" Code: 8302-2 Respiratory Rate: 22 bpm SpO2: 96% Temperature: 36.7 (C) / 98.0 (F) Weight: 164 lbs Code: 73017-5 07/24/2020 Blood Pressure 1: 132/76 Code: 8480-6 BMI: 28.7 Code: 36574-6 Heart Rate 1: 90 bpm Height: 5'4" Code: 8302-2 Respiratory Rate: 16 bpm SpO2: 99% Temperature: 36.5 (C) / 97.7 (F) Weight: 167 lbs Code: 91297-3 07/02/2020 Blood Pressure 1: 127/76 Code: 8480-6 Heart Rate 1: 98 bpm Respiratory Rate: 15 bpm SpO2: 98% Temperature: 36.3 (C) / 97.3 (F) We ight: 167 lbs Code: 00203-7 05/25/2020 Blood Pressure 1: 118/76 Code: 8480-6 BMI: 29.2 Code: 19719-7 Heart Rate 1: 92 bpm Height: 5'4" Code: 8302-2 Respiratory Rate: 20 bpm SpO2: 96% Temperature: 36.2 (C) / 97.1 (F) Weight: 170 lbs Code: 72852-7 05/01/2020 Blood Pressure 1: 114/86 Code: 8480-6 Heart Rate 1: 104 bpm Respiratory Rate: 22 bpm SpO2: 99% Temperature: 36.9 (C) / 98.4 (F) 04/27/2020 Blood Pressure 1: 119/64 Code: 8480-6 Heart Rate 1: 95 bpm Respiratory Rate: 16 bpm SpO2: 98% Temperature: 36.4 (C) / 97.5 (F) We ight: 165 lbs Code: 71598-7 11/29/2019 Blood Pressure 1: 104/76 Code: 8480-6 BMI: 26.8 Code: 03472-6 Heart Rate 1: 80 bpm Height: 5'4" Code: 8302-2 Respiratory Rate: 20 bpm SpO2: 98% Temperature: 36.4 (C) / 97.5 (F) Weight: 156 lbs Code: 99116-1 Functional Status No Functional Status data Reason [...] visit Encounters Encounter Performer Location Codes Date ([id number]) OFFICE/OUTPATIENT VISIT EST Diagnosis: Acute cystitis with hematuria[ICD10: N30.01] Diagnosis: Nasal congestion[ICD10: R09.81] [facility] CPT-[facility]: 28813 03/06/2021 ([id number]) OFFICE/OUTPATIENT VISIT EST Diagnosis: Cephalgia[ICD10: R51.9] Diagnosis: Right ear pain[ICD10: H92.01] [facility]la [facility] CPT-[facility]: 04238 02/11/2021 ([id number]) OFFICE/OUTPATIENT VISIT EST Diagnosis: Vaccine counseling[ICD10: Z71.89] Perla BALDERAS [place] CPT-4: 33887 11/20/2020 ([id number]) OFFICE/OUTPATIENT VISIT EST Diagnosis: Generalized anxiety disorder[ICD10: F41.1] Diagnosis: Depression[ICD10: F32.9] Diagnosis: School physical exam[ICD10: Z02.0] [facility] CPT-[facility]: 39473 10/30/2020 ([id number]) OFFICE/OUTPATIENT VISIT EST Diagnosis: Left foot pain[ICD10: M79.672] Perla BALDERAS [place] CPT-4: 80463 09/03/2020 ([id number]) OFFICE/OUTPATIENT VISIT EST Diagnosis: Cephalgia[ICD10: R51.9] Diagnosis: Generalized anxiety disorder[ICD10: F41.1] Perla MENDESLINE [facility] ROBBY [place] CPT-4: 13213 07/24/2020 ([id number]) OFFICE/OUTPATIENT VISIT EST Diagnosis: Migraine aura, persistent, intractable, with status migrainosus[ICD10: G43.511] Diagnosis: Generalized anxiety disorder[ICD10: F41.1] Anusha MENDESLINE [facility] ROBBY [place] CPT-4: 37522 07/02/2020 ([id number]) OFFICE/OUTPATIENT VISIT EST Diagnosis: Sinusitis[ICD10: J32.9] Anusha MENDESLINE [facility] TESSIE DEL CASTILLO [place] CPT-4: 69575 05/25/2020 ([id number]) OFFICE/OUTPATIENT VISIT EST Diagnosis: Cephalgia[ICD10: R51.9] Diagnosis: Right sided numbness[ICD10: R20.0] Diagnosis: Nausea[ICD10: R11.0] Diagnosis: Right sided weakness[ICD10: R53.1] Bruna HEAD [facility] ROBBY [place] CPT-4: 05829 05/01/2020 ([id number]) OFFICE/OUTPATIENT VISIT EST Diagnosis: Cephalgia[ICD10: R51.9] Anusha MENDESLINE [facility] TESSIE DEL CASTILLO [place] CPT-4: 79061 04/27/2020 (69019) OFFICE/OUTPATIENT VISIT NEW Diagnosis: Endometriosis[ICD10: N80.9] Diagnosis: PCOS (polycystic ovarian syndrome)[ICD10: E28.2] Diagnosis: Depression[ICD10: F32.9] Diagnosis: Fatigue[ICD10: R53.83] Bruna WALKER [facility] JAMEELYESENIA R [place] CPT-4: 54807 11/29/2019 Plan of Care Planned Activity Notes [...] discontinue in the past. Patient states her ob-clearance representative said it was okay. Patient states she [...] 02/11/2021 Appointment: Perla Bowers WPtel[facility] [phone] [facility] [facility] [place] 02/11/2021 Patient Education: Patient Medication Summary Completed 02/11/2021 Visit Diagnosis Plan: Vaccine counseling Discussion: D iscussed contraindications, side effects, patient concerns on COVID vaccine- patient does not have any contraindications. Recommended COVID vaccine. Questions answered. Patient and mother voiced understanding. Print-outs given from [facility] website on MRNA vaccines and covid vaccine safety and side effects. ICD-9 : V65.49 ICD-10 : Z71.89 11/20/2020 Appointment: Perla Bowers WPtel: [phone] [facility] ACUTE ILLNESS 11/20/2020 Patient Education: Patient [...] 10/30/2020 Appointment: Perla Bowers WPtel: [phone] [facility] FOLLOW UP 10/30/2020 Patient Education: Patient Medication Summary Completed 10/30/2020 Patient Education: buspirone- Optimize[employer] Coupon [id number] https://www.[employer].My Mega Bookstore/samplemd/resources/getResource/61/i01j1e2j-m606-09sw-5i Completed 10/30/2020 Visit Diagnosis Plan: Left foot [...] 09/03/2020 Appointment: Perla Bowers WPtel: [phone] [facility] ACUTE ILLNESS 09/03/2020 Patient Education: Patient Medication Summary Completed 09/03/2020 Care Plan: X-RAY EXAM OF FOOT LOINC : 26 095-0 Pending 09/03/2020 Appointment: Bruna Balderas [facility]el[facility] [phone] [id number] [facility] RESCHEDULED 07/30/2020 Visit Diagnosis Plan: Cephalgia [...] 07/24/2020 Appointment: Perla Bowers WPtel: [phone] [facility] FOLLOW UP 07/24/2020 Patient Education: Patient Medication Summary Completed 07/24/2020 Appointment: Anusha Chapin [address] RESCHEDULED 07/16/2020 Visit Diagnosis Plan: Migraine [...] ICD-10 : F41.1 07/02/2020 Appointment: Anusha Chapin [address] [place], [place] [address] ACUTE ILLNESS 07/02/2020 Patient Education: propranolol- Optimize[employer] Coupon [phone] https://www.[employer]stead[employer].io/sampleBlueConic/resources/getResource/61/10119fr7-n16u-5r8p-7r Completed 07/02/2020 Visit Diagnosis Plan: Sinusitis Discussion: stop the m ucinex but continue with otc allergy meds. augmentin to cover for bacterial sinus infection but instructed patient to get tested for COVID. instructed her to contact [facility] for testing. patient verbalized understanding. ICD-9 : 473.9 ICD-10 : J32.9 05/25/2020 Appointment: Anusha Chapin [address] [place], [place] [address] ACUTE ILLNESS 05/25/2020 Visit Diagnosis Plan: Right [...] 784.0 ICD-10 : R51.9 05/01/2020 Appointment: [facility]una Baldears [facility]el[facility] [phone] [facility] [facility] 05/01/2020 Patient Education: prednisone- OptimizeRX Coupon [phone] https://www.Workstead[employer].io/sampleBlueConic/resources/getResource/61/q9dzg863-4o79-2n13-dc Completed 05/01/2020 Patient Education: Valtrex- Opt[employer] Coupon [id number] https://www.Workstead[employer].io/[place]/resources/getResource/61/tj47t5p7-3px3-2703-k5 Completed 05/01/2020 Care Plan: Referral Order SNOMED-CT : 30 [id number] Pending 05/01/2020 Visit Diagnosis Plan: Cephalgia Discussion: [...] ICD-10 : R51.9 04/27/2020 Appointment: Anusha Chapin [address] [place] [address] ACUTE ILLNESS 04/27/2020 Patient Education: ketorolac- Opt[employer] Coupon [phone] https://www.Workstead[employer].io/[place]/resources/getResource/61/78835608-jn36-67n6-yn Completed 04/27/2020 Visit Diagnosis Plan: Depression Discussion: Stable on citalopram Follow Up: 6 months ICD-9 : 311 ICD-10 : F32.9 11/29/2019 Visit Diagnosis Plan: Fatigue Discussion: Check CBC, T SH, Free T4, CMP, iron/ferritin, insulin levels ICD-9 : 780.79 ICD-10 : R53.83 11/29/2019 Visit Diagnosis Plan: Endometriosis 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 Supportive [...]
--- OUTSIDE RECORDS SUMMARY | 2021-04-11 23:13 | XMS REPORT | CCD ---
Author Author Melinda Balderas D.O. [facility] Organization BRUNA BALDERAS DO [facility] Address [address] [place] [address] Phone Care Team Providers Care Fuel Cell Battery Technician Name Role Phone PP Unavailable CCM Unavailable Summary Purpose Interface Exchange Insurance Providers Payer name Policy type / Coverage type Covered democrat ID Effective Begin Date Effective End Date Blue Cross Blue Shield Blue Cross/Blue Shield [id number] 2019 Unknown Family History Family History data not found Social History Social History Element Codes Description Effective Dates Marital status Unknown Single 11/29/2019 Employment Unknown [facility] 11/29/[address]: 554897672 Has never smoked or chewed tobacco 11/29/[address]: 804275 Currently drinks alcohol 11/28 Has the patient [...] Fill Instructions Macrobid 100 mg capsule RxNorm: 311590 Take 1 Capsule(s) Oral Q 12H with food 03/06/2021 03/10/2021 Active Topamax 100 mg tablet RxNorm: 869724 1 Tablet(s) Oral two times a day 03/06/2021 04/04/2021 Active Pyridium 200 mg tablet RxNorm: 5518865 Take 1 Tablet(s) Oral three times a day after mealsas needed 03/06/2021 03/07/2021 Active citalopram 40 mg tablet RxNorm: 851705 1 Tablet(s) Oral QD repl aces 20mg dose 03/01/2021 05/29/2021 Active Topamax 50 mg tablet RxNorm: 857609 1 Tablet(s) Oral two times a da y 03/01/2021 03/01/2021 Inactive oxybutynin chloride ER 10 mg tablet,extended release 24 hr R xNorm: 404020 Take 1 Tablet(s) Oral QD 02/20/2021 05/20/2021 Active norethindrone (contraceptive) 0.35 mg tablet RxNorm: 122551 1 T ablet(s) Oral QD 02/14/2021 01/15/2022 Active oxybutynin chloride ER 10 mg tablet,extended release 24 hr R xNorm: 359170 1 Tablet(s) Oral QD 01/23/2021 01/23/2021 Inactive oxybutynin chloride ER 10 mg tablet,extended release 24 hr R xNorm: 896879 1 Tablet(s) Oral QD 01/23/2021 01/23/2021 Inactive citalopram 40 mg tablet RxNorm: 404937 1 Tablet(s) Oral QD repl aces 20mg dose 12/03/2020 12/03/2020 Inactive citalopram 40 mg tablet RxNorm: 212836 1 Tablet(s) Oral QD repl aces 20mg dose 12/03/2020 12/03/2020 Inactive Topamax 50 mg tablet RxNorm: 769173 1 Tablet(s) Oral two times a da y 10/30/2020 03/01/2021 Inactive buspirone 10 mg tablet RxNorm: 229236 Take 1 Tablet(s) Oral two times a day as needed for anxiety 10/30/2020 01/27/2021 Inactive citalopram 20 mg tablet RxNorm: 635434 1 Tablet(s) Oral QD 09/11/1912/02/2020 Inactive propranolol 40 mg tablet RxNorm: 679395 1 Tablet(s) Oral two ti mes a day 07/16/2020 07/15/2020 Inactive propranolol 40 mg tablet RxNorm: 934602 1 Tablet(s) Oral two ti mes a day 07/16/2020 10/29/2020 Inactive oxybutynin chloride 5 mg tablet RxNorm: 713573 1 Tablet(s) Oral QD 07/02/2020 01/22/2021 Inactive Nurtec ODT 75 mg disintegrating tablet RxNorm: 5500099 1 Tablet(s) Sublingual QD as needed for headache take as directed but no more than 9 in a month. 07/02/2020 03/05/2021 Inactive propranolol 40 mg tablet RxNorm: 163254 1 Tablet(s) Oral every night at bedtime 07/02/2020 07/15/2020 Inactive ProAir HFA 90 mcg/actuation aerosol inhaler RxNorm: 037796 2 Puff(s) Inhalation Q4H as needed 05/28/2020 05/27/2020 Inactive Medrol (Manuel) 4 mg tablets in a dose pack RxNorm: 322791 Tablet(s) Oral Take as prescribed 05/28/2020 05/27/2020 Inactive Zofran 4 mg tablet RxNorm: 918151 1 Tablet(s) Oral Q4H as neede d for nausea 05/28/2020 05/27/2020 Inactive Zofran 4 mg tablet RxNorm: 292438 1 Tablet(s) Oral Q4H as neede d for nausea 05/28/2020 05/28/2020 Inactive Medrol (Manuel) 4 mg tablets in a dose pack RxNorm: 024242 Tablet(s) Oral Take as prescribed 05/28/2020 05/28/2020 Inactive ProAir HFA 90 mcg/actuation aerosol inhaler RxNorm: 732201 2 Puff(s) Inhalation Q4H as needed 05/28/2020 05/28/2020 Inactive Augmentin 875 mg-125 mg tablet RxNorm: 755495 1 Tablet(s) Oral two times a day 05/25/2020 05/27/2020 Inactive citalopram 20 mg tablet RxNorm: 553494 Take 1 tablet by mouth o nce daily 05/22/2020 08/19/2020 Inactive diclofenac ER 100 mg tablet,extended release 24 hr RxNorm: 8 37117 1 Tablet(s) Oral two times a day as needed for headache 05/02/2020 05/01/2020 Inac tive diclofenac ER 100 mg tablet,extended release 24 hr RxNorm: 8 69985 1 Tablet(s) Oral two times a day as needed for headache 05/02/2020 05/02/2020 Inac tive prednisone 20 mg tablet RxNorm: 034085 1 Tablet(s) Oral two sherif es a day 05/01/2020 05/08/2020 Inactive Valtrex 1 gram tablet RxNorm: 605193 1 Tablet(s) Oral three sherif es a day 05/01/2020 05/08/2020 Inactive Lyrica 50 mg capsule RxNorm: 806871 1 Capsule(s) Oral QPM for n erve pain 04/27/2020 04/30/2020 Inactive Lyrica 50 mg capsule RxNorm: 063297 1 Capsule(s) Oral QPM for n erve pain 04/27/2020 04/26/2020 Inactive ketorolac 10 mg tablet RxNorm: 317964 1 Tablet(s) Oral four times a day as needed for pain with food 04/27/2020 04/30/2020 Inactive citalopram 20 mg tablet RxNorm: 584828 1 Tablet(s) Oral QD 03/12/20 20 05/21/2020 Inactive Loryna (28) 3 mg-0.02 mg tablet RxNorm: 9059377 1 Tablet (s) Oral Take as directed 03/12/2020 04/30/2020 Inactive Loryna (28) 3 mg-0.02 mg tablet RxNorm: 2647988 1 Tablet (s) Oral Take as directed 01/09/2020 03/11/2020 Inactive Loryna (28) 3 mg-0.02 mg tablet RxNorm: 1280662 1 Tablet (s) Oral Take as directed 01/09/2020 01/08/2020 Inactive citalopram 20 mg tablet RxNorm: 081884 1 Tablet(s) Oral QD 11/29/1903/11/2020 Inactive drospiren-e.estrad-l.mefol 3 mg-0.02 mg-0.451 mg(24)/0 .451 mg(4)tablet RxNorm: 2781015 1 Tablet(s) Oral QD 11/29/2019 04/30/2020 Inactive norethindrone (contraceptive) oral RxNorm: 7514 oral 02/14/2021 02/14/2021 Inactive Medication Administered No Medication Administered data Immunizations No Immunization data Results No Results data Procedures Procedure Codes Date URINALYSIS NONAUTO W/O SCOPE CPT-4: 14387 03/06/2021 URINE CULTURE/ COLONY COUNT CPT-4: 71424 03/06/2021 SARSCOV & INF VIR A&B AG IA CPT-4: 77049 03/06/2021 THER/PROPH/DIAG INJ SC/IM CPT-4: 35195 05/01/2020 KETOROLAC TROMETHAMINE INJ CPT-4: J1885 05/01/2020 THER/PROPH/DIAG INJ SC/IM CPT-4: 81259 05/01/2020 METHYLPREDNISOLONE INJECTION CPT-4: J2930 05/01/2020 ONDANSETRON HCL INJECTION CPT-4: J2405 05/01/2020 Vital Signs Date Vital 03/06/2021 Blood Pressure 1: 119/68 Code: 8480-6 Heart Rate 1: 97 bpm Respiratory Rate: 16 bpm SpO2: 98% Temperature: 36.4 (C) / 97.5 (F) We ight: 158 lbs Code: 81251-1 02/11/2021 Heart Rate 1: 84 bpm Respiratory Rate: 18 bpm SpO2: 99 % Temperature: 36.6 (C) / 97.8 (F) 11/20/2020 Blood Pressure 1: 117/68 Code: 8480-6 Heart Rate 1: 68 bpm Respiratory Rate: 16 bpm SpO2: 99% Temperature: 36.6 (C) / 97.8 (F) We ight: 161 lbs Code: 28124-1 10/30/2020 Blood Pressure 1: 124/74 Code: 8480-6 BMI: 27.6 Code: 08216-0 Heart Rate 1: 92 bpm Height: 5'4" Code: 8302-2 Respiratory Rate: 16 bpm SpO2: 99% Temperature: 36.4 (C) / 97.5 (F) Weight: 161 lbs Code: 61153-6 09/03/2020 Blood Pressure 1: 124/64 Code: 8480-6 BMI: 28.2 Code: 39492-6 Heart Rate 1: 92 bpm Height: 5'4" Code: 8302-2 Respiratory Rate: 22 bpm SpO2: 96% Temperature: 36.7 (C) / 98.0 (F) Weight: 164 lbs Code: 63608-9 07/24/2020 Blood Pressure 1: 132/76 Code: 8480-6 BMI: 28.7 Code: 56297-1 Heart Rate 1: 90 bpm Height: 5'4" Code: 8302-2 Respiratory Rate: 16 bpm SpO2: 99% Temperature: 36.5 (C) / 97.7 (F) Weight: 167 lbs Code: 33582-1 07/02/2020 Blood Pressure 1: 127/76 Code: 8480-6 Heart Rate 1: 98 bpm Respiratory Rate: 15 bpm SpO2: 98% Temperature: 36.3 (C) / 97.3 (F) We ight: 167 lbs Code: 72670-6 05/25/2020 Blood Pressure 1: 118/76 Code: 8480-6 BMI: 29.2 Code: 94345-4 Heart Rate 1: 92 bpm Height: 5'4" Code: 8302-2 Respiratory Rate: 20 bpm SpO2: 96% Temperature: 36.2 (C) / 97.1 (F) Weight: 170 lbs Code: 69850-7 05/01/2020 Blood Pressure 1: 114/86 Code: 8480-6 Heart Rate 1: 104 bpm Respiratory Rate: 22 bpm SpO2: 99% Temperature: 36.9 (C) / 98.4 (F) 04/27/2020 Blood Pressure 1: 119/64 Code: 8480-6 Heart Rate 1: 95 bpm Respiratory Rate: 16 bpm SpO2: 98% Temperature: 36.4 (C) / 97.5 (F) We ight: 165 lbs Code: 84391-0 11/29/2019 Blood Pressure 1: 104/76 Code: 8480-6 BMI: 26.8 Code: 55674-0 Heart Rate 1: 80 bpm Height: 5'4" Code: 8302-2 Respiratory Rate: 20 bpm SpO2: 98% Temperature: 36.4 (C) / 97.5 (F) Weight: 156 lbs Code: 52978-7 Functional Status No Functional Status data Reason [...] visit Encounters Encounter Performer Location Codes Date ([id number]) OFFICE/OUTPATIENT VISIT EST Diagnosis: Acute cystitis with hematuria[ICD10: N30.01] Diagnosis: Nasal congestion[ICD10: R09.81] Perla [employer] CPT-4: 44119 03/06/2021 ([id number]) OFFICE/OUTPATIENT VISIT EST Diagnosis: Cephalgia[ICD10: R51.9] Diagnosis: Right ear pain[ICD10: H92.01] Perla Kirby [email or web address] CPT-4: 02875 02/11/2021 ([id number]) OFFICE/OUTPATIENT VISIT EST Diagnosis: Vaccine counseling[ICD10: Z71.89] Perla BALDERAS [employer] CPT-4: 69388 11/20/2020 ([id number]) OFFICE/OUTPATIENT VISIT EST Diagnosis: Generalized anxiety disorder[ICD10: F41.1] Diagnosis: Depression[ICD10: F32.9] Diagnosis: School physical exam[ICD10: Z02.0] Perla [employer] CPT-4: 57597 10/30/2020 ([id number]) OFFICE/OUTPATIENT VISIT EST Diagnosis: Left foot pain[ICD10: M79.672] Perla BALDERAS [employer] CPT-4: 11189 09/03/2020 ([id number]) OFFICE/OUTPATIENT VISIT EST Diagnosis: Cephalgia[ICD10: R51.9] Diagnosis: Generalized anxiety disorder[ICD10: F41.1] Perla MENDESLINE ChristianIsreal ROBBY [employer] CPT-4: 62464 07/24/2020 ([id number]) OFFICE/OUTPATIENT VISIT EST Diagnosis: Migraine aura, persistent, intractable, with status migrainosus[ICD10: G43.511] Diagnosis: Generalized anxiety disorder[ICD10: F41.1] Anusha MENDESLINE [employer] ROBBY [employer] CPT-4: 87198 07/02/2020 ([id number]) OFFICE/OUTPATIENT VISIT EST Diagnosis: Sinusitis[ICD10: J32.9] Anusha MENDESLINE Christian[employer]real TESSIE DEL CASTILLO [employer] CPT-4: 21873 05/25/2020 ([id number]) OFFICE/OUTPATIENT VISIT EST Diagnosis: Cephalgia[ICD10: R51.9] Diagnosis: Right sided numbness[ICD10: R20.0] Diagnosis: Nausea[ICD10: R11.0] Diagnosis: Right sided weakness[ICD10: R53.1] Bruna HEAD [employer] ROBBY [employer] CPT-4: 27010 05/01/2020 ([id number]) OFFICE/OUTPATIENT VISIT EST Diagnosis: Cephalgia[ICD10: R51.9] Anusha MENDESLINE [employer] TESSIE DEL CASTILLO [employer] CPT-4: 40750 04/27/2020 ([id number]) OFFICE/OUTPATIENT VISIT NEW Diagnosis: Endometriosis[ICD10: N80.9] Diagnosis: PCOS (polycystic ovarian syndrome)[ICD10: E28.2] Diagnosis: Depression[ICD10: F32.9] Diagnosis: Fatigue[ICD10: R53.83] Bruna WALKER Christian[employer]real JAMEELYESENIA R [employer] CPT-4: 28352 11/29/2019 Plan of Care Planned Activity Notes [...] discontinue in the past. Patient states her ob-spinning doffer said it was okay. Patient states she [...] 02/11/2021 Appointment: Per[facility] Bow[facility] [phone] [facility] [place] [facility] [facility] 02/11/2021 Patient Education: Patient Medication Summary Completed 02/11/2021 Visit Diagnosis Plan: Vaccine counseling Discussion: D iscussed contraindications, side effects, patient concerns on COVID vaccine- patient does not have any contraindications. Recommended COVID vaccine. Questions answered. Patient and mother voiced understanding. Print-outs given from [facility] website on MRNA vaccines and covid vaccine safety and side effects. ICD-9 : V65.49 ICD-10 : Z71.89 11/20/2020 Appointment: Perla Bowers WPtel: [phone] [facility] ACUTE ILLNESS 11/20/2020 Patient Education: Patient Medication [...] 10/30/2020 Appointment: Perla Bowers WPtel: [phone] [facility] FOLLOW UP 10/30/2020 Patient Education: Patient Medication Summary Completed 10/30/2020 Patient Education: buspirone- Opt[employer] Coupon [phone] https://www.[employer]ucky [employer].What's in My Handbag/samplemd/resources/getResource/61/i18v8p9d-q344-61bc-2k Completed 10/30/2020 Visit Diagnosis Plan: Left foot [...] 09/03/2020 Appointment: Perla Bowers WPtel: [phone] [facility] ACUTE ILLNESS 09/03/2020 Patient Education: Patient Medication Summary Completed 09/03/2020 Care Plan: X-RAY EXAM OF FOOT LOINC : 26 095-0 Pending 09/03/2020 Appointment: Bruna Balderas [facility]el[facility] [phone] [id number] RESCHEDULED 07/30/2020 Visit Diagnosis Plan: Cephalgia [...] : R51.9 07/24/2020 Appointment: Perla Bowers WPtel: [phone] [facility] FOLLOW UP 07/24/2020 Patient Education: Patient Medication Summary Completed 07/24/2020 Appointment: Anusha Chapin [address] RESCHEDULED 07/16/2020 Visit Diagnosis Plan: Migraine [...] ICD-10 : F41.1 07/02/2020 Appointment: Anusha Chapin [address] [place], [place] [id number] ACUTE ILLNESS 07/02/2020 Patient Education: propranolol- Optimize[employer] Coupon [phone] https://www.[employer]/sampleStemPath/resources/getResource/61/55240gv6-k98a-6c1m-3o Completed 07/02/2020 Visit Diagnosis Plan: Sinusitis Discussion: stop the m ucinex but continue with otc allergy meds. augmentin to cover for bacterial sinus infection but instructed patient to get tested for COVID. instructed her to contact [facility] for testing. patient verbalized understanding. ICD-9 : 473.9 ICD-10 : J32.9 05/25/2020 Appointment: Anusha Chapin [address] [place], [place] [id number] ACUTE ILLNESS 05/25/2020 Visit Diagnosis Plan: Right [...] R51.9 05/01/2020 [facility]ment[facility] [phone] [facility] [facility] 05/01/2020 Patient Education: prednisone- [employer] Coupon [phone] https://www.[employer]/sampleStemPath/resources/getResource/61/u6tcg691-6x70-4i92-ex Completed 05/01/2020 Patient Education: Valtrex- [employer] Coupon [id number] [id number] https://www.[employer]/Lucky [employer]/resources/getResource/61/xt26s7w4-6nm7-6962-w1 Completed 05/01/2020 Care Plan: Referral Order SNOMED-CT : 30 [id number] Pending 05/01/2020 Visit Diagnosis Plan: Cephalgia Discussion: [...] ICD-10 : R51.9 04/27/2020 Appointment: Anusha Chapin [address] [place] [address] ACUTE ILLNESS 04/27/2020 Patient Education: ketorolac- [employer] Coupon [phone] https://www.[employer]/Lucky [employer]/resources/getResource/61/44684232-kj82-20w1-ry Completed 04/27/2020 Visit Diagnosis Plan: Depression Discussion: Stable on citalopram Follow Up: 6 months ICD-9 : 311 ICD-10 : F32.9 11/29/2019 Visit Diagnosis Plan: Fatigue Discussion: Check CBC, T SH, Free T4, CMP, iron/ferritin, insulin levels ICD-9 : 780.79 ICD-10 : R53.83 11/29/2019 Visit Diagnosis Plan: Endometriosis Discussion: Follow s with [employer]ACHINE [employer] ICD-9 : 617.9 ICD-10 : N80.9 11/29/2019 Appointment: Bruna Balderas WPtel: [phone] NEW PATIENT 11/29/2019 Referral: Jerman Vizcarra W[facility]el: [facility] [address] [place], [place] [id number] Referral Appointment Requested Instructions Comment . Supportive [...]
--- OUTSIDE RECORDS SUMMARY | 2021-04-11 23:13 | XMS REPORT | CCD ---
Author Author Melinda Balderas D.O. [facility] Organization BRUNA BALDERAS DO [facility] Address [address] [place] [address] Phone Care Team Providers Care Physics Professor Name Role Phone PP Unavailable CCM Unavailable Summary Purpose Interface Exchange Insurance Providers Payer name Policy type / Coverage type Covered libertarian ID Effective Begin Date Effective End Date Blue Cross Blue Shield Blue Cross/Blue Shield [id number] 2019 Unknown Family History Family History data not found Social History Social History Element Codes Description Effective Dates Marital status Unknown Single 11/29/2019 Employment Unknown [facility] 11/29/[address]: 999091694 Has never smoked or chewed tobacco 11/29/[address]: 745949 Currently drinks alcohol 11/28 Has the patient [...] Fill Instructions Macrobid 100 mg capsule RxNorm: 824585 Take 1 Capsule(s) Oral Q 12H with food 03/06/2021 03/10/2021 Active Topamax 100 mg tablet RxNorm: 006024 1 Tablet(s) Oral two times a day 03/06/2021 04/04/2021 Active Pyridium 200 mg tablet RxNorm: 3326914 Take 1 Tablet(s) Oral three times a day after mealsas needed 03/06/2021 03/07/2021 Active citalopram 40 mg tablet RxNorm: 110833 1 Tablet(s) Oral QD repl aces 20mg dose 03/01/2021 05/29/2021 Active Topamax 50 mg tablet RxNorm: 706763 1 Tablet(s) Oral two times a da y 03/01/2021 03/01/2021 Inactive oxybutynin chloride ER 10 mg tablet,extended release 24 hr R xNorm: 847131 Take 1 Tablet(s) Oral QD 02/20/2021 05/20/2021 Active norethindrone (contraceptive) 0.35 mg tablet RxNorm: 583784 1 T ablet(s) Oral QD 02/14/2021 01/15/2022 Active oxybutynin chloride ER 10 mg tablet,extended release 24 hr R xNorm: 096418 1 Tablet(s) Oral QD 01/23/2021 01/23/2021 Inactive oxybutynin chloride ER 10 mg tablet,extended release 24 hr R xNorm: 649684 1 Tablet(s) Oral QD 01/23/2021 01/23/2021 Inactive citalopram 40 mg tablet RxNorm: 163674 1 Tablet(s) Oral QD repl aces 20mg dose 12/03/2020 12/03/2020 Inactive citalopram 40 mg tablet RxNorm: 425642 1 Tablet(s) Oral QD repl aces 20mg dose 12/03/2020 12/03/2020 Inactive Topamax 50 mg tablet RxNorm: 508510 1 Tablet(s) Oral two times a da y 10/30/2020 03/01/2021 Inactive buspirone 10 mg tablet RxNorm: 415355 Take 1 Tablet(s) Oral two times a day as needed for anxiety 10/30/2020 01/27/2021 Inactive citalopram 20 mg tablet RxNorm: 734584 1 Tablet(s) Oral QD 09/11/1912/02/2020 Inactive propranolol 40 mg tablet RxNorm: 878496 1 Tablet(s) Oral two ti mes a day 07/16/2020 07/15/2020 Inactive propranolol 40 mg tablet RxNorm: 041723 1 Tablet(s) Oral two ti mes a day 07/16/2020 10/29/2020 Inactive oxybutynin chloride 5 mg tablet RxNorm: 278958 1 Tablet(s) Oral QD 07/02/2020 01/22/2021 Inactive Nurtec ODT 75 mg disintegrating tablet RxNorm: 1786683 1 Tablet(s) Sublingual QD as needed for headache take as directed but no more than 9 in a month. 07/02/2020 03/05/2021 Inactive propranolol 40 mg tablet RxNorm: 023888 1 Tablet(s) Oral every night at bedtime 07/02/2020 07/15/2020 Inactive ProAir HFA 90 mcg/actuation aerosol inhaler RxNorm: 989873 2 Puff(s) Inhalation Q4H as needed 05/28/2020 05/27/2020 Inactive Medrol (Manuel) 4 mg tablets in a dose pack RxNorm: 473383 Tablet(s) Oral Take as prescribed 05/28/2020 05/27/2020 Inactive Zofran 4 mg tablet RxNorm: 182764 1 Tablet(s) Oral Q4H as neede d for nausea 05/28/2020 05/27/2020 Inactive Zofran 4 mg tablet RxNorm: 080742 1 Tablet(s) Oral Q4H as neede d for nausea 05/28/2020 05/28/2020 Inactive Medrol (Manuel) 4 mg tablets in a dose pack RxNorm: 236898 Tablet(s) Oral Take as prescribed 05/28/2020 05/28/2020 Inactive ProAir HFA 90 mcg/actuation aerosol inhaler RxNorm: 423119 2 Puff(s) Inhalation Q4H as needed 05/28/2020 05/28/2020 Inactive Augmentin 875 mg-125 mg tablet RxNorm: 478905 1 Tablet(s) Oral two times a day 05/25/2020 05/27/2020 Inactive citalopram 20 mg tablet RxNorm: 123368 Take 1 tablet by mouth o nce daily 05/22/2020 08/19/2020 Inactive diclofenac ER 100 mg tablet,extended release 24 hr RxNorm: 8 07949 1 Tablet(s) Oral two times a day as needed for headache 05/02/2020 05/01/2020 Inac tive diclofenac ER 100 mg tablet,extended release 24 hr RxNorm: 8 83344 1 Tablet(s) Oral two times a day as needed for headache 05/02/2020 05/02/2020 Inac tive prednisone 20 mg tablet RxNorm: 427996 1 Tablet(s) Oral two sherif es a day 05/01/2020 05/08/2020 Inactive Valtrex 1 gram tablet RxNorm: 535657 1 Tablet(s) Oral three sherif es a day 05/01/2020 05/08/2020 Inactive Lyrica 50 mg capsule RxNorm: 878154 1 Capsule(s) Oral QPM for n erve pain 04/27/2020 04/30/2020 Inactive Lyrica 50 mg capsule RxNorm: 989095 1 Capsule(s) Oral QPM for n erve pain 04/27/2020 04/26/2020 Inactive ketorolac 10 mg tablet RxNorm: 308039 1 Tablet(s) Oral four times a day as needed for pain with food 04/27/2020 04/30/2020 Inactive citalopram 20 mg tablet RxNorm: 568619 1 Tablet(s) Oral QD 03/12/20 20 05/21/2020 Inactive Loryna (28) 3 mg-0.02 mg tablet RxNorm: 7042221 1 Tablet (s) Oral Take as directed 03/12/2020 04/30/2020 Inactive Loryna (28) 3 mg-0.02 mg tablet RxNorm: 2670461 1 Tablet (s) Oral Take as directed 01/09/2020 03/11/2020 Inactive Loryna (28) 3 mg-0.02 mg tablet RxNorm: 9839152 1 Tablet (s) Oral Take as directed 01/09/2020 01/08/2020 Inactive citalopram 20 mg tablet RxNorm: 287608 1 Tablet(s) Oral QD 11/29/1903/11/2020 Inactive drospiren-e.estrad-l.mefol 3 mg-0.02 mg-0.451 mg(24)/0 .451 mg(4)tablet RxNorm: 1948753 1 Tablet(s) Oral QD 11/29/2019 04/30/2020 Inactive norethindrone (contraceptive) oral RxNorm: 7514 oral 02/14/2021 02/14/2021 Inactive Medication Administered No Medication Administered data Immunizations No Immunization data Results No Results data Procedures Procedure Codes Date URINALYSIS NONAUTO W/O SCOPE CPT-4: 72011 03/06/2021 URINE CULTURE/ COLONY COUNT CPT-4: 07133 03/06/2021 SARSCOV & INF VIR A&B AG IA CPT-4: 73503 03/06/2021 THER/PROPH/DIAG INJ SC/IM CPT-4: 61668 05/01/2020 KETOROLAC TROMETHAMINE INJ CPT-4: J1885 05/01/2020 THER/PROPH/DIAG INJ SC/IM CPT-4: 03832 05/01/2020 METHYLPREDNISOLONE INJECTION CPT-4: J2930 05/01/2020 ONDANSETRON HCL INJECTION CPT-4: J2405 05/01/2020 Vital Signs Date Vital 03/06/2021 Blood Pressure 1: 119/68 Code: 8480-6 Heart Rate 1: 97 bpm Respiratory Rate: 16 bpm SpO2: 98% Temperature: 36.4 (C) / 97.5 (F) We ight: 158 lbs Code: 06939-0 02/11/2021 Heart Rate 1: 84 bpm Respiratory Rate: 18 bpm SpO2: 99 % Temperature: 36.6 (C) / 97.8 (F) 11/20/2020 Blood Pressure 1: 117/68 Code: 8480-6 Heart Rate 1: 68 bpm Respiratory Rate: 16 bpm SpO2: 99% Temperature: 36.6 (C) / 97.8 (F) We ight: 161 lbs Code: 69294-2 10/30/2020 Blood Pressure 1: 124/74 Code: 8480-6 BMI: 27.6 Code: 04067-1 Heart Rate 1: 92 bpm Height: 5'4" Code: 8302-2 Respiratory Rate: 16 bpm SpO2: 99% Temperature: 36.4 (C) / 97.5 (F) Weight: 161 lbs Code: 82807-0 09/03/2020 Blood Pressure 1: 124/64 Code: 8480-6 BMI: 28.2 Code: 80849-2 Heart Rate 1: 92 bpm Height: 5'4" Code: 8302-2 Respiratory Rate: 22 bpm SpO2: 96% Temperature: 36.7 (C) / 98.0 (F) Weight: 164 lbs Code: 76886-6 07/24/2020 Blood Pressure 1: 132/76 Code: 8480-6 BMI: 28.7 Code: 25901-7 Heart Rate 1: 90 bpm Height: 5'4" Code: 8302-2 Respiratory Rate: 16 bpm SpO2: 99% Temperature: 36.5 (C) / 97.7 (F) Weight: 167 lbs Code: 34430-2 07/02/2020 Blood Pressure 1: 127/76 Code: 8480-6 Heart Rate 1: 98 bpm Respiratory Rate: 15 bpm SpO2: 98% Temperature: 36.3 (C) / 97.3 (F) We ight: 167 lbs Code: 14201-9 05/25/2020 Blood Pressure 1: 118/76 Code: 8480-6 BMI: 29.2 Code: 81147-2 Heart Rate 1: 92 bpm Height: 5'4" Code: 8302-2 Respiratory Rate: 20 bpm SpO2: 96% Temperature: 36.2 (C) / 97.1 (F) Weight: 170 lbs Code: 95602-6 05/01/2020 Blood Pressure 1: 114/86 Code: 8480-6 Heart Rate 1: 104 bpm Respiratory Rate: 22 bpm SpO2: 99% Temperature: 36.9 (C) / 98.4 (F) 04/27/2020 Blood Pressure 1: 119/64 Code: 8480-6 Heart Rate 1: 95 bpm Respiratory Rate: 16 bpm SpO2: 98% Temperature: 36.4 (C) / 97.5 (F) We ight: 165 lbs Code: 54052-2 11/29/2019 Blood Pressure 1: 104/76 Code: 8480-6 BMI: 26.8 Code: 09435-6 Heart Rate 1: 80 bpm Height: 5'4" Code: 8302-2 Respiratory Rate: 20 bpm SpO2: 98% Temperature: 36.4 (C) / 97.5 (F) Weight: 156 lbs Code: 84408-2 Functional Status No Functional Status data Reason [...] visit Encounters Encounter Performer Location Codes Date ([id number]) OFFICE/OUTPATIENT VISIT EST Diagnosis: Acute cystitis with hematuria[ICD10: N30.01] Diagnosis: Nasal congestion[ICD10: R09.81] Perla [employer] CPT-4: 47025 03/06/2021 ([id number]) OFFICE/OUTPATIENT VISIT EST Diagnosis: Cephalgia[ICD10: R51.9] Diagnosis: Right ear pain[ICD10: H92.01] Perla Kirby [employer] CPT-4: 40504 02/11/2021 ([id number]) OFFICE/OUTPATIENT VISIT EST Diagnosis: Vaccine counseling[ICD10: Z71.89] Perla BALDERAS [employer] CPT-4: 63263 11/20/2020 ([id number]) OFFICE/OUTPATIENT VISIT EST Diagnosis: Generalized anxiety disorder[ICD10: F41.1] Diagnosis: Depression[ICD10: F32.9] Diagnosis: School physical exam[ICD10: Z02.0] Perla K[employer] CPT-4: 52951 10/30/2020 ([id number]) OFFICE/OUTPATIENT VISIT EST Diagnosis: Left foot pain[ICD10: M79.672] Perla BALDERAS [employer] CPT-4: 63651 09/03/2020 ([id number]) OFFICE/OUTPATIENT VISIT EST Diagnosis: Cephalgia[ICD10: R51.9] Diagnosis: Generalized anxiety disorder[ICD10: F41.1] Perla MENDESLINE Christian[employer]real ROBBY [employer] CPT-4: 75924 07/24/2020 ([id number]) OFFICE/OUTPATIENT VISIT EST Diagnosis: Migraine aura, persistent, intractable, with status migrainosus[ICD10: G43.511] Diagnosis: Generalized anxiety disorder[ICD10: F41.1] Anusha MENDESLINE [employer] ROBBY [employer] CPT-4: 58272 07/02/2020 ([id number]) OFFICE/OUTPATIENT VISIT EST Diagnosis: Sinusitis[ICD10: J32.9] Anusha MENDESLINE [employer] TESSIE DEL CASTILLO [employer] CPT-4: 92595 05/25/2020 ([id number]) OFFICE/OUTPATIENT VISIT EST Diagnosis: Cephalgia[ICD10: R51.9] Diagnosis: Right sided numbness[ICD10: R20.0] Diagnosis: Nausea[ICD10: R11.0] Diagnosis: Right sided weakness[ICD10: R53.1] Bruna HEAD [employer] ROBBY [employer] CPT-4: 35823 05/01/2020 ([id number]) OFFICE/OUTPATIENT VISIT EST Diagnosis: Cephalgia[ICD10: R51.9] Anusha MENDESLINE [employer] TESSIE DEL CASTILLO [employer] CPT-4: 00313 04/27/2020 ([id number]) OFFICE/OUTPATIENT VISIT NEW Diagnosis: Endometriosis[ICD10: N80.9] Diagnosis: PCOS (polycystic ovarian syndrome)[ICD10: E28.2] Diagnosis: Depression[ICD10: F32.9] Diagnosis: Fatigue[ICD10: R53.83] Bruna WALKER [employer] JAMEELYESENIA R [employer] CPT-4: 18153 11/29/2019 Plan of Care Planned Activity Notes [...] discontinue in the past. 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 Patient states she [...] 02/11/2021 App[facility]ment: Per[facility] [phone] [facility] [facility] 02/11/2021 Patient Education: Patient Medication Summary Completed 02/11/2021 Visit Diagnosis Plan: Vaccine counseling Discussion: D iscussed contraindications, side effects, patient concerns on COVID vaccine- patient does not have any contraindications. Recommended COVID vaccine. Questions answered. Patient and mother voiced understanding. Print-outs given from [facility] website on MRNA vaccines and covid vaccine safety and side effects. ICD-9 : V65.49 ICD-10 : Z71.89 11/20/2020 Appointment: Perla Bowers WPtel: [phone] [facility] ACUTE ILLNESS 11/20/2020 Patient Education: Patient [...] 10/30/2020 Appointment: Perla Bowers WPtel: [phone] [facility] FOLLOW UP 10/30/2020 Patient Education: Patient Medication Summary Completed 10/30/2020 Patient Education: buspirone- OptimizeRX Coupon [phone] https://www.[employer]/samplemd/resources/getResource/61/[email or web address]-[email or web address]-[email or web address] Completed 10/30/2020 Visit Diagnosis Plan: Left foot [...] 09/03/2020 Appointment: Perla Bowers WPtel: [phone] [facility] ACUTE ILLNESS 09/03/2020 Patient Education: Patient Medication Summary Completed 09/03/2020 Care Plan: X-RAY EXAM OF FOOT LOINC : 26 095-0 Pending 09/03/2020 Appointment: Bruna Balderas [facility] [phone] [id number] RESCHEDULED 07/30/2020 Visit Diagnosis Plan: Cephalgia [...] : R51.9 07/24/2020 Appointment: Perla Bowers WPtel: [phone] [facility] FOLLOW UP 07/24/2020 Patient Education: Patient Medication Summary Completed 07/24/2020 Appointment: Anusha Chapin [address] RESCHEDULED 07/16/2020 Visit Diagnosis Plan: [...] ICD-10 : F41.1 07/02/2020 Appointment: Anusha Chapin [address] [place], [place] [id number] ACUTE ILLNESS 07/02/2020 Patient Education: propranolol- OptimizeRX Coupon [phone] https://www.[employer]/[facility]/resources/getResource/61/[email or web address]-[email or web address]-[email or web address] Completed 07/02/2020 Visit Diagnosis Plan: Sinusitis Discussion: stop the m ucinex but continue with otc allergy meds. augmentin to cover for bacterial sinus infection but instructed patient to get tested for COVID. instructed her to contact [facility] for testing. patient verbalized understanding. ICD-9 : 473.9 ICD-10 : J32.9 05/25/2020 Appointment: Anusha Chapin [address] [place], [place] [address] ACUTE ILLNESS 05/25/2020 Visit Diagnosis Plan: Right [...] [facility]una [facility] [phone] [facility] [facility] Follow Up 05/01/2020 Patient Education: prednisone- OptimizeRX Coupon [phone] https://www.[employer]/[facility]/resources/getResource/61/[email or web address]-cb Completed 05/01/2020 Patient Education: Valtrex- OptimizeRX Coupon [id number] https://www.[employer]/resources/getResource/61/[email or web address]-[email or web address] Completed 05/01/2020 Care Plan: Referral Order SNOMED-CT : 30 1180948 Pending 05/01/2020 Visit Diagnosis Plan: Cephalgia Discussion: [...] ICD-10 : R51.9 04/27/2020 Appointment: Anusha Chapin [address] [place] [address] ACUTE ILLNESS 04/27/2020 Patient Education: ketorolac- OptimizeRX Coupon [phone] https://www.[employer]/resources/getResource/61/81640168-oq87-33t3-dx Completed 04/27/2020 Visit Diagnosis Plan: Depression Discussion: Stable on citalopram Follow Up: 6 months ICD-9 : 311 ICD-10 : F32.9 11/29/2019 Visit Diagnosis Plan: Fatigue Discussion: Check CBC, T SH, Free T4, CMP, iron/ferritin, insulin levels ICD-9 : 780.79 ICD-10 : R53.83 11/29/2019 Visit Diagnosis Plan: Endometriosis Discussion: Follow s with PUBLIC SPEAKING TEACHER ICD-9 : 617.9 ICD-10 : N80.9 11/29/2019 Appointment: Bruna Balderas WPtel: [phone] NEW PATIENT 11/29/2019 [facility]: [facility] [address] [place], [place] [id number] Referral Appointment Requested Instructions Comment . Supportive [...]
--- NOTE | 2021-04-11 23:52 | ED Back Pain ---
General Chief Complaint: - Reproductive Stated Complaint: ABD & BACK PAIN Nursing Triage Note: PT AMB TO ED WITH C/O SEVERE LOWER ABD PAIN. PT HAS HX ENDOMETRIOSIS AND PCOS AND HAS BEEN HAVING ABD PAIN FOR 3 MONTHS. REPORTS SHE HAD A TRANSVAGINAL US YESTERDAY AND HAS A FOLLOW UP APPOINTMENT SCHEDULED WITH HER GYNO ON 04/29, BUT REPORTS THE PAIN IS TOO SEVERE TO WAIT. REPORTS NAUSEA AND OVERACTIVE BLADDER. Source of Information: Patient Exam Limitations: No Limitations History of Present Illness Date Seen by Provider: Apr 11, 2021 Time Seen by Provider: 23:22 Initial Comments Patient to the ER by private conveyance chief complaint that she been having some chronic back pain she usually associates with her endometritis it is progressively getting worse over the past week or so. She used to follow Dr. Vargas. She started following with [facility] and had an ultrasound yesterday but has not heard the results yet. She feels like she had an ovarian cyst rupture a couple days ago although that is getting better. She is having some dysuria. She has a UTI a month ago. Is been using Tylenol 1000 mg at a time without relief of pain. Has not had ibuprofen over the past 6 to 8 hours. No fevers or chills nausea or vomiting. She has PCOS and scarring on her fallopian tubes. Allergies and Home Medications Allergies Coded Allergies: azithromycin (Verified Allergy, Unknown, RASH, 02/11/19) Patient Home Medication List Home Medication List Reviewed: Yes Citalopram Hydrobromide (Celexa) 20 Mg Tablet, 20 MG PO DAILY, (Reported) Entered as Reported by: TRINA JAEGER on 02/11/19 1346 Ethinyl Estradiol/Drospirenone (Loryna 3 mg-0.02 mg Tablet) 1 Each Tablet, (Reported) Entered as Reported by: GISSELLE JOYCE on 04/30/20 1033 Ibuprofen (Ibuprofen) 800 Mg Tablet, 800 MG PO Q6H PRN for PAIN Prescribed by: MEG MARTINO on 02/11/19 1529 Ketorolac Tromethamine (Ketorolac Tromethamine) 10 Mg Tablet, (Reported) Entered as Reported by: GISSELLE JOYCE on 04/30/20 1033 Oxybutynin Chloride (Oxybutynin Chloride ER) 10 Mg Tab.er.24, (Reported) Entered as Reported by: GISSELLE JOYCE on 04/30/20 1033 Oxycodone HCl/Acetaminophen (Percocet 5-325 mg Tablet) 1 Each Tablet, 1 TAB PO Q4H Prescribed by: MEG MARTINO on 02/11/19 1529 Prednisone (Prednisone) 20 Mg Tab, 40 MG PO DAILY Prescribed by: TRE HALEY on 04/30/20 1223 Pregabalin (Pregabalin) 50 Mg Capsule, (Reported) Entered as Reported by: GISSELLE JOYCE on 04/30/20 1033 [ Control] , PO DAILY, (Reported) Entered as Reported by: TRINA JAEGER on 02/11/19 1347 Review of Systems Constitutional: No chills, No diaphoresis EENTM: No ear discharge, No ear pain Respiratory: No cough, No short of breath Cardiovascular: No chest pain, No palpitations Gastrointestinal: abdominal pain; No diarrhea, No nausea Genitourinary: No decreased output, No discharge; dysuria : No Control/STD Prophylaxis: BC Pills Musculoskeletal: back pain; No joint pain All Other Systems Reviewed Negative Unless Noted: Yes Past Mpanlui-Klzcar-Huiolu Hx Patient Social History Tobacco Use?: No Use of E-Cig and/or Vaping dev: No Seasonal Allergies Seasonal Allergies: Yes Past Medical History Surgeries: Yes (EYE LID SURGERY TO REMOVE BLOOD VESSEL.DX LAPAROSCOPY FOR CREDIT AUTHORIZER COMPLAINTS) Appendectomy Respiratory: Yes Asthma Cardiac: No Neurological: No Female Reproductive Disorders: Menstrual Problems, Endometriosis, Ovarian Cyst Sexually Transmitted Disease: Yes (HX OF CHLAMYDIA) Genitourinary: No Gastrointestinal: No Musculoskeletal: No Endocrine: No HEENT: No (CHRONIC SINUS AND EAR INFECTIONS A YOUNG CHILD. ) Chronic Ear Infection, Tonsilitis Cancer: No Psychosocial: Yes Anxiety, Depression Integumentary: No Blood Disorders: No Physical Exam Vital Signs Vital Signs - First Documented 04/11/21 23:15 Temp 36.5 Pulse 85 Resp 16 B/P (MAP) 126/84 (98) Pulse Ox 99 O2 Delivery Room Air Capillary Refill : Less Than 3 Seconds Height, Weight, BMI Height: '" Weight: lbs. oz. kg; 27.00 BMI Method: General Appearance: No Apparent Distress, WD/WN HEENT: PERRL/EOMI, Pharynx Normal, Moist Mucous Membranes Neck: Full Range of Motion, Normal Inspection Cardiovascular: Regular Rate, Rhythm, Normal Peripheral Pulses Respiratory: No Accessory Muscle Use, No Respiratory Distress Gastrointestinal: Normal Bowel Sounds, Non Tender, Soft Back: Normal Inspection, No Vertebral Tenderness Extremity: Normal Capillary Refill, Normal Inspection Neurologic/Psychiatric: Alert, Oriented x3 Progress/Results/Core Measures Results/Orders Lab Results Laboratory Tests Test 04/11/21 23:18 Range/Units Urine Color YELLOW Urine Clarity CLEAR Urine pH 6.0 5-9 Urine Specific [place] >=1.030 1.016-1.022 Urine Protein NEGATIVE NEGATIVE Urine Glucose (UA) NEGATIVE NEGATIVE Urine Ketones NEGATIVE NEGATIVE Urine Nitrite NEGATIVE NEGATIVE Urine Bilirubin NEGATIVE NEGATIVE Urine Urobilinogen 0.2 < = 1.0 MG/DL Urine Leukocyte Esterase NEGATIVE NEGATIVE Urine RBC (Auto) NEGATIVE NEGATIVE Urine RBC NONE /HPF Urine WBC 0-2 /HPF Urine Squamous Epithelial Cells 5-10 /HPF Urine Crystals NONE /LPF Urine Bacteria TRACE /HPF Urine Casts NONE /LPF Urine Mucus SMALL H /LPF Urine Culture Indicated NO My Orders Orders - JASON LOVING Urine Bedside (04/11/21 23:26) Ketorolac Injection (Toradol Injection) (04/12/21 00:00) Ketorolac Injection (Toradol Injection) (04/12/21 00:30) Ua Culture If Indicated (04/12/21 00:34) Medications Given in ED Current Medications Medications Dose Ordered Sig/Radhames Route Start Time Stop Time Status Last Admin Dose Admin Ketorolac Tromethamine 30 mg ONCE ONCE IVP 04/12/21 00:30 04/12/21 00:31 DC 04/12/21 00:28 30 MG Vital Signs/I&O 04/11/21 23:15 Temp 36.5 Pulse 85 Resp 16 B/P (MAP) 126/84 (98) Pulse Ox 99 O2 Delivery Room Air Blood Pressure Mean: 98 Progress Progress Note #1: Time: 23:51 Progress Note Toradol IM, urinalysis and bedside . We will set her up with some appropriate pain management outpatient while she gets back in with Dr. Vargas per her wishes. Patient is okay with this plan. Aseptic vital signs. Progress Note #2: Time: 01:19 Progress Note Pain went from an 8 to a 4. We will send her out with some diclofenac and follow-up with Dr. Vargas. Departure Impression Primary Impression: Chronic back pain Qualified Codes: M54.50 - Low back pain, unspecified; G89.29 - Other chronic pain Additional Impression: History of endometriosis Disposition: HOME, SELF-CARE Condition: Stable Departure-Patient Inst. Decision time for Depature: 01:15 Referrals: MEG VARGAS MD, JACQUELINE S DO (PCP/Family) Primary Care Physician Patient Instructions: Endometriosis, Low Back Pain (DC) Add. Discharge Instructions: Instead of ibuprofen if you would like you can use the diclofenac 1 tablet 3 times a day as necessary for the next 3 days to control your pain. Heating pads, topical creams etc. Tylenol 1000 mg every 8 hours as necessary for pain. Drink lots of fluids. Call Dr. Vargas in the morning and request a follow-up appointment. All discharge instructions reviewed with patient and/or family. Voiced understanding. Scripts Diclofenac Sodium (Diclofenac Sodium) 50 Mg Tablet. 50 MG PO TID PRN for pain, #10 TAB 0 Refills Prov: JASON LOVING 04/12/21 Work/School Note: Work Release Form Date Seen in the Emergency Department: Apr 12, 2021 Return to Work: Apr 13, 2021 Restrictions: Need Release from Doctor Other Restrictions Listed Below: Do not lift greater than 20 pounds until 04/22/2021. Copy Copies To 1: MEG VARGAS MD, TITUS J Apr 11, 2021 23:52
[2021-04-12] MEDS ORDERED: KETOROLAC 60 MG/2 ML VIAL IM ONE
[2021-04-12] MEDS ORDERED: KETOROLAC 30 MG/ML VIAL IVP ONE (00:30)
[2021-04-12 00:54] LABS: BILIRUBIN,URINE NEGATIVE (NEGATIVE); CLARITY,URINE CLEAR; COLOR,URINE YELLOW; GLUCOSE, URINE (UA) NEGATIVE (NEGATIVE); KETONES,URINE NEGATIVE (NEGATIVE); LEUKOCYTE ESTERASE ,URINE NEGATIVE (NEGATIVE); NITRITE,URINE NEGATIVE (NEGATIVE); PROTEIN,URINE NEGATIVE (NEGATIVE)
[2021-04-12 01:04] LABS: BACTERIA,URINE TRACE /HPF; WBC,URINE 0-2 /HPF
[2021-04-12] MEDS ORDERED: DICL50TA6 PO (01:21)
[2021-04-12 01:30] VITALS: BP 121/78
[2021-04-13] MEDS ORDERED: NA P133E22 RC (13:30)
[2021-04-13] MEDS ORDERED: MAGN296S71 PO (13:30)
== END 2021-04-12 01:30 | disposition home or self-care (01) ==
LOC: EDUNIT# 23:05 → ER 23:09
DX: G89.29 Other chronic pain (principal); M54.9 Dorsalgia, unspecified; J45.909 Unspecified asthma, uncomplicated; F41.9 Anxiety disorder, unspecified; F32.9 Major depressive disorder, single episode, unspecified; Z79.899 Other long term (current) drug therapy
CPT/HCPCS: 81000; 84703; 99282

== ENCOUNTER 2021-04-13 11:26 | Emergency (ER) | payer BC ==
[~2021-04-13] VITALS: Ht 162.5 cm; Wt 73.4 kg
[~2021-04-13 11:26] MED LIST changes: +DICL50TA6 PO
--- NOTE | 2021-04-13 11:44 | ED GI ---
General Chief Complaint: Abdominal/GI Problems Stated Complaint: LOWER ABD/BACK PAIN Source of Information: Patient Exam Limitations: No Limitations History of Present Illness Date Seen by Provider: Apr 13, 2021 Time Seen by Provider: 11:41 Initial Comments To ER with persistent suprapubic abdominal pain and inability to have a bowel m ovement. Pain has been worse than usual for about 2 to 3 days. Has a history of endometriosis and underwent laparoscopic treatment in 2019 with temporary improvement in symptoms. She recently changed control. She is scheduled to see Dr. Vargas on Thursday of this week. No fevers or chills. Timing/Duration: 1-2 Days Severity/Quality: Moderate Location: Suprapubic Radiation: No Radiation Associated Symptoms: Denies Symptoms Allergies and Home Medications Allergies Coded Allergies: azithromycin (Verified Allergy, Unknown, RASH, 02/11/19) Patient Home Medication List Home Medication List Reviewed: Yes Citalopram Hydrobromide (Celexa) 20 Mg Tablet, 20 MG PO DAILY, (Reported) Entered as Reported by: TRINA JAEGER on 02/11/19 1346 Diclofenac Sodium (Diclofenac Sodium) 50 Mg Tablet.dr, 50 MG PO TID PRN for pain Prescribed by: JASON LOVING on 04/12/21 0121 Ethinyl Estradiol/Drospirenone (Loryna 3 mg-0.02 mg Tablet) 1 Each Tablet, (Reported) Entered as Reported by: GISSELLE JOYCE on 04/30/20 1033 Ibuprofen (Ibuprofen) 800 Mg Tablet, 800 MG PO Q6H PRN for PAIN Prescribed by: MEG MARTINO on 02/11/19 1529 Ketorolac Tromethamine (Ketorolac Tromethamine) 10 Mg Tablet, (Reported) Entered as Reported by: GISSELLE JOYCE on 04/30/20 1033 Magnesium Citrate (Magnesium Citrate) 296 Ml Solution, 296 ML PO ONCE Prescribed by: PIO VELASCO on 04/13/21 1330 Na Phos,M-B/Na Phos,Di-Ba (Fleet Enema) 133 Ml Enema, 133 ML RC ONCE Prescribed by: PIO VELASCO on 04/13/21 1330 Oxybutynin Chloride (Oxybutynin Chloride ER) 10 Mg Tab.er.24, (Reported) Entered as Reported by: GISSELLE JOYCE on 04/30/20 1033 Oxycodone HCl/Acetaminophen (Percocet 5-325 mg Tablet) 1 Each Tablet, 1 TAB PO Q4H Prescribed by: MEG MARTINO on 02/11/19 1529 Prednisone (Prednisone) 20 Mg Tab, 40 MG PO DAILY Prescribed by: TRE HALEY on 04/30/20 1223 Pregabalin (Pregabalin) 50 Mg Capsule, (Reported) Entered as Reported by: GISSELLE JOYCE on 04/30/20 1033 [ Control] , PO DAILY, (Reported) Entered as Reported by: TRINA JAEGER on 02/11/19 1347 Review of Systems Review of Systems Constitutional: see HPI EENTM: No Symptoms Reported Respiratory: No Symptoms Reported Cardiovascular: No Symptoms Reported Gastrointestinal: See HPI, Abdominal Pain Genitourinary: No Symptoms Reported Musculoskeletal: no symptoms reported Skin: no symptoms reported Psychiatric/Neurological: No Symptoms Reported Endocrine: No Symptoms Reported Hematologic/Lymphatic: No Symptoms Reported Past Hmmhkdo-Ycxvvd-Dhftiq Hx Immunizations Up To Date First/Initial COVID19 Vaccinat: NOVEMBER 2020 Second COVID19 Vaccination Malik: DEC 2020 Seasonal Allergies Seasonal Allergies: Yes Past Medical History Surgery/Hospitalization HX: PCOS, ENDOMETERIOSIS Surgeries: Yes (EYE LID SURGERY TO REMOVE BLOOD VESSEL.DX LAPAROSCOPY FOR FINISHER HAND COMPLAINTS) Appendectomy Respiratory: Yes Asthma Cardiac: No Neurological: No Female Reproductive Disorders: Menstrual Problems, Endometriosis, Ovarian Cyst Sexually Transmitted Disease: Yes (HX OF CHLAMYDIA) Genitourinary: No Gastrointestinal: No Musculoskeletal: No Endocrine: No HEENT: No (CHRONIC SINUS AND EAR INFECTIONS A YOUNG CHILD. ) Chronic Ear Infection, Tonsilitis Cancer: No Psychosocial: Yes Anxiety, Depression Integumentary: No Blood Disorders: No Physical Exam Vital Signs Vital Signs - First Documented 04/13/21 11:32 Temp 36.4 Pulse 86 Resp 18 B/P (MAP) 143/87 (105) Pulse Ox 98 O2 Delivery Room Air Capillary Refill : Height/Weight/BMI Height: '" Weight: lbs. oz. kg; 27.00 BMI Method: General Appearance: WD/WN, no apparent distress Neck: non-tender, full range of motion Respiratory: no respiratory distress, no accessory muscle use Cardiovascular: regular rate, rhythm, no murmur Gastrointestinal: normal bowel sounds, soft, tenderness Extremities: normal range of motion, non-tender Neurologic/Psychiatric: alert, normal mood/affect, oriented x 3 Skin: normal color, warm/dry Progress/Results/Core Measures Results/Orders Lab Results Laboratory Tests Test 04/13/21 11:35 04/13/21 11:50 Range/Units White Blood Count 7.6 4.3-11.0 10^3/uL Red Blood Count 4.68 3.80-5.11 10^6/uL Hemoglobin 13.5 11.5-16.0 g/dL Hematocrit 40 35-52 % Mean Corpuscular Volume 85 80-99 fL Mean Corpuscular Hemoglobin 29 25-34 pg Mean Corpuscular Hemoglobin Concent 34 32-36 g/dL Red Cell Distribution Width 12.5 10.0-14.5 % Platelet Count 279 130-400 10^3/uL Mean Platelet Volume 9.3 9.0-12.2 fL Immature Granulocyte % (Auto) 0 % Neutrophils (%) (Auto) 62 42-75 % Lymphocytes (%) (Auto) 28 12-44 % Monocytes (%) (Auto) 7 0-12 % Eosinophils (%) (Auto) 3 0-10 % Basophils (%) (Auto) 1 0-10 % Neutrophils # (Auto) 4.7 1.8-7.8 10^3/uL Lymphocytes # (Auto) 2.1 1.0-4.0 10^3/uL Monocytes # (Auto) 0.5 0.0-1.0 10^3/uL Eosinophils # (Auto) 0.3 0.0-0.3 10^3/uL Basophils # (Auto) 0.0 0.0-0.1 10^3/uL Immature Granulocyte # (Auto) 0.0 0.0-0.1 10^3/uL Sodium Level 140 135-145 MMOL/L Potassium Level 3.7 3.6-5.0 MMOL/L Chloride Level 108 H 98-107 MMOL/L Carbon Dioxide Level 21 21-32 MMOL/L Anion Gap 11 5-14 MMOL/L Blood Urea Nitrogen 6 L 7-18 MG/DL Creatinine 0.69 0.60-1.30 MG/DL Estimat Glomerular Filtration Rate 110 BUN/Creatinine Ratio 9 Glucose Level 90 70-105 MG/DL Calcium Level 9.0 8.5-10.1 MG/DL Corrected Calcium 8.9 8.5-10.1 MG/DL Total Bilirubin 0.8 0.1-1.0 MG/DL Aspartate Amino Transf (AST/SGOT) 20 5-34 U/L Alanine Aminotransferase (ALT/SGPT) 23 0-55 U/L Alkaline Phosphatase 62 40-136 U/L C-Reactive Protein High Sensitivity 0.33 0.00-0.50 MG/DL Total Protein 7.0 6.4-8.2 GM/DL Albumin 4.1 3.2-4.5 GM/DL Serum Test, Qualitative NEGATIVE NEGATIVE Urine Color YELLOW Urine Clarity CLEAR Urine pH 6.0 5-9 Urine Specific [place] <=1.005 1.016-1.022 Urine Protein NEGATIVE NEGATIVE Urine Glucose (UA) NEGATIVE NEGATIVE Urine Ketones NEGATIVE NEGATIVE Urine Nitrite NEGATIVE NEGATIVE Urine Bilirubin NEGATIVE NEGATIVE Urine Urobilinogen 0.2 < = 1.0 MG/DL Urine Leukocyte Esterase NEGATIVE NEGATIVE Urine RBC (Auto) TRACE-I H NEGATIVE Urine RBC 0-2 /HPF Urine WBC NONE /HPF Urine Squamous Epithelial Cells 2-5 /HPF Urine Crystals NONE /LPF Urine Bacteria TRACE /HPF Urine Casts NONE /LPF Urine Mucus NEGATIVE /LPF Urine Culture Indicated NO My Orders Orders - PIO VELASCO LOW PRESSURE BOILER OPERATOR Cbc With Automated Diff (04/13/21 11:36) Hs C Reactive Protein (04/13/21 11:36) Hcg,Qualitative Serum (04/13/21 11:36) Ed Iv/Invasive Line Start (04/13/21 11:36) Ua Culture If Indicated (04/13/21 11:36) Ct Abdomen/Pelvis W (04/13/21 11:36) Comprehensive Metabolic Panel (04/13/21 11:36) Ketorolac Injection (Toradol Injection) (04/13/21 11:45) Hydrocodone/Apap 5/325 Tablet (Lortab 5 (04/13/21 11:45) Iohexol Injection (Omnipaque 350 Mg/Ml 1 (04/13/21 11:45) Received Contrast (Hold Metformin- Contr (04/13/21 11:45) Ns (Ivpb) (Sodium Chloride 0.9% Ivpb Bag (04/13/21 11:45) Sodium Chloride Flush (Catheter Flush Sy (04/13/21 11:45) Fentanyl Inj (Sublimaze Injection) (04/13/21 13:30) Medications Given in ED Current Medications Medications Dose Ordered Sig/Radhames Route Start Time Stop Time Status Last Admin Dose Admin Acetaminophen/ Hydrocodone Bitart 1 ea ONCE ONCE PO 04/13/21 11:45 04/13/21 11:46 DC 04/13/21 11:45 1 EA Fentanyl Citrate 50 mcg ONCE ONCE IVP 04/13/21 13:30 04/13/21 13:31 DC 04/13/21 13:30 50 MCG Iohexol 100 ml ONCE ONCE IV 04/13/21 11:45 04/13/21 11:49 DC 04/13/21 12:50 97 ML Ketorolac Tromethamine 15 mg ONCE ONCE IVP 04/13/21 11:45 04/13/21 11:46 DC 04/13/21 11:45 15 MG Sodium Chloride 10 ml NEEDED PRN IV 04/13/21 11:45 04/13/21 12:50 10 ML Sodium Chloride 100 ml ONCE ONCE IV 04/13/21 11:45 04/13/21 11:49 DC 04/13/21 12:50 80 ML Vital Signs/I&O 04/13/21 11:32 Temp 36.4 Pulse 86 Resp 18 B/P (MAP) 143/87 (105) Pulse Ox 98 O2 Delivery Room Air Departure Impression Primary Impression: Constipation Additional Impression: History of endometriosis Disposition: 01 HOME, SELF-CARE Condition: Stable Departure-Patient Inst. Decision time for Depature: 13:27 Referrals: AARON BUSTAMANTE DO (PCP/Family) Primary Care Physician Patient Instructions: Constipation, Adult ED Add. Discharge Instructions: 1. Drink the laxative as directed when you get home. If this fails to result in a bowel movement then use the enema as prescribed. Resolution of this constipation should help significantly with your lower abdominal pain. All discharge instructions reviewed with patient and/or family. Voiced understanding. Scripts Na Phos,M-B/Na Phos,Di-Ba (Fleet Enema) 133 Ml Enema 133 ML RC ONCE, #1 EA Prov: PIO VELASCO LOW PRESSURE BOILER OPERATOR 04/13/21 Magnesium Citrate (Magnesium Citrate) 296 Ml Solution 296 ML PO ONCE, #1 EA Prov: PIO VELASCO LOW PRESSURE BOILER OPERATOR 04/13/21 PIO VELASCO LOW PRESSURE BOILER OPERATOR Apr 13, 2021 11:44
[2021-04-13] MEDS ORDERED: IOHEXOL 350 MG/ML 100 ML (OMNIPAQUE 350) VIAL IV ONE (11:45)
[2021-04-13] MEDS ORDERED: HYDROcodone/APAP 5 MG/325 MG (LORTAB) TAB PO ONE (11:45)
[2021-04-13] MEDS ORDERED: KETOROLAC 30 MG/ML VIAL IVP ONE (11:45)
[2021-04-13] MEDS ORDERED: HOLD METFORMIN - RECEIVED CONTRAST 20 ML VIAL IV SCH (11:45)
[2021-04-13] MEDS ORDERED: CATHETER FLUSH 10 ML SYR IV PRN (11:45)
[2021-04-13] MEDS ORDERED: NS 100 ML (IVPB) BAG IV ONE (11:45)
[2021-04-13 11:47] LABS: BASOPHILS % (AUTO) 1 % (0-10); EOSINOPHILS # (AUTO) 0.3 10^3/uL (0.0-0.3); EOSINOPHILS % (AUTO) 3 % (0-10); HEMATOCRIT 40 % (35-52); HEMOGLOBIN 13.5 g/dL (11.5-16.0); LYMPHOCYTES # (AUTO) 2.1 10^3/uL (1.0-4.0); LYMPHOCYTES % (AUTO) 28 % (12-44); MEAN CORPUSCULAR HEMOGLOBIN 29 pg (25-34); MEAN CORPUSCULAR HGB CONC 34 g/dL (32-36); MEAN CORPUSCULAR VOLUME 85 fL (80-99); MEAN PLATELET VOLUME 9.3 fL (9.0-12.2); MONOCYTES # (AUTO) 0.5 10^3/uL (0.0-1.0); MONOCYTES % (AUTO) 7 % (0-12); NEUTROPHILS # (AUTO) 4.7 10^3/uL (1.8-7.8); NEUTROPHILS % (AUTO) 62 % (42-75); PLATELET COUNT 279 10^3/uL (130-400); WHITE BLOOD COUNT 7.6 10^3/uL (4.3-11.0)
[2021-04-13 11:59] LABS: BILIRUBIN,URINE NEGATIVE (NEGATIVE); CLARITY,URINE CLEAR; COLOR,URINE YELLOW; GLUCOSE, URINE (UA) NEGATIVE (NEGATIVE); KETONES,URINE NEGATIVE (NEGATIVE); LEUKOCYTE ESTERASE ,URINE NEGATIVE (NEGATIVE); NITRITE,URINE NEGATIVE (NEGATIVE); PROTEIN,URINE NEGATIVE (NEGATIVE)
[2021-04-13 12:01] LABS: ALBUMIN 4.1 GM/DL (3.2-4.5); POTASSIUM 3.7 MMOL/L (3.6-5.0)
[2021-04-13 12:05] LABS: BILIRUBIN,TOTAL 0.8 MG/DL (0.1-1.0)
[2021-04-13 12:07] LABS: CREATININE SERUM 0.69 MG/DL (0.60-1.30)
[2021-04-13 12:12] LABS: BACTERIA,URINE TRACE /HPF; RBC,URINE 0-2 /HPF
--- NOTE | 2021-04-13 13:25 | Diagnostic Imaging Report ---
PROCEDURE: CT abdomen and pelvis with contrast. TECHNIQUE: Multiple contiguous axial images were obtained through the abdomen and pelvis after administration of intravenous contrast. Auto Exposure Controls were utilized during the CT exam to meet ALARA standards for radiation dose reduction. All CT scans use one or more of the following dose optimizing techniques: automated exposure control, MA and/or KvP adjustment based on patient size and exam type or iterative reconstruction. INDICATION: Lower abdominal and pelvic pain. No relevant comparison available. FINDINGS: The lung bases demonstrate no consolidation or findings of pneumonia or edema. There is no effusion or pericardial collection. Liver demonstrates no focal intrahepatic abnormality. The portal veins are patent. The gallbladder is nondistended without radiodense gallstones or findings of biliary dilatation. The pancreas is unremarkable. The spleen is normal in size. There is no adrenal mass. The kidneys enhance normally and are nonobstructed. There are no findings of bowel obstruction. There is no abnormal bowel thickening demonstrated. There is no evidence of an appendicitis. There are surgical sutures within the right lower quadrant suggesting a prior appendectomy. There is a moderate to large degree of stool present within the colon. The urinary bladder, uterus and adnexa unremarkable by CT. There is no free fluid. There is no abdominal or pelvic adenopathy. There is no focal inflammation within the omentum or mesentery. The aorta is normal in caliber. There is no acute or suspicious osseous abnormality evident. IMPRESSION: 1. No CT findings of an acute inflammatory or obstructive process within the abdomen or pelvis. 2. Moderate to large degree of stool within the colon. 3. Probable previous appendectomy. Dictated by: Dictated on workstation # [id number]
[2021-04-13] MEDS ORDERED: NA P133E22 RC (13:30)
[2021-04-13] MEDS ORDERED: fentaNYL INJ 100 MCG/2 ML AMP IVP ONE (13:30)
[2021-04-13] MEDS ORDERED: MAGN296S71 PO (13:30)
[2021-04-13 13:49] VITALS: BP 114/81
== END 2021-04-13 13:53 | disposition home or self-care (01) ==
LOC: EDUNIT# 11:26 → ER 11:28
DX: K59.00 Constipation, unspecified (principal); J45.909 Unspecified asthma, uncomplicated; F41.9 Anxiety disorder, unspecified; F32.9 Major depressive disorder, single episode, unspecified; Z79.899 Other long term (current) drug therapy
CPT/HCPCS: 36415; 74177; 80053; 81000; 84703; 85025; 86141

== ENCOUNTER 2021-04-14 12:38 | Emergency (ER) | payer BC ==
[~2021-04-14] VITALS: Ht 162 cm; Wt 72.5 kg
[~2021-04-14 12:38] MED LIST changes: +MAGN296S71 PO; +NA P133E22 RC
[2021-04-14 13:36] LABS: BILIRUBIN,URINE NEGATIVE (NEGATIVE); CLARITY,URINE CLOUDY; COLOR,URINE YELLOW; GLUCOSE, URINE (UA) NEGATIVE (NEGATIVE); KETONES,URINE NEGATIVE (NEGATIVE); LEUKOCYTE ESTERASE ,URINE TRACE (NEGATIVE); NITRITE,URINE NEGATIVE (NEGATIVE); PH,URINE 8.5 (5-9); PROTEIN,URINE TRACE (NEGATIVE)
--- NOTE | 2021-04-14 13:42 | ED GI ---
General Chief Complaint: Abdominal/GI Problems Stated Complaint: VOMITING Nursing Triage Note: Pt to ED c/o vomiting and abd pain. Pt states she has been seen in the ED, dx with constipated and pain d/t endometreosis. Pt is to seen her OBGYN tomorrow. Reports increased vomiting despite zofran. Source of Information: Patient, Family Exam Limitations: No Limitations (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) History of Present Illness Date Seen by Provider: Apr 14, 2021 Time Seen by Provider: 13:40 Initial Comments Patient is a 20-year-old female with a history of appendectomy, endometriosis who presents ED with lower abdominal cramping, vomiting. Patient states she has had pain over the past 2 or 3 days. She was seen here in the ER yesterday with a negative CT abdomen pelvis for acute abdomen. Noted to have stool. She took a enema last night with a small bowel movement. She reports vomiting at 9+ episodes since last night. She took magnesium citrate and immediately vomit. Continue lower abdominal cramping. Decreased urination. She states she feels dehydrated. Scheduled to follow-up with gynecology tomorrow for further evaluation of her endometriosis. Denies fever, chest pain, cough, headache, dizziness. Not concern for . She states she started her menstrual cycle today with vaginal bleeding. History of normal menstrual cycles. Patient has been taken meloxicam at home without much improvement. Was not able to tolerate Zofran. (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) Allergies and Home Medications Allergies Coded Allergies: azithromycin (Verified Allergy, Unknown, RASH, 02/11/19) Patient Home Medication List Home Medication List Reviewed: Yes (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) Citalopram Hydrobromide (Celexa) 20 Mg Tablet, 20 MG PO DAILY, (Reported) Entered as Reported by: TRINA JAEGER on 02/11/19 1346 Diclofenac Sodium (Diclofenac Sodium) 50 Mg Tablet.dr, 50 MG PO TID PRN for pain Prescribed by: JASON LOVING on 04/12/21 0121 Ethinyl Estradiol/Drospirenone (Loryna 3 mg-0.02 mg Tablet) 1 Each Tablet, (Reported) Entered as Reported by: GISSELLE JOYCE on 04/30/20 1033 Ibuprofen (Ibuprofen) 800 Mg Tablet, 800 MG PO Q6H PRN for PAIN Prescribed by: MEG MARTINO on 02/11/19 1529 Ketorolac Tromethamine (Ketorolac Tromethamine) 10 Mg Tablet, (Reported) Entered as Reported by: GISSELLE JOYCE on 04/30/20 1033 Magnesium Citrate (Magnesium Citrate) 296 Ml Solution, 296 ML PO ONCE Prescribed by: PIO VELASCO on 04/13/21 1330 Na Phos,M-B/Na Phos,Di-Ba (Fleet Enema) 133 Ml Enema, 133 ML RC ONCE Prescribed by: PIO VELASCO on 04/13/21 1330 Oxybutynin Chloride (Oxybutynin Chloride ER) 10 Mg Tab.er.24, (Reported) Entered as Reported by: GISSELLE JOYCE on 04/30/20 1033 Oxycodone HCl/Acetaminophen (Percocet 5-325 mg Tablet) 1 Each Tablet, 1 TAB PO Q4H Prescribed by: MEG MARTINO on 02/11/19 1529 Prednisone (Prednisone) 20 Mg Tab, 40 MG PO DAILY Prescribed by: TRE HALEY on 04/30/20 1223 Pregabalin (Pregabalin) 50 Mg Capsule, (Reported) Entered as Reported by: GISSELLE JOYCE on 04/30/20 1033 [ Control] , PO DAILY, (Reported) Entered as Reported by: TIRNA JAEGER on 02/11/19 1347 Review of Systems Review of Systems Constitutional: No chills, No dizziness, No fever EENTM: No Eye Pain, No Ear Pain, No Throat Pain Respiratory: Denies Cough, Denies SOA With Exertion Cardiovascular: Denies Chest Pain, Denies Edema Gastrointestinal: Abdominal Pain, Constipated, Nausea, Vomiting Genitourinary: Denies Burning, Denies Discharge Musculoskeletal: No back pain, No muscle pain (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) All Other Systems Reviewed Negative Unless Noted: Yes (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) Past Wwnamvt-Dqvvsl-Zkbmtx Hx Patient Social History Tobacco Use?: No Substance use?: No Alcohol 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?: No (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) Immunizations Up To Date Influenza Vaccine Up-to-Date: Yes; Up-to-Date First/Initial COVID19 Vaccinat: NOVEMBER 2020 Second COVID19 Vaccination Malik: December 22 (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) Seasonal Allergies Seasonal Allergies: Yes (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) Past Medical History Surgery/Hospitalization HX: PCOS, ENDOMETERIOSIS Surgeries: Yes (EYE LID SURGERY TO REMOVE BLOOD VESSEL.DX LAPAROSCOPY FOR STRIP FEEDER COMPLAINTS) Appendectomy Respiratory: Yes Asthma Cardiac: No Neurological: No Female Reproductive Disorders: Menstrual Problems, Endometriosis, Ovarian Cyst Sexually Transmitted Disease: Yes (HX OF CHLAMYDIA) Genitourinary: No Gastrointestinal: No Musculoskeletal: No Endocrine: No HEENT: No (CHRONIC SINUS AND EAR INFECTIONS A YOUNG CHILD. ) Chronic Ear Infection, Tonsilitis Cancer: No Psychosocial: Yes Anxiety, Depression Integumentary: No Blood Disorders: No (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) Physical Exam Vital Signs Vital Signs - First Documented 04/14/21 04/14/21 12:59 15:19 Temp 36.5 Pulse 69 Resp 16 B/P (MAP) 112/93 Pulse Ox 99 O2 Delivery Room Air (CRISTI THAKKAR MD) Vital Signs Capillary Refill : (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) Height/Weight/BMI Height: '" Weight: lbs. oz. kg; 27.00 BMI Method: General Appearance: WD/WN, no apparent distress HEENT: PERRL/EOMI, normal ENT inspection, pharynx normal Neck: non-tender, full range of motion Respiratory: chest non-tender, lungs clear, normal breath sounds, no respiratory distress Cardiovascular: regular rate, rhythm, no edema, no gallop Gastrointestinal: normal bowel sounds, soft, tenderness (Lower abdominal tenderness on palpation.) Back: normal inspection, no CVA tenderness, no vertebral tenderness Neurologic/Psychiatric: cosmetic surgeon II-XII nml as tested, no motor/sensory deficits, alert, normal mood/affect, oriented x 3 (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) Progress/Results/Core Measures Results/Orders Lab Results Laboratory Tests Test 04/14/21 13:25 04/14/21 13:39 Range/Units Urine Color YELLOW Urine Clarity CLOUDY Urine pH 8.5 5-9 Urine Specific [place] 1.015 L 1.016-1.022 Urine Protein TRACE H NEGATIVE Urine Glucose (UA) NEGATIVE NEGATIVE Urine Ketones NEGATIVE NEGATIVE Urine Nitrite NEGATIVE NEGATIVE Urine Bilirubin NEGATIVE NEGATIVE Urine Urobilinogen 0.2 < = 1.0 MG/DL Urine Leukocyte Esterase TRACE H NEGATIVE Urine RBC (Auto) 3+ H NEGATIVE Urine RBC TNTC H /HPF Urine WBC 2-5 /HPF Urine Squamous Epithelial Cells 2-5 /HPF Urine Crystals NONE /LPF Urine Bacteria FEW H /HPF Urine Casts NONE /LPF Urine Mucus NEGATIVE /LPF Urine Culture Indicated YES Urine Test NEGATIVE NEGATIVE White Blood Count 7.0 4.3-11.0 10^3/uL Red Blood Count 4.48 3.80-5.11 10^6/uL Hemoglobin 12.9 11.5-16.0 g/dL Hematocrit 38 35-52 % Mean Corpuscular Volume 85 80-99 fL Mean Corpuscular Hemoglobin 29 25-34 pg Mean Corpuscular Hemoglobin Concent 34 32-36 g/dL Red Cell Distribution Width 12.4 10.0-14.5 % Platelet Count 268 130-400 10^3/uL Mean Platelet Volume 9.4 9.0-12.2 fL Immature Granulocyte % (Auto) 0 % Neutrophils (%) (Auto) 71 42-75 % Lymphocytes (%) (Auto) 20 12-44 % Monocytes (%) (Auto) 7 0-12 % Eosinophils (%) (Auto) 2 0-10 % Basophils (%) (Auto) 0 0-10 % Neutrophils # (Auto) 5.0 1.8-7.8 10^3/uL Lymphocytes # (Auto) 1.4 1.0-4.0 10^3/uL Monocytes # (Auto) 0.5 0.0-1.0 10^3/uL Eosinophils # (Auto) 0.1 0.0-0.3 10^3/uL Basophils # (Auto) 0.0 0.0-0.1 10^3/uL Immature Granulocyte # (Auto) 0.0 0.0-0.1 10^3/uL Sodium Level 141 135-145 MMOL/L Potassium Level 3.4 L 3.6-5.0 MMOL/L Chloride Level 106 98-107 MMOL/L Carbon Dioxide Level 23 21-32 MMOL/L Anion Gap 12 5-14 MMOL/L Blood Urea Nitrogen 5 L 7-18 MG/DL Creatinine 0.66 0.60-1.30 MG/DL Estimat Glomerular Filtration Rate 115 BUN/Creatinine Ratio 8 Glucose Level 89 70-105 MG/DL Calcium Level 9.2 8.5-10.1 MG/DL Corrected Calcium 9.2 8.5-10.1 MG/DL Total Bilirubin 0.6 0.1-1.0 MG/DL Aspartate Amino Transf (AST/SGOT) 22 5-34 U/L Alanine Aminotransferase (ALT/SGPT) 23 0-55 U/L Alkaline Phosphatase 60 40-136 U/L Total Protein 6.9 6.4-8.2 GM/DL Albumin 4.0 3.2-4.5 GM/DL Lipase 8 8-78 U/L (CRISTI THAKKAR MD) Medications Given in ED Current Medications Medications Dose Ordered Sig/Radhames Route Start Time Stop Time Status Last Admin Dose Admin Acetaminophen/ Hydrocodone Bitart 1 ea ONCE ONCE PO 04/14/21 15:00 04/14/21 15:01 DC 04/14/21 15:04 1 EA Ketorolac Tromethamine 30 mg ONCE ONCE IVP 04/14/21 13:45 04/14/21 13:46 DC 04/14/21 13:56 30 MG Ondansetron HCl 4 mg ONCE ONCE IVP 04/14/21 13:45 04/14/21 13:46 DC 04/14/21 13:55 4 MG (CRISTI THAKKAR MD) Vital Signs/I&O 04/14/21 04/14/21 12:59 15:19 Temp 36.5 Pulse 69 69 Resp 16 18 B/P (MAP) 112/93 Pulse Ox 99 99 O2 Delivery Room Air Room Air (CRISTI THAKKAR MD) Departure Communication (Admissions) Patient scheduled to follow-up with gynecology Dr. Vargas tomorrow concerning for endometriosis. Patient was seen here yesterday with a negative CT abdomen pelvis. Abdominal x-ray negative for stool loading or acute obstruction. Lab work was otherwise unremarkable. Was given a liter fluid, Toradol and Zofran with improvement. She does have Zofran at home. Continue with anti-inflammatories. Avoid the magnesium citrate which may be associated with the vomiting. Started her menstrual cycle today. Urinalysis with trace leukocytes and few bacteria. No specific urinary symptoms besides decreased urination likely secondary to dehydration. Culture pending at this time. Antibiotics was not ordered continue monitoring outpatient. Return precautions were discussed with patient and family. She denies of any vaginal discharge or concern for any type of sexual transmitted infection. History of constipation according to mother. Discussed Dulcolax in the future with fiber supplement. (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) Impression Primary Impression: Vomiting Disposition: HOME, SELF-CARE Condition: Improved Departure-Patient Inst. Decision time for Depature: 14:49 (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) Referrals: AARON BUSTAMANTE DO (PCP/Family) Primary Care Physician Patient Instructions: Nausea and Vomiting, Adult (DC) Add. Discharge Instructions: Follow-up with gynecology outpatient. All discharge instructions reviewed with patient and/or family. Voiced understanding. ATTENDING PHYSICIAN NOTE: I was physically present as attending physician in the emergency department during the care of this patient, but I was not directly involved in the decision making or delivery of care for this patient. (CRISTI THAKKAR MD) 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 Apr 14, 2021 13:42 CRISTI THAKKAR MD Apr 14, 2021 20:24
[2021-04-14] MEDS ORDERED: KETOROLAC 30 MG/ML VIAL IVP ONE (13:45)
[2021-04-14] MEDS ORDERED: NS IV 1000 ML 1,000 ML IV SCH (13:45)
[2021-04-14] MEDS ORDERED: ONDANSETRON 4 MG/2 ML (SDV) Z0FRAN IVP ONE (13:45)
[2021-04-14 13:49] LABS: BASOPHILS % (AUTO) 0 % (0-10); EOSINOPHILS # (AUTO) 0.1 10^3/uL (0.0-0.3); EOSINOPHILS % (AUTO) 2 % (0-10); HEMATOCRIT 38 % (35-52); HEMOGLOBIN 12.9 g/dL (11.5-16.0); LYMPHOCYTES # (AUTO) 1.4 10^3/uL (1.0-4.0); LYMPHOCYTES % (AUTO) 20 % (12-44); MEAN CORPUSCULAR HEMOGLOBIN 29 pg (25-34); MEAN CORPUSCULAR HGB CONC 34 g/dL (32-36); MEAN CORPUSCULAR VOLUME 85 fL (80-99); MEAN PLATELET VOLUME 9.4 fL (9.0-12.2); MONOCYTES # (AUTO) 0.5 10^3/uL (0.0-1.0); MONOCYTES % (AUTO) 7 % (0-12); NEUTROPHILS % (AUTO) 71 % (42-75); PLATELET COUNT 268 10^3/uL (130-400)
[2021-04-14 13:52] LABS: RBC,URINE TNTC /HPF
[2021-04-14 13:53] LABS: BACTERIA,URINE FEW /HPF
[2021-04-14 14:01] LABS: POTASSIUM 3.4 MMOL/L (3.6-5.0)
[2021-04-14 14:02] LABS: CALCIUM 9.2 MG/DL (8.5-10.1)
[2021-04-14 14:03] LABS: TOTAL PROTEIN 6.9 GM/DL (6.4-8.2)
[2021-04-14 14:05] LABS: BILIRUBIN,TOTAL 0.6 MG/DL (0.1-1.0)
[2021-04-14 14:07] LABS: CREATININE SERUM 0.66 MG/DL (0.60-1.30)
--- NOTE | 2021-04-14 14:10 | Diagnostic Imaging Report ---
INDICATION: Abdominal cramping and vomiting. FINDINGS: The bowel gas pattern is nonspecific. There are no abnormal abdominal calcifications. The osseous structures are unremarkable. IMPRESSION: Nonspecific bowel gas pattern. Dictated by: Dictated on workstation # [id number]
[2021-04-14] MEDS ORDERED: HYDROcodone/APAP 5 MG/325 MG (LORTAB) TAB PO ONE (15:00)
[2021-04-14 15:19] VITALS: BP 112/93
== END 2021-04-14 15:19 | disposition home or self-care (01) ==
LOC: EDUNIT# 12:38 → ER 12:39
DX: R11.10 Vomiting, unspecified (principal); J45.909 Unspecified asthma, uncomplicated; F41.9 Anxiety disorder, unspecified; F32.9 Major depressive disorder, single episode, unspecified; Z79.899 Other long term (current) drug therapy
CPT/HCPCS: 36415; 74018; 80053; 81000; 83690; 84703; 85025; 87088

== ENCOUNTER 2021-04-16 05:32 | Outpatient (CLI) | payer BC ==
[~2021-04-16] VITALS: Ht 162.6 cm; Wt 74.0 kg
[2021-04-16] MEDS ORDERED: [UNRECOGNIZED DRUG - REMARK] (11:42)
[2021-04-16] MEDS ORDERED: EREN70AU SQ (11:42)
[2021-04-16] MEDS ORDERED: CITA40TA19 PO (11:42)
== END 2021-04-16 12:07 | disposition home or self-care (01) ==
LOC: PREOP 05:32
PROVIDERS: ATTEND Obstetrics & Gynecology
DX: Z01.818 Encounter for other preprocedural examination (principal)

== ENCOUNTER 2021-04-19 05:59 | Day surgery (SDC) | payer BC ==
[~2021-04-19] VITALS: Ht 162.6 cm; Wt 74.0 kg
[2021-04-19] VITALS (13 sets, daily range): BP systolic 95–130; BP diastolic 50–85
[~2021-04-19 05:59] MED LIST changes: +CITA40TA19 PO; +EREN70AU SQ; +[UNRECOGNIZED DRUG - REMARK]
[2021-04-19] MEDS: LACTATED RINGERS 1,000 ML IV PRN ×3 (06:24→10:04)
[2021-04-19] MEDS ORDERED: SCOPOLAMINE 1.5 MG (TRANSDERM-SCOP) PATCH TD ONE (06:45)
[2021-04-19] MEDS ORDERED: ONDANSETRON 4 MG/2 ML (SDV) Z0FRAN IVP ONE (06:45)
[2021-04-19] MEDS ORDERED: FAMOTIDINE 20MG/2ML IV (PEPCID) IVP ONE (06:45)
[2021-04-19] MEDS ORDERED: LIDOCAINE/EPI 1%-1:100,000 (XYLOCAINE) 20ML ONE (06:49)
[2021-04-19] MEDS ORDERED: FAMOTIDINE 20MG/2ML IV (PEPCID) ONE (06:52)
[2021-04-19] MEDS ORDERED: SCOPOLAMINE 1.5 MG (TRANSDERM-SCOP) PATCH ONE (06:52)
[2021-04-19] MEDS ORDERED: ONDANSETRON 4 MG/2 ML (SDV) Z0FRAN ONE ×2 (06:52→07:08)
[2021-04-19] MEDS ORDERED: proPOfol 200 MG/20 ML (DIPRIVAN) VIAL IV ONE (07:08)
[2021-04-19] MEDS ORDERED: LIDOCAINE PF 2% 5 ML (XYLOCAINE) VIAL ONE (07:08)
[2021-04-19] MEDS ORDERED: SEVOFLURANE (ULTANE) 15 ML INHAL SOLN ONE ×3 (07:08→08:56)
[2021-04-19] MEDS ORDERED: METHYLENE BLUE 0.5% (PROVAYBLUE) 50 mg/10 ml vial IV ONE (07:08)
[2021-04-19] MEDS ORDERED: MIDAZOLAM 2 MG/2 ML (VERSED) VIAL ONE (07:08)
[2021-04-19] MEDS ORDERED: fentaNYL INJ 100 MCG/2 ML AMP ONE (07:08)
[2021-04-19] MEDS ORDERED: ROCURONIUM 50 MG/5 ML (ZEMURON) VIAL IV ONE (07:09)
--- NOTE | 2021-04-19 07:16 | History & Physical-OB/GYN ---
History of Present Illness History of Present Illness Reason for visit/HPI Pt presents for scheduled surgery Date of Admission 04/19/21 Date Seen by a Provider: Apr 19, 2021 Time Seen by a Provider: 07:05 I consulted on this patient on Attending Physician Elif Bernstein MD Admitting Physician Bruna Balderas DO Consult Allergies and Home Medications Allergies Coded Allergies: azithromycin (Verified Allergy, Unknown, RASH, 02/11/19) Patient Home Medication List Home Medication List Reviewed: Yes Citalopram Hydrobromide (Celexa) 40 Mg Tablet, 40 MG PO DAILY, (Reported) Entered as Reported by: RADHA PEREZ on 04/16/21 1142 Last Action: Reviewed Erenumab-Aooe (Aimovig Autoinjector) 70 Mg/1 Ml Auto.injct, 70 MG SQ MONTHLY, (Reported) Entered as Reported by: RADHA PEREZ on 04/16/21 1142 Last Action: Reviewed Ibuprofen (Ibuprofen) 800 Mg Tablet, 800 MG PO Q6H PRN for PAIN Prescribed by: MEG MARTINO on 02/11/19 1529 Last Action: Reviewed Oxybutynin Chloride (Oxybutynin Chloride ER) 10 Mg Tab.er.24, (Reported) Entered as Reported by: GISSELLE JOYCE on 04/30/20 1033 Last Action: Reviewed [Cigna Contol] , 4 MG DAILY, (Reported) Entered as Reported by: RADHA PEREZ on 04/16/21 1142 Last Action: Reviewed Discontinued Medications Citalopram Hydrobromide (Celexa) 20 Mg Tablet, 20 MG PO DAILY, (Reported) Discontinued Reason: No Longer Taking Entered as Reported by: TRINA JAEGER on 02/11/19 1346 Diclofenac Sodium (Diclofenac Sodium) 50 Mg Tablet.dr, 50 MG PO TID PRN for pain Discontinued Reason: No Longer Taking Prescribed by: JASON LOVING on 04/12/21 0121 Ethinyl Estradiol/Drospirenone (Loryna 3 mg-0.02 mg Tablet) 1 Each Tablet, (Reported) Discontinued Reason: No Longer Taking Entered as Reported by: GISSELLE JOYCE on 04/30/20 1033 Ketorolac Tromethamine (Ketorolac Tromethamine) 10 Mg Tablet, (Reported) Discontinued Reason: No Longer Taking Entered as Reported by: GISSELLE JOYCE on 04/30/20 1033 Magnesium Citrate (Magnesium Citrate) 296 Ml Solution, 296 ML PO ONCE Discontinued Reason: No Longer Taking Prescribed by: PIO VELASCO on 04/13/21 1330 Na Phos,M-B/Na Phos,Di-Ba (Fleet Enema) 133 Ml Enema, 133 ML RC ONCE Discontinued Reason: No Longer Taking Prescribed by: PIO VELASCO on 04/13/21 1330 Oxycodone HCl/Acetaminophen (Percocet 5-325 mg Tablet) 1 Each Tablet, 1 TAB PO Q4H Discontinued Reason: No Longer Taking Prescribed by: MEG MATRINO on 02/11/19 1529 Prednisone (Prednisone) 20 Mg Tab, 40 MG PO DAILY Discontinued Reason: No Longer Taking Prescribed by: TRE HALEY on 04/30/20 1223 Pregabalin (Pregabalin) 50 Mg Capsule, (Reported) Discontinued Reason: No Longer Taking Entered as Reported by: GISSELLE JOYCE on 04/30/20 1033 [ Control] , PO DAILY, (Reported) Discontinued Reason: No Longer Taking Entered as Reported by: TRINA JAEGER on 02/11/19 1347 Past Lmrjvoj-Lhgtns-Fbqjrt Hx Patient Social History Marrital Status: single Smoking Status: Never a Smoker 2nd Hand Smoke Exposure: No Recent Hopitalizations: No (2019-DX LAP FOR ENDOMETRIOSIS/APPEY) Immunizations Up To Date Date of Influenza Vaccine: Mar 18, 2021 Seasonal Allergies Seasonal Allergies: Yes Surgeries Yes (EYE LID, APPEY, ENDOMETRIOSIS AND LYSIS OF ADHESIONS) Appendectomy Respiratory Yes Cardiovascular No Neurological No Reproductive System Last Menstrual Period: Apr 28, 2021 Sexually Transmitted Disease: Yes (HX OF CHLAMYDIA) HIV/AIDS: No Female Reproductive Disorders: Menstrual Problems, Endometriosis, Ovarian Cyst Genitourinary Yes (POST SURGERY IN 2019 "SLEEPY BLADDER") Gastrointestinal No Musculoskeletal No Endocrine History of Endocrine Disorders: No HEENT History of HEENT Disorders: No (CHRONIC SINUS AND EAR INFECTIONS A YOUNG CHILD. ) HEENT Disorders: Chronic Ear Infection, Tonsilitis Cancer No Psychosocial History of Psychiatric Problem: Yes Behavioral Health Disorders: Anxiety, Depression Integumentary History of Skin or Integumenta: No (D) Blood Transfusions History of Blood Disorders: No Adverse Reaction to a Blood Tr: No Review of Systems Constitutional: no symptoms reported Physical Exam Physical Exam Vital Signs Vital Signs Date Time Temp Pulse Resp B/P (MAP) Pulse Ox O2 Delivery O2 Flow Rate FiO2 04/19/21 06:10 36.3 92 16 119/85 (96) 98 Room Air Capillary Refill : Labs Urine test: Negative General Appearance: No Apparent Distress Respiratory: Other (non-labored respirations, symmetric chest rise) Cardiovascular: Other (normal rate and peripheral perfusion) Abdominal: soft, other (mild tenderness in LLQ) Extremity: Other (normal peripheral perfusion) Assessment/Plan Assessment and Plan Problems: (1) Chronic pelvic pain in female (2) History of endometriosis Status: Acute Assessment & Plan: 20 yo G0 with hx of endometriosis and chronic pelvic pain, who presents for scheduled dx laparoscopy with fulguration of endometriosis, possible lysis of adhesions, chromotubation, IUD placement - Plan is to proceed with scheduled surgery Admission Diagnosis Chronic pelvic pain History of endometriosis Admission Status: Other (Same Day Surgery) Diagnosis/Problems Diagnosis/Problems (1) Chronic pelvic pain in female (2) History of endometriosis Status: Acute ELIF BERNSTEIN MD Apr 19, 2021 07:16
[2021-04-19] MEDS ORDERED: ceFAZolin 2 GM IV Premixed 50 ML ONE (07:20)
[2021-04-19 07:47] LABS: BASOPHILS % (AUTO) 0 % (0-10); EOSINOPHILS # (AUTO) 0.4 10^3/uL (0.0-0.3); EOSINOPHILS % (AUTO) 6 % (0-10); HEMATOCRIT 37 % (35-52); HEMOGLOBIN 12.1 g/dL (11.5-16.0); LYMPHOCYTES % (AUTO) 31 % (12-44); MEAN CORPUSCULAR HEMOGLOBIN 29 pg (25-34); MEAN CORPUSCULAR HGB CONC 33 g/dL (32-36); MEAN CORPUSCULAR VOLUME 87 fL (80-99); MEAN PLATELET VOLUME 9.4 fL (9.0-12.2); MONOCYTES # (AUTO) 0.5 10^3/uL (0.0-1.0); MONOCYTES % (AUTO) 8 % (0-12); NEUTROPHILS # (AUTO) 3.5 10^3/uL (1.8-7.8); NEUTROPHILS % (AUTO) 54 % (42-75); PLATELET COUNT 240 10^3/uL (130-400); WHITE BLOOD COUNT 6.4 10^3/uL (4.3-11.0)
[2021-04-19] MEDS ORDERED: GLYCOPYRROLATE 0.2 MG/ML (ROBINUL) 2 ML VIAL ONE (08:47)
[2021-04-19] MEDS ORDERED: NEOSTIGMINE 3 MG/3 ML VIAL ONE (08:47)
[2021-04-19] MEDS ORDERED: morphine INJ 10 MG/ML 1ML (SYR OR VIAL) ONE (08:48)
[2021-04-19] MEDS ORDERED: KETOROLAC 30 MG/ML VIAL ONE (08:50)
--- NOTE | 2021-04-19 09:12 | Anesthesia-General Post-Op ---
General Patient Condition Mental Status/LOC: Same as Preop Cardiovascular: Satisfactory Nausea/Vomiting: Absent Respiratory: Satisfactory Pain: Controlled Complications: Absent Post Op Complications Complications None Follow Up Care/Instructions Patient Instructions None needed. Anesthesia/Patient Condition Patient Condition Patient is doing well, no complaints, stable vital signs, no apparent adverse anesthesia problems. No complications reported per nursing. HALLEY IGNACIO CRNA Apr 19, 2021 09:12
[2021-04-19] MEDS ORDERED: fentaNYL INJ 100 MCG/2 ML AMP IVP ONE (09:15)
[2021-04-19] MEDS ORDERED: ONDANSETRON 4 MG/2 ML (SDV) Z0FRAN IVP PRN (09:15)
[2021-04-19] MEDS ORDERED: MEPERIDINE (DEMEROL) INJ 50 MG/ML IVP ONE (09:15)
[2021-04-19] MEDS ORDERED: morphine INJ 10 MG/ML 1ML (SYR OR VIAL) IVP ONE (09:15)
--- NOTE | 2021-04-19 10:13 | Operative Report ---
Operative Report Date of Procedure/Surgery Apr 19, 2021 Surgeon (s) ELIF BERNSTEIN MD Welder/Fitter (s): Nina Alcantar DO Post-Operative Diagnosis Chronic pelvic pain Endometriosis Procedure Performed Diagnostic laparoscopy Fulguration of endometriosis Chromotubation Liletta IUD placement Description of Procedure Anesthesia Type: General Estimated blood loss (mL): 20mL Specimen(s) collected/removed None Description of the Procedure The patient was taken to the operating room, where general anesthesia was inducedby the anesthesiology team. She was then placed in the dorsal lithotomy position.Pelvic examination under anesthesia was performed, and the patient was then prepped and draped in a sterile fashion. An indwelling fontana catheter was placed in the bladder prior to the procedure. Speculum was placed and the cervix was visualized.The tenaculum wasplaced on the anterior cervical lip for mobilization, The uterus was sounded to 8cm, and the uterine manipulator was inserted into the uterine cavity. Attention was then turned to the abdomen. A skin incision was made at the base of the umbilicus. A 5mm trocar wasthenintroduced directly into the abdomen under laparoscopic visualization.Proper intraabdominal placement was confirmed, and insufflation was begun with CO2 gas. Adequate pneumoperitoneum was achieved. There was no injury of the underlying bowel and vasculatures at the trocar entry site. An intraabdominal surveywas performed, with findings as noted above. The Trendelenburg position was obtained to facilitate moving the abdominal contents out of the pelvis. The pelvic anatomy was as noted above. Two small transverse incisions were made in the right and left lower quadrant approximately 2cm medial and superior to the ASIS.A5 mm trocars and sleeve was inserted through the incisions, on right and left,under direct visualization The L-Hook monopolor device was used to fulgurate all the endometriosis tissue t hat were visible on the pelvic structures as noted above. Next, the chromotubation was performed by injecting methylene blue dyed NS into the uterine cavity, using the previously placed uterine manipulator. Free flow of the dye was noted through the left fallopian tube fimbriae, and into the pelvic cavity. The dye did not flow out of the right fallopian tube fimbriaeted end, although the dye was visible within the tube. The lower right and left abdominal ports were removed under laparoscopic visualization andthe sites were hemostatic.Pneumoperitoneum was released, and theumbilical port was removed. The skin incisions were closed with suturein a subcuticular manner,and a skin adhesive was used to reinforce theskin edges at the incision sites. Attention was then returned to the vagina. Speculum was inserted, and the uterine manipulator was removed. The cervix was then stabilized with a tenaculum, and the Liletta IUD was fully loaded in the insertion tube and placed in the endometrial cavity to the uterine fundus. The IUD insertion guide was then withdrawn about 1-2cm from the fundus and the device arms were deployed. After about 10 seconds, the IUD was advanced back to the fundus and fully deployed into the uterine cavity. The IUD strings were trimmed to approximately to 2 cm from the cervical os. The tenaculum was removed from the cervix, and the sites were examined, and noted to be hemostatic. Speculum was then removed, and fontana catheter was removed. The patient tolerated the procedure well. Needle/instrument/sponge counts were correct x3. The patient was taken back to the recovery room in stable condition. Findings of the Procedure 1. Normal appearance of the external genitalia, vagina, and cervix without lesions or atrophy 2. Uterus is midplane, normal size, and mobile on bimanual exam 3. On laparoscopy, the uterus was normal in appearance. There were multiple blue-black endometriosis implants on the posterior cul de sac and pelvic side wall. Endometriosis implants were also noted on the right ovary. The left ovary appeared normal. No obvious uterosacral ligament implants were noted on gross examination. Osmin Master window also noted in the posterior cul de sac 4. There were no significant pelvic adhesive disease. The appendix is surgically absent 5. Normal appearance of the liver edge and gallbladder 6. On chromotubation, the left fallopian tube appeared patent with flow of methylene blue dye observed from the fimbriated end into the abdominal cavity. There was no flow observed from the right fallopian tube fimbriae Allergies and Home Medications Allergies Coded Allergies: azithromycin (Verified Allergy, Unknown, RASH, 02/11/19) Patient Home Medication List Home Medication List Reviewed: Yes Citalopram Hydrobromide (Celexa) 40 Mg Tablet, 40 MG PO DAILY, (Reported) Entered as Reported by: RADHA PEREZ on 04/16/21 0937 Last Action: Reviewed Erenumab-Aooe (Aimovig Autoinjector) 70 Mg/1 Ml Auto.injct, 70 MG SQ MONTHLY, (Reported) Entered as Reported by: RADHA PEREZ on 04/16/21 1142 Last Action: Reviewed Hydrocodone/Acetaminophen (Hydrocodone-Acetamin 5-325 mg) 1 Each Tablet, 1 TAB PO Q6H PRN for PAIN-MODERATE (5-7) Prescribed by: ELIF BERNSTEIN on 04/19/21 1019 Ibuprofen (Ibuprofen) 800 Mg Tablet, 800 MG PO Q6H PRN for PAIN Prescribed by: MEG MARTINO on 02/11/19 1529 Last Action: Reviewed Ibuprofen (Ibuprofen) 800 Mg Tablet, 800 MG PO Q8H PRN for PAIN-MILD Prescribed by: ELIF BERNSTEIN on 04/19/21 1016 Oxybutynin Chloride (Oxybutynin Chloride ER) 10 Mg Tab.er.24, (Reported) Entered as Reported by: GISSELLE JOYCE on 04/30/20 1033 Last Action: Reviewed [Cigna Contol] , 4 MG DAILY, (Reported) Entered as Reported by: RADHA PEREZ on 04/16/21 1142 Last Action: Reviewed Discontinued Medications Citalopram Hydrobromide (Celexa) 20 Mg Tablet, 20 MG PO DAILY, (Reported) Discontinued Reason: No Longer Taking Entered as Reported by: TRINA JAEGER on 02/11/19 1346 Diclofenac Sodium (Diclofenac Sodium) 50 Mg Tablet.dr, 50 MG PO TID PRN for pain Discontinued Reason: No Longer Taking Prescribed by: JASON LOVING on 04/12/21 0121 Ethinyl Estradiol/Drospirenone (Loryna 3 mg-0.02 mg Tablet) 1 Each Tablet, (Reported) Discontinued Reason: No Longer Taking Entered as Reported by: GISSELLE JOYCE on 04/30/20 1033 Ketorolac Tromethamine (Ketorolac Tromethamine) 10 Mg Tablet, (Reported) Discontinued Reason: No Longer Taking Entered as Reported by: GISSELLE JOYCE on 04/30/20 1033 Magnesium Citrate (Magnesium Citrate) 296 Ml Solution, 296 ML PO ONCE Discontinued Reason: No Longer Taking Prescribed by: PIO VELASCO on 04/13/21 1330 Na Phos,M-B/Na Phos,Di-Ba (Fleet Enema) 133 Ml Enema, 133 ML RC ONCE Discontinued Reason: No Longer Taking Prescribed by: PIO VELASCO on 04/13/21 1330 Oxycodone HCl/Acetaminophen (Percocet 5-325 mg Tablet) 1 Each Tablet, 1 TAB PO Q4H Discontinued Reason: No Longer Taking Prescribed by: MEG MARTINO on 02/11/19 1529 Prednisone (Prednisone) 20 Mg Tab, 40 MG PO DAILY Discontinued Reason: No Longer Taking Prescribed by: TRE HALEY on 04/30/20 1223 Pregabalin (Pregabalin) 50 Mg Capsule, (Reported) Discontinued Reason: No Longer Taking Entered as Reported by: GISSELLE JOYCE on 04/30/20 1033 [ Control] , PO DAILY, (Reported) Discontinued Reason: No Longer Taking Entered as Reported by: TRINA JAEGER on 02/11/19 1347 ELIF BRENSTEIN MD Apr 19, 2021 10:13
[2021-04-19] MEDS ORDERED: IBUP-1780 PO (10:16)
[2021-04-19] MEDS ORDERED: ACHD5005 PO (10:18)
--- NOTE | 2021-04-19 10:23 | Discharge Inst-Simple/Standard ---
Discharge Inst-Standard Reconcile Patient Problems Problems Reviewed?: Yes Discharge Medications New, Converted or Re-Newed RX: Transmitted to Pharmacy Patient Instructions/Follow Up Plan of Care/Instructions/FU: [facility] to schedule a 2 weeks post-op visit Activity as Tolerated: Yes Discharge Diet: No Restrictions Return to The Hospital For: - Return for temperature >100.4 degrees, intractable pain/nausea/vomiting, incision concerns, or any other concerns - Keep all follow up appointments. ELIF BERNSTEIN MD Apr 19, 2021 10:23
[2021-04-19] MEDS ORDERED: HYDROcodone/APAP 5 MG/325 MG (LORTAB) TAB PO ONE (12:15)
[2021-04-19] MEDS ORDERED: HYDROcodone/APAP 5 MG/325 MG (LORTAB) TAB ONE (12:24)
== END 2021-04-19 16:04 ==
LOC: SDC 05:59 → EDSTATUS 07:30 → SDC 16:04
PROVIDERS: ATTEND Obstetrics & Gynecology
DX: N80.9 Endometriosis, unspecified (principal); J45.909 Unspecified asthma, uncomplicated; F32.A Depression, unspecified; F41.9 Anxiety disorder, unspecified; Z79.2 Long term (current) use of antibiotics; Z79.899 Other long term (current) drug therapy; Z79.891 Long term (current) use of opiate analgesic; Z79.1 Long term (current) use of non-steroidal anti-inflammatories (NSAID); Z98.890 Other specified postprocedural states
CPT/HCPCS: 36415; 84703; 85025; 86850; 86900; 86901; 87081

== ENCOUNTER → 2021-10-24 | Outpatient (CLI) | payer BC ==
[~2021-10-24] MED LIST changes: +ACHD5005 PO
--- NOTE | 2021-10-24 12:40 | Diagnostic Imaging Report ---
PROCEDURE: CT abdomen and pelvis without contrast. TECHNIQUE: Multiple contiguous axial images were obtained through the abdomen and pelvis without the use of intravenous contrast. Auto Exposure Controls were utilized during the CT exam to meet ALARA standards for radiation dose reduction. INDICATION: Bilateral flank pain and pelvic pain. Correlation is made with prior CT from 04/13/2021. The lung bases are clear. The liver and gallbladder are unremarkable. No biliary ductal dilatation is seen. The pancreas and spleen are unremarkable. No adrenal mass is detected. No renal calculi or hydronephrosis is identified. No ureteral or bladder calculi are detected. There is an IUD within the uterus. Aorta is nonaneurysmal. Bowel loops are non-obstructed. There is no free fluid or fluid collection. No inflammatory changes are identified. IMPRESSION: Unremarkable noncontrast CT of the abdomen and pelvis. No urinary tract calculi or obstruction is seen. No acute feature is detected. Dictated by: Dictated on workstation # [id number]
== END ==
LOC: RAD 13:00
PROVIDERS: ATTEND Family Medicine
DX: R10.2 Pelvic and perineal pain (principal); R10.9 Unspecified abdominal pain; R14.0 Abdominal distension (gaseous)
CPT/HCPCS: 74176

== ENCOUNTER 2021-11-21 14:57 | Emergency (ER) | payer BC ==
[~2021-11-21] VITALS: Ht 162.5 cm; Wt 79.0 kg
[2021-11-21] MEDS ORDERED: ANTACID SUSP 30 ML UDC (MYLANTA) PO ONE (16:30)
[2021-11-21] MEDS ORDERED: LIDOCAINE 2% VISCOUS 15 ML UDC PO ONE (16:30)
--- NOTE | 2021-11-21 16:33 | ED Abdominal Pain ---
General Chief Complaint: Abdominal/GI Problems Stated Complaint: ABD PAIN, H PYLORI Source of Information: Patient Exam Limitations: No Limitations History of Present Illness Date Seen by Provider: Nov 21, 2021 Time Seen by Provider: 16:33 Initial Comments This is a 21-year-old female who presented to the ER with complaints of epigast domenico tenderness over the past 5 days. States that she was just diagnosed with H. pylori at her primary care provider office. She has been placed on amoxicillin 500 mg by mouth twice a day and Flagyl twice daily. States that she was also given Protonix 40 mg p.o. daily. States that despite taking his medications her symptoms are still severe and it is difficult for her to eat without any pain. Reports some chills and nausea. No fever, vomiting, cough, shortness of breath, diarrhea, dysuria, hematuria. Allergies and Home Medications Allergies Coded Allergies: azithromycin (Verified Allergy, Unknown, RASH, 02/11/19) Patient Home Medication List Home Medication List Reviewed: Yes Citalopram Hydrobromide (Celexa) 40 Mg Tablet, 40 MG PO DAILY, (Reported) Entered as Reported by: RADHA PEREZ on 04/16/21 1142 Erenumab-Aooe (Aimovig Autoinjector) 70 Mg/1 Ml Auto.injct, 70 MG SQ MONTHLY, (Reported) Entered as Reported by: RADHA PEREZ on 04/16/21 1142 Hydrocodone/Acetaminophen (Hydrocodone-Acetamin 5-325 mg) 1 Each Tablet, 1 TAB PO Q6H PRN for PAIN-MODERATE (5-7) Prescribed by: ELIF BERNSTEIN on 04/19/21 1019 Ibuprofen (Ibuprofen) 800 Mg Tablet, 800 MG PO Q8H PRN for PAIN-MILD Prescribed by: ELIF BERNSTEIN on 04/19/21 1016 Oxybutynin Chloride (Oxybutynin Chloride ER) 10 Mg Tab.er.24, (Reported) Entered as Reported by: GISSELLE JOYCE on 04/30/20 1033 Review of Systems Review of Systems Constitutional: chills EENTM: No Symptoms Reported Respiratory: No Symptoms Reported Cardiovascular: No Symptoms Reported Gastrointestinal: Abdomen Distended, Abdominal Pain Genitourinary: No Symptoms Reported Musculoskeletal: no symptoms reported Skin: no symptoms reported Psychiatric/Neurological: No Symptoms Reported Endocrine: No Symptoms Reported Hematologic/Lymphatic: No Symptoms Reported Past Bneiubp-Gthgri-Awtvkh Hx Immunizations Up To Date First/Initial COVID19 Vaccinat: November 2020 Second COVID19 Vaccination Malik: December 2020 Third COVID19 Vaccination Date: November 2020 Seasonal Allergies Seasonal Allergies: Yes Past Medical History Surgery/Hospitalization HX: PCOS, ENDOMETERIOSIS Surgeries: Yes (EYE LID, APPEY, ENDOMETRIOSIS AND LYSIS OF ADHESIONS) Appendectomy Respiratory: Yes Asthma Currently Using CPAP: No Currently Using BIPAP: No Cardiac: No Neurological: No Female Reproductive Disorders: Menstrual Problems, Endometriosis, Ovarian Cyst Sexually Transmitted Disease: Yes (HX OF CHLAMYDIA) HIV/AIDS: No Genitourinary: Yes (POST SURGERY IN 2019 "SLEEPY BLADDER") Gastrointestinal: No Musculoskeletal: No Endocrine: No HEENT: No (CHRONIC SINUS AND EAR INFECTIONS A YOUNG CHILD. ) Chronic Ear Infection, Tonsilitis Cancer: No Psychosocial: Yes Anxiety, Depression Integumentary: No (D) Blood Disorders: No Adverse Reaction/Blood Tranf: No Physical Exam Vital Signs Vital Signs - First Documented 11/21/21 17:47 Pulse 79 Resp 16 B/P (MAP) 127/84 Pulse Ox 100 O2 Delivery Room Air Capillary Refill : Height/Weight/BMI Height: '" Weight: lbs. oz. kg; 27.98 BMI Method: General Appearance: WD/WN, no apparent distress HEENT: PERRL/EOMI, normal ENT inspection, pharynx normal Neck: full range of motion, supple, normal inspection Respiratory: lungs clear, normal breath sounds, no respiratory distress, no accessory muscle use Cardiovascular: regular rate, rhythm, no murmur Gastrointestinal: normal bowel sounds, soft, other (epigastric tenderness) Extremities: normal range of motion, normal inspection Back: normal inspection Neurologic/Psychiatric: no motor/sensory deficits, alert, normal mood/affect, oriented x 3 Skin: normal color, warm/dry Progress/Results/Core Measures Results/Orders Lab Results Laboratory Tests Test 11/21/21 16:13 11/21/21 16:54 Range/Units White Blood Count 7.1 4.3-11.0 10^3/uL Red Blood Count 4.20 3.80-5.11 10^6/uL Hemoglobin 11.8 11.5-16.0 g/dL Hematocrit 37 35-52 % Mean Corpuscular Volume 87 80-99 fL Mean Corpuscular Hemoglobin 28 25-34 pg Mean Corpuscular Hemoglobin Concent 32 32-36 g/dL Red Cell Distribution Width 12.0 10.0-14.5 % Platelet Count 257 130-400 10^3/uL Mean Platelet Volume 9.9 9.0-12.2 fL Immature Granulocyte % (Auto) 0 % Neutrophils (%) (Auto) 65 42-75 % Lymphocytes (%) (Auto) 25 12-44 % Monocytes (%) (Auto) 8 0-12 % Eosinophils (%) (Auto) 2 0-10 % Basophils (%) (Auto) 0 0-10 % Neutrophils # (Auto) 4.6 1.8-7.8 10^3/uL Lymphocytes # (Auto) 1.7 1.0-4.0 10^3/uL Monocytes # (Auto) 0.6 0.0-1.0 10^3/uL Eosinophils # (Auto) 0.1 0.0-0.3 10^3/uL Basophils # (Auto) 0.0 0.0-0.1 10^3/uL Immature Granulocyte # (Auto) 0.0 0.0-0.1 10^3/uL Sodium Level 138 135-145 MMOL/L Potassium Level 3.6 3.6-5.0 MMOL/L Chloride Level 105 98-107 MMOL/L Carbon Dioxide Level 24 21-32 MMOL/L Anion Gap 9 5-14 MMOL/L Blood Urea Nitrogen 7 7-18 MG/DL Creatinine 0.67 0.60-1.30 MG/DL Estimat Glomerular Filtration Rate 128 BUN/Creatinine Ratio 10 Glucose Level 88 70-105 MG/DL Calcium Level 9.0 8.5-10.1 MG/DL Corrected Calcium 8.8 8.5-10.1 MG/DL Total Bilirubin 0.4 0.1-1.0 MG/DL Aspartate Amino Transf (AST/SGOT) 19 5-34 U/L Alanine Aminotransferase (ALT/SGPT) 15 0-55 U/L Alkaline Phosphatase 57 40-136 U/L C-Reactive Protein High Sensitivity 0.21 0.00-0.50 MG/DL Total Protein 7.0 6.4-8.2 GM/DL Albumin 4.2 3.2-4.5 GM/DL Lipase 15 8-78 U/L Urine Color YELLOW Urine Clarity CLEAR Urine pH 6.0 5-9 Urine Specific [place] 1.010 L 1.016-1.022 Urine Protein NEGATIVE NEGATIVE Urine Glucose (UA) NEGATIVE NEGATIVE Urine Ketones NEGATIVE NEGATIVE Urine Nitrite NEGATIVE NEGATIVE Urine Bilirubin NEGATIVE NEGATIVE Urine Urobilinogen 0.2 < = 1.0 MG/DL Urine Leukocyte Esterase NEGATIVE NEGATIVE Urine RBC (Auto) NEGATIVE NEGATIVE Urine RBC NONE /HPF Urine WBC 0-2 /HPF Urine Squamous Epithelial Cells 0-2 /HPF Urine Renal Epithelial Cells NONE /HPF Urine Crystals NONE /LPF Urine Bacteria NEGATIVE /HPF Urine Casts NONE /LPF Urine Mucus NEGATIVE /LPF Urine Culture Indicated NO My Orders Orders - KAILEY TREJO SKIP TRACER Lidocaine 2% Viscous 15 Ml (Xylocaine Vi (11/21/21 16:30) Antacid Suspension (Mylanta Suspension (11/21/21 16:30) Ed Iv/Invasive Line Start (11/21/21 16:34) Cbc With Automated Diff (11/21/21 16:34) Comprehensive Metabolic Panel (11/21/21 16:34) Lipase (11/21/21 16:34) Hs C Reactive Protein (11/21/21 16:34) Urine Bedside (11/21/21 16:34) Ua Culture If Indicated (11/21/21 16:34) Abdomen/Kub 1view (11/21/21 ) Medications Given in ED Current Medications Medications Dose Ordered Sig/Radhames Route Start Time Stop Time Status Last Admin Dose Admin Al Hydrox/Mg Hydrox/Simethicone 30 ml ONCE ONCE PO 11/21/21 16:30 11/21/21 16:31 DC 11/21/21 16:57 30 ML Lidocaine HCl 15 ml ONCE ONCE PO 11/21/21 16:30 11/21/21 16:31 DC 11/21/21 16:57 15 ML Vital Signs/I&O 11/21/21 17:47 Pulse 79 Resp 16 B/P (MAP) 127/84 Pulse Ox 100 O2 Delivery Room Air Diagnostic Imaging Diagonstic Imaging: Xray Plain Films/CT/US/NM/MRI: abdomen Comments [facility] [place], [place] NAME: DIANE MONTERO MED REC#: [id number] PT STATUS: REG ER : 2000 PHYSICIAN: KAILEY TREJO SKIP TRACER ADMIT DATE: 11/21/21/ER Signed Date of Exam:11/21/21 ABDOMEN/KUB 1VIEW REASON FOR EXAM: Abdominal pain. COMPARISON: 10/24/2021. TECHNIQUE: frontal supine view of the abdomen FINDINGS: The bowel gas pattern is nondistended. No large collection of free intraperitoneal air is seen. A moderate to large volume of gas and fecal material are present in the colon. No abnormal extraosseous calcifications are present. IUD is in place. The osseous structures are age-appropriate. IMPRESSION: 1. No evidence of bowel obstruction or large collection of free intraperitoneal air. 2. Moderate to large volume of stool in the colon suggestive of constipation. Dictated by: Dictated on workstation # [id number] Dict: 11/21/211737 Trans: 11/21/211742 CVB [id number] Interpreted by: LUCY BAUMANN DO Electronically signed by: LUCY BAUMANN DO 11/21/21 1743 Reviewed: Reviewed by Me Departure Communication (Admissions) Time/Spoke to Consulting Phy: 17:30 Dr. Brown Impression Primary Impression: H. pylori infection Disposition: 01 HOME, SELF-CARE Condition: Improved Departure-Patient Inst. Decision time for Depature: 17:37 Referrals: AARON BUSTAMANTE DO (PCP/Family) Primary Care Physician Patient Instructions: H. pylori Infection Add. Discharge Instructions: Plan: 1. Follow up with Dr. Brown tomorrow in office at 10:00am, please arrive a little early to fill out paperwork. 2. Return to ER for any new, concerning, or worsening symptoms. Address: [address] [place] [address] [place] [address] All discharge instructions reviewed with patient and/or family. Voiced understanding. KAILEY TREJO SKIP TRACER Nov 21, 2021 16:33
[2021-11-21 16:42] LABS: BASOPHILS % (AUTO) 0 % (0-10); EOSINOPHILS # (AUTO) 0.1 10^3/uL (0.0-0.3); EOSINOPHILS % (AUTO) 2 % (0-10); HEMATOCRIT 37 % (35-52); HEMOGLOBIN 11.8 g/dL (11.5-16.0); LYMPHOCYTES # (AUTO) 1.7 10^3/uL (1.0-4.0); LYMPHOCYTES % (AUTO) 25 % (12-44); MEAN CORPUSCULAR HEMOGLOBIN 28 pg (25-34); MEAN CORPUSCULAR HGB CONC 32 g/dL (32-36); MEAN CORPUSCULAR VOLUME 87 fL (80-99); MEAN PLATELET VOLUME 9.9 fL (9.0-12.2); MONOCYTES # (AUTO) 0.6 10^3/uL (0.0-1.0); MONOCYTES % (AUTO) 8 % (0-12); NEUTROPHILS # (AUTO) 4.6 10^3/uL (1.8-7.8); NEUTROPHILS % (AUTO) 65 % (42-75); PLATELET COUNT 257 10^3/uL (130-400); WHITE BLOOD COUNT 7.1 10^3/uL (4.3-11.0)
[2021-11-21 16:46] LABS: ALBUMIN 4.2 GM/DL (3.2-4.5); POTASSIUM 3.6 MMOL/L (3.6-5.0)
[2021-11-21 16:51] LABS: BILIRUBIN,TOTAL 0.4 MG/DL (0.1-1.0)
[2021-11-21 16:53] LABS: CREATININE SERUM 0.67 MG/DL (0.60-1.30)
[2021-11-21 17:15] LABS: BILIRUBIN,URINE NEGATIVE (NEGATIVE); CLARITY,URINE CLEAR; COLOR,URINE YELLOW; GLUCOSE, URINE (UA) NEGATIVE (NEGATIVE); KETONES,URINE NEGATIVE (NEGATIVE); LEUKOCYTE ESTERASE ,URINE NEGATIVE (NEGATIVE); NITRITE,URINE NEGATIVE (NEGATIVE); PROTEIN,URINE NEGATIVE (NEGATIVE)
[2021-11-21 17:25] LABS: BACTERIA,URINE NEGATIVE /HPF; SQUAMOUS EPITHELIAL CELL,UR 0-2 /HPF; WBC,URINE 0-2 /HPF
--- NOTE | 2021-11-21 17:40 | Diagnostic Imaging Report ---
REASON FOR EXAM: Abdominal pain. COMPARISON: 10/24/2021. TECHNIQUE: frontal supine view of the abdomen FINDINGS: The bowel gas pattern is nondistended. No large collection of free intraperitoneal air is seen. A moderate to large volume of gas and fecal material are present in the colon. No abnormal extraosseous calcifications are present. IUD is in place. The osseous structures are age-appropriate. IMPRESSION: 1. No evidence of bowel obstruction or large collection of free intraperitoneal air. 2. Moderate to large volume of stool in the colon suggestive of constipation. Dictated by: Dictated on workstation # [id number]
[2021-11-21 17:47] VITALS: BP 127/84
== END 2021-11-21 17:54 | disposition home or self-care (01) ==
LOC: EDUNIT# 14:57 → ER 14:58
DX: A04.8 Other specified bacterial intestinal infections (principal); Z87.19 Personal history of other diseases of the digestive system; Z79.2 Long term (current) use of antibiotics; Z79.899 Other long term (current) drug therapy; Z88.1 Allergy status to other antibiotic agents
CPT/HCPCS: 36415; 74018; 80053; 81000; 83690; 84703; 85025; 86141

== ENCOUNTER → 2021-11-27 | Outpatient (CLI) | payer BC ==
[~2021-11-27] VITALS: Ht 162.5 cm; Wt 81.8 kg
[~2021-11-27] MED LIST changes: +PANT40TA52 PO
== END | disposition home or self-care (01) ==
LOC: PREOP 06:23
PROVIDERS: ATTEND Surgery
DX: Z01.818 Encounter for other preprocedural examination (principal)

== ENCOUNTER → 2021-11-29 | Outpatient (CLI) | payer BC ==
--- NOTE | 2021-11-29 09:33 | Diagnostic Imaging Report ---
INDICATION: Epigastric pain. Gallbladder sonography performed in a routine fashion. There is no prior study for comparison. The liver shows normal echogenicity without focal lesion. Portal vein is patent. Gallbladder is unremarkable with no stones or wall thickening. Common duct measured 3 mm. Pancreas is not well seen due to overlying gas. Visualized portions of the aorta and IVC are normal. Right kidney appeared normal measuring 11.0 cm in length. There is no ascites. IMPRESSION: Unremarkable ultrasound of the gallbladder and right upper quadrant. Dictated by: Dictated on workstation # [id number]
== END ==
LOC: RAD 08:30
PROVIDERS: ATTEND Surgery
DX: R10.13 Epigastric pain (principal)
CPT/HCPCS: 76705

== ENCOUNTER 2021-12-03 10:54 | Day surgery (SDC) | payer BC ==
[~2021-12-03] VITALS: Ht 162 cm; Wt 81.8 kg
[2021-12-03] MEDS ORDERED: LACTATED RINGERS 1,000 ML IV ONE (10:58)
[2021-12-03] MEDS ORDERED: LACTATED RINGERS 1,000 ML IV STA (11:02)
[2021-12-03 11:15] VITALS: BP 114/78
[2021-12-03] MEDS ORDERED: HURRICAINE EXT TUBE (BENZOCAINE) XX PRN (11:15)
--- NOTE | 2021-12-03 11:30 | Progress Note-Pre Operative ---
Pre-Operative Progress Note H&P Reviewed The H&P was reviewed, patient examined and no changes noted. Date Seen by Provider: Dec 03, 2021 Time Seen by Provider: : Date H&P Reviewed: Dec 03, 2021 Time H&P Reviewed: :29 Pre-Operative Diagnosis: epigastric pain, h pylori RAINA BENNETT DO Dec 03, 2021 11:30
[2021-12-03] MEDS ORDERED: proPOfol 200 MG/20 ML (DIPRIVAN) VIAL IV ONE ×2 (13:03→13:10)
[2021-12-03 13:20] VITALS: BP 106/59
--- NOTE | 2021-12-03 13:21 | Anesthesia-General Post-Op ---
MAC Patient Condition Mental Status/LOC: Same as Preop Cardiovascular: Satisfactory Nausea/Vomiting: Absent Respiratory: Satisfactory Pain: Controlled Complications: Absent Post Op Complications Complications None Follow Up Care/Instructions Patient Instructions None needed. Anesthesiology Discharge Order Discharge Order Patient is doing well, no complaints, stable vital signs, no apparent adverse anesthesia problems. No complications reported per nursing. REYES MAURER CRNA Dec 03, 2021 13:20
--- NOTE | 2021-12-03 13:24 | Progress Note-Post Operative ---
Post-Operative Progess Note Surgeon (s)/Accounts Adjustable Clerk (s) Surgeon RAINA BENNETT DO Accounts Adjustable Clerk: na Pre-Operative Diagnosis epigastric pain, h pylori Post-Operative Diagnosis slight gastritis Procedure & Operative Findings Date of Procedure 12/03/21 Procedure Performed/Findings egd c biopsies Anesthesia Type per wallpaper scraper Estimated Blood Loss Estimated blood loss (mL): none Specimens/Packing Specimens Removed antrum, ge RAINA BENNETT DO Dec 03, 2021 13:24
[2021-12-03 13:25] VITALS: BP 108/63
--- NOTE | 2021-12-03 13:25 | Discharge Inst-Simple/Standard ---
Discharge Inst-Standard Patient Instructions/Follow Up Plan of Care/Instructions/FU: 2 weeks Kevin Activity as Tolerated: Yes Discharge Diet: Regular Diet RAINA BENNETT DO Dec 03, 2021 13:25
[2021-12-03 13:45] VITALS: BP 120/78
[2021-12-03 14:10] VITALS: BP 120/78
--- NOTE | 2021-12-03 22:05 | OPERATIVE REPORT ---
DATE OF SERVICE: 12/03/2021 PREOPERATIVE DIAGNOSES: Epigastric abdominal pain, H. pylori. POSTOPERATIVE DIAGNOSIS: Slight gastritis. SURGEON: Raina Brown DO ANESTHESIA: Per UNIFIED COMMUNICATIONS ARCHITECT. PROCEDURE: EGD with biopsies. INDICATIONS: The patient is a 21-year-old female with epigastric abdominal pain and recently had blood test that was consistent with H. pylori and she was treated for it. She was recommended to have EGD. She understands risks and benefits of procedure and wishes to proceed. Consent was signed in the chart. DESCRIPTION OF PROCEDURE: The patient was taken to the endoscopy suite, placed in left lateral recumbent position. Timeout was performed. Scope was inserted in mouth, down the esophagus, stomach and into the duodenum without difficulty. No polyps, masses or ulcerations within the duodenum. Scope was slowly retracted back into the stomach where it was further insufflated. Slight appearance of gastritis present. Biopsy of the antrum was obtained. Scope was retroflexed noting no other pathology. Scope was returned to its normal position and slowly withdrawn to distal esophagus. Biopsy of the GE junction was obtained. Scope was slowly retracted back to completely remove noting no other pathology. The patient tolerated procedure well without any complications. She was taken to recovery room in stable condition. RECOMMENDATIONS: The patient will continue on current medications. Follow up on biopsy results. She has had a gallbladder ultrasound. She is scheduled for HIDA scan for further evaluation of her gallbladder. She will follow up in our office in 2 weeks. Any issues before that be seen at that time. Job ID: [id number] DocumentID: [id number] Dictated Date: 12/03/2021 13:27:34 Stallion Keeper Date: 12/03/2021 22:05:22 Dictated By: RAINA BROWN DO
== END 2021-12-03 14:10 | disposition home or self-care (01) ==
LOC: ENDO 10:54
PROVIDERS: ATTEND Surgery
DX: K29.50 Unspecified chronic gastritis without bleeding (principal); Z86.19 Personal history of other infectious and parasitic diseases; Z88.1 Allergy status to other antibiotic agents
CPT/HCPCS: 84703; 88305

== ENCOUNTER → 2021-12-09 | Outpatient (CLI) | payer BC ==
[~2021-12-09] MED LIST changes: +CATHETER FLUSH 10 ML SYR IVP PRN
--- NOTE | 2021-12-09 12:51 | Diagnostic Imaging Report ---
INDICATION: Epigastric pain. EXAMINATION: Hepatobiliary scan, 12/09/2021. FINDINGS: After uneventful administration of 4.92 mCi of technetium Choletec intravenously, subsequent imaging is performed with prompt homogeneous uptake seen throughout the liver. Gallbladder and small bowel are seen within 30 minutes. At 30 minutes, 8 ounces of Ensure administered orally with continued imaging performed. Ejection fraction is calculated at 47.8%. IMPRESSION: 1. No obstructive process. 2. Normal ejection fraction. Dictated by: Dictated on workstation # [id number]
== END ==
LOC: CARD 10:00
PROVIDERS: ATTEND Surgery
DX: R10.13 Epigastric pain (principal)
CPT/HCPCS: 78227; A9537

== ENCOUNTER 2021-12-18 05:32 | Outpatient (CLI) | payer BC ==
[~2021-12-18] VITALS: Ht 162.5 cm; Wt 81.7 kg
[~2021-12-18 05:32] MED LIST changes: -CATHETER FLUSH 10 ML SYR IVP PRN
[2021-12-19] MEDS ORDERED: BUSP10TA95 PO (10:55)
== END 2021-12-19 13:26 | disposition home or self-care (01) ==
LOC: PREOP 05:32
PROVIDERS: ATTEND Surgery
DX: Z01.818 Encounter for other preprocedural examination (principal)

== ENCOUNTER 2021-12-26 08:48 | Day surgery (SDC) | payer BC ==
[~2021-12-26] VITALS: Ht 162.5 cm; Wt 81.7 kg
[2021-12-26] VITALS (10 sets, daily range): BP systolic 108–142; BP diastolic 58–82
[~2021-12-26 08:48] MED LIST changes: +BUSP10TA95 PO
[2021-12-26] MEDS ORDERED: ceFAZolin 2 GM IV Premixed 50 ML IV ONE (09:15)
[2021-12-26] MEDS: LACTATED RINGERS 1,000 ML IV PRN ×2 (09:20→11:45)
--- NOTE | 2021-12-26 10:04 | Progress Note-Pre Operative ---
Pre-Operative Progress Note Date of Available H&P: Dec 11, 2021 Date H&P Reviewed: Dec 26, 2021 Time H&P Reviewed: 10:03 History & Physical: H&P Reviewed, Patient Examed, No changes noted Pre-Operative Diagnosis: epigastric pain, biliary dyskinesia RAINA BENNETT DO Dec 26, 2021 10:04
[2021-12-26] MEDS ORDERED: LIDOCAINE/EPI 2% 1:200,00 (XYLOCAINE) 20 ML VIAL ONE (10:28)
[2021-12-26] MEDS ORDERED: fentaNYL INJ 100 MCG/2 ML AMP ONE (10:34)
[2021-12-26] MEDS ORDERED: ONDANSETRON 4 MG/2 ML (SDV) Z0FRAN ONE (10:34)
[2021-12-26] MEDS ORDERED: proPOfol 200 MG/20 ML (DIPRIVAN) VIAL IV ONE (10:34)
[2021-12-26] MEDS ORDERED: LIDOCAINE PF 2% 5 ML (XYLOCAINE) VIAL ONE (10:34)
[2021-12-26] MEDS ORDERED: MIDAZOLAM 2 MG/2 ML (VERSED) VIAL ONE (10:34)
[2021-12-26] MEDS ORDERED: ROCURONIUM 50 MG/5 ML (ZEMURON) VIAL IV ONE (10:34)
[2021-12-26] MEDS ORDERED: HYDROmorphone 2 MG/ML VIAL (DILAUDID) ONE (11:27)
[2021-12-26] MEDS ORDERED: IOPAMIDOL 61% 30 ML (ISOVUE 300) VIAL DUCT ONE (11:35)
[2021-12-26] MEDS ORDERED: NEOSTIGMINE (BLOXIVERZ ) 1 MG/1ML 10 ML VIAL ONE (11:54)
[2021-12-26] MEDS ORDERED: GLYCOPYRROLATE 0.2 MG/ML (ROBINUL) 2 ML VIAL ONE (11:54)
--- NOTE | 2021-12-26 11:56 | Progress Note-Post Operative ---
Post-Operative Progess Note Surgeon (s)/Bander Operator (s) Surgeon RAINA BENNETT DO Bander Operator: Dr. Little to assist in retraction dissection and closure. Pre-Operative Diagnosis epigastric pain, biliary dyskinesia Post-Operative Diagnosis same Procedure & Operative Findings Date of Procedure 12/26/21 Procedure Performed/Findings PROCEDURE: Laparoscopic cholecystectomy with intraoperative cholangiogram. COMPLICATIONS: None. PROCEDURE: The patient was taken to the operating suite and was prepped and draped in sterile fashion. A surgical pause was performed. Just superior to the umbilicus, a 12 mm incision was made. Dissection was taken down to the fascia, which was then scored and grasped with a Yaa and the abdomen was then entered. A 0 Vicryl suture was placed in a wuvmln-as-lebrs fashion and a Sotelo trocar was placed and secured. Pneumoperitoneum was achieved. A 5mm trochar place in the subxyphoid and 2 in the right upper quadrant. The gallbladder was then grasped and elevated. Adhesions to the gallbladder were taken down with blunt and cautery dissection. The cystic duct, and cystic artery were then dissected out. Clip was placed on the distal portion of the cystic duct which was then partially transected. An arrow catheter was inserted into the duct. The cholangiogram was then performed. No filing defects and contrast made its way into the duodenum. Catheter removed. Clips were placed on proximal portion of the cystic duct and then the duct was then transected. Clips were placed along the proximal and distal portion of the cystic artery which was then transected. Hook cautery was used to dissect the gallbladder from the gallbladder fossa achieving hemostasis. The gallbladder was placed in an Endobag and removed through the 12 mm trocar site. The abdomen was then reinspected. Copious amounts of irrigation were used to irrigate the abdomen and there were no signs of active bleeding. Hemostasis had been achieved. The 12 mm fascial defect was then closed with 0 Vicryl suture that had been placed in a [id number]-ir-[id number] fashion. The abdomen was then desufflated, the trocars were removed. The abdomen was then washed and dried. The skin was then closed using 4-0 Monocryl in a subcuticular fashion. The abdomen was washed and dried and Skin Affix was place over incisions. Patient tolerated the procedure well without any complications and was taken to the recovery room in stable condition. Anesthesia Type general Estimated Blood Loss Estimated blood loss (mL): minimal Specimens/Packing Specimens Removed gallbladder RAINA BENNETT DO Dec 26, 2021 11:56
[2021-12-26] MEDS ORDERED: ACHD5005 PO (11:57)
[2021-12-26] MEDS ORDERED: DOCU-143 PO (11:57)
--- NOTE | 2021-12-26 11:58 | Discharge Inst-Simple/Standard ---
Discharge Inst-Standard Discharge Medications New, Converted or Re-Newed RX: Transmitted to Pharmacy Patient Instructions/Follow Up Plan of Care/Instructions/FU: 2 weeks mike Activity as Tolerated: No Discharge Diet: Regular Diet Other Inst to Patient Follow up Appt: Make appointment for 2 weeks. Instructions: No lifting greater than 10 pounds. No strenuous activity. May shower in 24 hours, no tub bath or soaking. Use incentive spirometer at home as directed. No Smoking Skin/Wound Care: You have special glue over incision, it will fall off on it's own. Symptoms to Report: Appetite Changes, Extremity Discoloration, Numbness/Tingling, Swelling Increased, Bleeding Excessive, Eyesight Changes, Pain Increased, Urine Color Change, Constipation(Persistent), Fever over 101 degree F, Pain/Pressure in chest, Urinating Difficulty, Cough Up/Vomit Blood, Heart Beat Irreg/Pounding, Pain/Pressure in jaw, Vaginal Bleeding Increase, Cramps in feet or legs, Lightheadedness, Pain/Pressure in shoulder, Diarrhea(Persistent), Memory Changes Suddenly, Questions/Concerns, Weight gain consecutive days, Dizziness/Fainting, Nausea/Vomiting, Shortness of Breath, Weight gain over 2 pounds. If eyes or skin turn yellow notify physician. If questions or concerns contact your physician Or seek help at emergency department. RAINA BENNETT DO Dec 26, 2021 11:58
--- NOTE | 2021-12-26 12:23 | Anesthesia-General Post-Op ---
General Patient Condition Mental Status/LOC: Same as Preop Cardiovascular: Satisfactory Nausea/Vomiting: Absent Respiratory: Satisfactory Pain: Controlled Complications: Absent Post Op Complications Complications None Follow Up Care/Instructions Patient Instructions None needed. Anesthesia/Patient Condition Patient Condition Patient is doing well, no complaints, stable vital signs, no apparent adverse anesthesia problems. No complications reported per nursing. HALLEY IGNACIO CRNA Dec 26, 2021 12:23
[2021-12-26] MEDS ORDERED: morphine INJ 10 MG/ML 1ML (SYR OR VIAL) IVP ONE (12:30)
[2021-12-26] MEDS ORDERED: ONDANSETRON 4 MG/2 ML (SDV) Z0FRAN IVP PRN (12:30)
[2021-12-26] MEDS ORDERED: fentaNYL INJ 100 MCG/2 ML AMP IVP ONE (12:30)
[2021-12-26] MEDS: MEPERIDINE (DEMEROL) INJ 50 MG/ML IVP ONE ×2 (12:34→12:45)
[2021-12-26] MEDS ORDERED: HYDROcodone/APAP 5 MG/325 MG (LORTAB) TAB PO ONE (13:30)
--- NOTE | 2021-12-26 14:05 | Diagnostic Imaging Report ---
INDICATION: Fluoroscopy during intraoperative cholangiogram. FINDINGS: Fluoroscopy was provided in the OR during intraoperative cholangiogram. Contrast is being injected via the cystic duct remnant. Intrahepatic and extrahepatic bile ducts are normal in caliber. No filling defects are seen. Contrast flows into the duodenum. Total of 12 seconds of fluoroscopic time was utilized. IMPRESSION: Fluoroscopy during intraoperative cholangiogram. Dictated by: Dictated on workstation # [id number]
== END 2021-12-26 14:10 ==
LOC: SDC 08:48
PROVIDERS: ATTEND Surgery
DX: K81.1 Chronic cholecystitis (principal); K82.8 Other specified diseases of gallbladder
CPT/HCPCS: 76000; 84703; 87081

== ENCOUNTER 2022-02-17 18:12 | Emergency (ER) | payer BC ==
[~2022-02-17] VITALS: Ht 163 cm; Wt 78.0 kg
[~2022-02-17 18:12] MED LIST changes: +DOCU-143 PO
[2022-02-17 18:41] LABS: BILIRUBIN,URINE NEGATIVE (NEGATIVE); CLARITY,URINE CLOUDY; COLOR,URINE YELLOW; GLUCOSE, URINE (UA) NEGATIVE (NEGATIVE); KETONES,URINE NEGATIVE (NEGATIVE); LEUKOCYTE ESTERASE ,URINE 2+ (NEGATIVE); NITRITE,URINE NEGATIVE (NEGATIVE); PROTEIN,URINE TRACE (NEGATIVE)
[2022-02-17] MEDS ORDERED: LACTATED RINGERS 1,000 ML IV ONE (18:45)
[2022-02-17 18:53] LABS: BASOPHILS % (AUTO) 0 % (0-10); EOSINOPHILS # (AUTO) 0.3 10^3/uL (0.0-0.3); EOSINOPHILS % (AUTO) 4 % (0-10); HEMATOCRIT 41 % (35-52); HEMOGLOBIN 13.6 g/dL (11.5-16.0); LYMPHOCYTES # (AUTO) 1.8 10^3/uL (1.0-4.0); LYMPHOCYTES % (AUTO) 27 % (12-44); MEAN CORPUSCULAR HEMOGLOBIN 27 pg (25-34); MEAN CORPUSCULAR HGB CONC 33 g/dL (32-36); MEAN CORPUSCULAR VOLUME 83 fL (80-99); MEAN PLATELET VOLUME 9.7 fL (9.0-12.2); MONOCYTES # (AUTO) 0.5 10^3/uL (0.0-1.0); MONOCYTES % (AUTO) 7 % (0-12); NEUTROPHILS # (AUTO) 4.3 10^3/uL (1.8-7.8); NEUTROPHILS % (AUTO) 63 % (42-75); PLATELET COUNT 267 10^3/uL (130-400); WHITE BLOOD COUNT 6.9 10^3/uL (4.3-11.0)
[2022-02-17 18:58] LABS: BACTERIA,URINE FEW /HPF
[2022-02-17 19:01] LABS: ALBUMIN 4.3 GM/DL (3.2-4.5); POTASSIUM 3.5 MMOL/L (3.6-5.0)
[2022-02-17 19:02] LABS: CALCIUM 9.3 MG/DL (8.5-10.1)
[2022-02-17 19:03] LABS: TOTAL PROTEIN 7.3 GM/DL (6.4-8.2)
[2022-02-17 19:04] LABS: INR 1.1 (0.8-1.4); PROTHROMBIN TIME PATIENT 14.3 SEC (12.2-14.7)
[2022-02-17 19:05] LABS: BILIRUBIN,TOTAL 0.6 MG/DL (0.1-1.0)
[2022-02-17 19:07] LABS: CREATININE SERUM 0.7 MG/DL (0.60-1.30)
--- NOTE | 2022-02-17 19:07 | Diagnostic Imaging Report ---
EXAMINATION: Chest 1 view HISTORY: Chest pain COMPARISON: None available. FINDINGS: Heart size and pulmonary vasculature are normal. The lungs are clear without consolidation, pleural effusion, or pneumothorax. The osseous structures are intact. IMPRESSION: 1. No acute radiographic abnormality in the chest. Dictated by: Dictated on workstation # [id number]
[2022-02-17 19:10] LABS: MAGNESIUM 1.7 MG/DL (1.6-2.4)
[2022-02-17] MEDS ORDERED: KETOROLAC 30 MG/ML VIAL IVP ONE (20:30)
[2022-02-17] MEDS ORDERED: CEFEPIME INJECTION 1,000 MG in NS (IVPB) 50 ML IV ONE (20:30)
--- NOTE | 2022-02-17 20:30 | Diagnostic Imaging Report ---
PROCEDURE: CT urinary tract, rule out kidney stone. TECHNIQUE: Multiple contiguous axial images were obtained through the abdomen and pelvis without the use of intravenous contrast. Auto Exposure Controls were utilized during the CT exam to meet ALARA standards for radiation dose reduction. INDICATION: Flank pain. COMPARISON: 10/24/2021. FINDINGS: The heart is unremarkable. The lung bases are clear. The liver, spleen, pancreas, adrenal glands, and kidneys have a normal noncontrast CT appearance. The gallbladder surgically absent. There is no pathologically enlarged mesenteric or retroperitoneal adenopathy. The bowel loops are nondilated. The appendix is visualized in the right lower quadrant and has a normal appearance. There is no free fluid or free air. No acute osseous abnormalities. Ureters and bladder are normal. IUD is in place. There is no free air, loculated collection, or adenopathy in the pelvis. IMPRESSION: No acute abnormalities in the abdomen and pelvis. Dictated by: Dictated on workstation # [id number]
--- NOTE | 2022-02-17 20:46 | Diagnostic Imaging Report ---
REASON FOR EXAM: Abdominal pain. Fatigue. COMPARISON: CT performed the same date. TECHNIQUE: 2 views of the abdomen FINDINGS: The bowel gas pattern is nondistended. No large collection of free intraperitoneal air is seen. A moderate amount of stool is seen in the colon. No abnormal extraosseous calcifications are present. The osseous structures are age-appropriate. IUD is noted. IMPRESSION: No evidence of bowel obstruction or large collection of free intraperitoneal air. Dictated by: Dictated on workstation # [id number]
--- NOTE | 2022-02-17 20:47 | ED GU-Female ---
General Chief Complaint: - Reproductive Stated Complaint: UTI SYMPTOMS Nursing Triage Note: PT STATES UTI S/S FOR ABOUT 5 DAYS, SEEN AT [facility] FOR THE SAME, FATIGUE, FINISHED ABX FOR C DIFF LAST WEEK Source: patient History of Present Illness Date Seen by Provider: Feb 17, 2022 Time Seen by Provider: 18:35 Initial Comments PT ARRIVES VIA POV FROM HOME C/O UTI SYMPTOMS X 5 DAYS C/O BURNING ON URINATION C/O INCREASED FATIGUE--SLEEPING MORE C/O LEFT LOW BACK PAIN --RADIATES UP TO LEFT LATERAL CHEST, AND DOWN TO LEFT HIP AREA HAS HAD FEVER UP TO 100 FOR THE LAST COUPLE OF DAYS C/O HEADACHE NO NAUSEA/VOMITING/DIARRHEA, BUT HAS HAD DECREASED APPETITE WENT TO [facility] [place] [facility] TODAY AND WAS TOLD "NO INFECTION-BUT BLOOD AND KETONES" SO SENT HERE IN THE LAST 2 MONTHS, PT HAS HAD UTI'S THE LAST COUPLE OF MONTHS, AND HAS BEEN PRESCRIBED MACROBID 3 TIMES FOR THOSE INFECTIONS IN THE LAST 2 MONTHS, SHE HAS BEEN DX WITH H.PYLORI AND WAS TREATED FOR THAT, SHE HAD CHOLECYSTECTOMY, COLONOSCOPY, HAD C. DIFFICILE COLITIS. SHE FINISHED FLAGYL LAST WEEK FOR TREATMENT OF C. DIFFICILE. SHE SAW DR. BUSTAMANTE'S PERSONAL LINES UNDERWRITER FOR UTI SHORTLY AFTER SHE HAD CHOLECYSTECTOMY--OTHERWISE HAS NOT SEEN DR. BUSTAMANTE SINCE BEFORE ALL OF THE ABOVE PROBLEMS BEGAN A COUPLE OF MONTHS AGO. SHE HAS HISTORY OF ENDOMETRIOSIS AND HAS HAD SURGERY X 2 FOR THAT SHE HAS ALSO HAD A PRIOR APPENDECTOMY SHE IS ON CITALOPRAM AND OXYBUTYIN, AND WAS RECENTLY STARTED ON AMITRIPTYLENE 2 WEEKS AGO FOR SUSPECTED IBS. PCP:DR. BUSTAMANTE SURGEON: DR. BENNETT Allergies and Home Medications Allergies Coded Allergies: azithromycin (Verified Allergy, Unknown, RASH, 12/19/21) Patient Home Medication List Home Medication List Reviewed: Yes Buspirone HCl (Buspirone HCl) 10 Mg Tablet, 10 MG PO UD, (Reported) Entered as Reported by: TAMARA JIMENEZ on 12/19/21 105 Cefdinir (Cefdinir) 300 Mg Capsule, 300 MG PO BID Prescribed by: TRE HALEY on 02/17/222052 Citalopram Hydrobromide (Celexa) 40 Mg Tablet, 40 MG PO DAILY, (Reported) Entered as Reported by: RADHA PEREZ on 04/16/21 1142 Docusate Sodium (Colace) 100 Mg Capsule, 100 MG PO BID Prescribed by: RAINA BENNETT on 12/26/21 1157 Hydrocodone/Acetaminophen (Hydrocodone-Acetamin 5-325 mg) 5 Mg-325 Mg Tablet, 1 EACH PO Q4H PRN for PAIN-MODERATE (5-7) Prescribed by: RAINA BENNETT on 12/26/21 1157 Lactobacillus Acidophilus (Acidophilus Lactobacillus) 1 Billion Unit/Gram Powder, 1 GM MC QID Prescribed by: TRE HALEY on 02/17/222052 Oxybutynin Chloride (Oxybutynin Chloride ER) 10 Mg Tab.er.24, (Reported) Entered as Reported by: GISSELLE JOYCE on 04/30/20 1033 Pantoprazole Sodium (Pantoprazole Sodium) 40 Mg Tablet.dr, 40 MG PO DAILY, (Reported) Entered as Reported by: GATITO PEARSON on 11/27/21 0842 Review of Systems Review of Systems Constitutional: see HPI, fever, malaise, weakness EENTM: no symptoms reported Respiratory: no symptoms reported Cardiovascular: no symptoms reported Gastrointestinal: No abdominal pain; loss of appetite; No nausea, No vomiting Genitourinary: see HPI, burning, flank pain Musculoskeletal: see HPI, back pain Skin: no symptoms reported Psychiatric/Neurological: No Symptoms Reported Endocrine: No Symptoms Reported Hematologic/Lymphatic: No Symptoms Reported Past Pumfvwx-Ctstsj-Lmncnr Hx Patient Social History Tobacco Use?: No Smoking Status: Never a Smoker Smokeless Tobacco Frequency: Never a User Use of E-Cig and/or Vaping Sebastian: Never a User Substance use?: No Alcohol Use?: No Immunizations Up To Date First/Initial COVID19 Vaccinat: November 2020 Second COVID19 Vaccination Malik: December 2020 Third COVID19 Vaccination Date: NO 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: [employer] Seasonal Allergies Seasonal Allergies: Yes Past Medical History Surgery/Hospitalization HX: PCOS, ENDOMETERIOSIS, GALLBLADDER, APPENDIX Surgeries: Yes (EYE LID; ENDOMETRIOSIS & LYSIS OF ADHESIONS X2;COLONOSCO PY;CHOLECYSTECTOMY) Abdominal, Appendectomy, Gallbladder Respiratory: Yes (RAD) Asthma Currently Using CPAP: No Currently Using BIPAP: No Cardiac: No Neurological: Yes Headaches /Migraines : No Female Reproductive Disorders: Menstrual Problems, Endometriosis, Ovarian Cyst Sexually Transmitted Disease: Yes (HX OF CHLAMYDIA) HIV/AIDS: No Genitourinary: Yes (POST SURGERY IN 2019 "SLEEPY BLADDER") Bladder Infection Gastrointestinal: Yes (H.PYLORI;S/P CHOLECYSTECTOMY AND APPENDECTOMY) Gastroesophageal Reflux, C-Diff, Gall Bladder Disease Musculoskeletal: No Endocrine: No HEENT: Yes (CHRONIC SINUS AND EAR INFECTIONS A YOUNG CHILD. ) Chronic Ear Infection, Tonsilitis Cancer: No Psychosocial: Yes Anxiety, Depression Integumentary: No Blood Disorders: No Adverse Reaction/Blood Tranf: No Physical Exam Vital Signs Vital Signs - First Documented 02/17/22 18:17 Temp 37.1 Pulse 100 B/P (MAP) 119/88 (98) Pulse Ox 98 O2 Delivery Room Air Capillary Refill : Less Than 3 Seconds Height, Weight, BMI Height: '" Weight: lbs. oz. kg; 29.00 BMI Method: General Appearance: WD/WN, no apparent distress, other (DOES NOT APPEAR ILL OR TO BE IN ANY DISCOMFORT OR DISTRESS. 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, no motor/sensory deficits, alert, normal mood/affect, oriented x 3 Skin: normal color, warm/dry; No rash Focused Exam Sepsis Stage: Ruled Out Reason for ruling out sepsis: DOES NOT MEET CRITERIA Possible Source: Genitouriary Lactate Level 02/17/22 18:40: Lactic Acid Level 0.69 Time of Focused Exam: 20:45 Respiratory: Normal Breath Sounds, No Accessory Muscle Use, No Respiratory Distress Cardiovascular: Regular Rate, Rhythm Capillary Refill: Less Than 3 Seconds Lactic Acid Level Within 3hrs of presentation: Admin fluids, Admin ABX, Blood cultures prior to ABX's, Focus exam, Lactate level Progress/Results/Core Measures Suspected Sepsis SIRS Temperature: Pulse: 100 Respiratory Rate: Laboratory Tests 02/17/22 18:40: White Blood Count 6.9 Blood Pressure 119 /88 Mean: 98 02/17/22 18:40: Lactic Acid Level 0.69 Laboratory Tests 02/17/22 18:40: Creatinine 0.70, INR Comment 1.1, Platelet Count 267, Total Bilirubin 0.6 Results/Orders Lab Results Laboratory Tests Test 02/17/22 18:27 02/17/22 18:40 Range/Units Urine Color YELLOW Urine Clarity CLOUDY Urine pH 6.0 5-9 Urine Specific [place] >=1.030 1.016-1.022 Urine Protein TRACE H NEGATIVE Urine Glucose (UA) NEGATIVE NEGATIVE Urine Ketones NEGATIVE NEGATIVE Urine Nitrite NEGATIVE NEGATIVE Urine Bilirubin NEGATIVE NEGATIVE Urine Urobilinogen 0.2 < = 1.0 MG/DL Urine Leukocyte Esterase 2+ H NEGATIVE Urine RBC (Auto) TRACE-I H NEGATIVE Urine RBC 10-25 H /HPF Urine WBC 10-25 H /HPF Urine Squamous Epithelial Cells 10-25 H /HPF Urine Crystals NONE /LPF Urine Bacteria FEW H /HPF Urine Casts NONE /LPF Urine Mucus NEGATIVE /LPF Urine Culture Indicated YES White Blood Count 6.9 4.3-11.0 10^3/uL Red Blood Count 4.98 3.80-5.11 10^6/uL Hemoglobin 13.6 11.5-16.0 g/dL Hematocrit 41 35-52 % Mean Corpuscular Volume 83 80-99 fL Mean Corpuscular Hemoglobin 27 25-34 pg Mean Corpuscular Hemoglobin Concent 33 32-36 g/dL Red Cell Distribution Width 13.2 10.0-14.5 % Platelet Count 267 130-400 10^3/uL Mean Platelet Volume 9.7 9.0-12.2 fL Immature Granulocyte % (Auto) 0 % Neutrophils (%) (Auto) 63 42-75 % Lymphocytes (%) (Auto) 27 12-44 % Monocytes (%) (Auto) 7 0-12 % Eosinophils (%) (Auto) 4 0-10 % Basophils (%) (Auto) 0 0-10 % Neutrophils # (Auto) 4.3 1.8-7.8 10^3/uL Lymphocytes # (Auto) 1.8 1.0-4.0 10^3/uL Monocytes # (Auto) 0.5 0.0-1.0 10^3/uL Eosinophils # (Auto) 0.3 0.0-0.3 10^3/uL Basophils # (Auto) 0.0 0.0-0.1 10^3/uL Immature Granulocyte # (Auto) 0.0 0.0-0.1 10^3/uL Prothrombin Time 14.3 12.2-14.7 SEC INR Comment 1.1 0.8-1.4 Activated Partial Thromboplast Time 34 24-35 SEC Sodium Level 135 135-145 MMOL/L Potassium Level 3.5 L 3.6-5.0 MMOL/L Chloride Level 105 98-107 MMOL/L Carbon Dioxide Level 23 21-32 MMOL/L Anion Gap 7 5-14 MMOL/L Blood Urea Nitrogen 8 7-18 MG/DL Creatinine 0.70 0.60-1.30 MG/DL Estimat Glomerular Filtration Rate 127 BUN/Creatinine Ratio 11 Glucose Level 111 H 70-105 MG/DL Lactic Acid Level 0.69 0.50-2.00 MMOL/L Calcium Level 9.3 8.5-10.1 MG/DL Corrected Calcium 9.1 8.5-10.1 MG/DL Magnesium Level 1.7 1.6-2.4 MG/DL Total Bilirubin 0.6 0.1-1.0 MG/DL Aspartate Amino Transf (AST/SGOT) 20 5-34 U/L Alanine Aminotransferase (ALT/SGPT) 18 0-55 U/L Alkaline Phosphatase 57 40-136 U/L Total Protein 7.3 6.4-8.2 GM/DL Albumin 4.3 3.2-4.5 GM/DL Amylase Level 32 25-125 U/L Lipase 11 8-78 U/L Procalcitonin 0.02 <0.10 NG/ML Serum Test, Qualitative NEGATIVE NEGATIVE My Orders Orders - TRE HALEY DO Urine Bedside (02/17/22 18:36) Ua Culture If Indicated (02/17/22 18:36) Ed Iv/Invasive Line Start (02/17/22 18:42) Monitor-Rhythm Ecg Trace Only (02/17/22 18:42) Amylase (02/17/22 18:42) Cbc With Automated Diff (02/17/22 18:42) Comprehensive Metabolic Panel (02/17/22 18:42) Lactic Acid Analyzer (02/17/22 18:42) Lipase (02/17/22 18:42) Magnesium (02/17/22 18:42) Procalcitonin (Pct) (02/17/22 18:42) Protime With Inr (02/17/22 18:42) Partial Thromboplastin Time (02/17/22 18:42) Blood Culture (02/17/22 18:42) Sputum Culture (02/17/22 18:42) Chest 1 View, Ap/Pa Only (02/17/22 18:42) Ed Iv/Invasive Line Start (02/17/22 18:42) Ed Iv/Invasive Line Start (02/17/22 18:42) Vital Signs Adult Sepsis Patie Q15M (02/17/22 18:42) O2 (02/17/22 18:42) Remove Rings In Anticipation O (02/17/22 18:42) Ed Iv/Invasive Line Start (02/17/22 18:42) Lactated Ringers (Lr 1000 Ml Iv Solution (02/17/22 18:45) Hcg,Qualitative Serum (02/17/22 18:45) Urine Culture (02/17/22 18:27) Ct Abd/Pelvis Wo(Kidney Stone) (02/17/22 20:06) Abdomen/Kub 1view (02/17/22 20:06) Cefepime Injection (Maxipime Injection) (02/17/22 20:30) Ketorolac Injection (Toradol Injection) (02/17/22 20:30) Medications Given in ED Current Medications Medications Dose Ordered Sig/Radhames Route Start Time Stop Time Status Last Admin Dose Admin Cefepime HCl 1000 mg/Sodium Chloride 50 ml @ 100 mls/hr ONCE ONCE IV 02/17/22 20:30 02/17/22 20:59 DC 02/17/22 20:39 100 MLS/HR Ketorolac Tromethamine 30 mg ONCE ONCE IVP 02/17/22 20:30 02/17/22 20:31 DC 02/17/22 20:39 30 MG Lactated Ringer's 1,000 ml @ 0 mls/hr Q0M ONCE IV 02/17/22 18:45 02/17/22 18:46 DC 02/17/22 18:58 1,000 MLS/HR Vital Signs/I&O 02/17/22 02/17/22 18:17 21:22 Temp 37.1 Pulse 100 87 B/P (MAP) 119/88 (98) 122/74 Pulse Ox 98 98 O2 Delivery Room Air Room Air Capillary Refill : Less Than 3 Seconds Blood Pressure Mean: 98 Progress Note : Progress Note SEPSIS PROTOCOL INITIATED GIVEN IV FLUIDS AND ANTIBIOTICS AND TORADOL FOR PAIN Diagnostic Imaging Comments CXR--PER RADIOLOGIST REPORT AT 2044 FINDINGS: Heart size and pulmonary vasculature are normal. The lungs are clear without consolidation, pleural effusion, or pneumothorax. The osseous structures are intact. IMPRESSION: 1. No acute radiographic abnormality in the chest. KUB--PER RADIOLOGIST REPORT AT 2044 FINDINGS: The bowel gas pattern is nondistended. No large collection of free intraperitoneal air is seen. A moderate amount of stool is seen in the colon. No abnormal extraosseous calcifications are present. The osseous structures are age-appropriate. IUD is noted. IMPRESSION: No evidence of bowel obstruction or large collection of free intraperitoneal air. CT ABDOMEN / PELVIS--PER RADIOLOGIST REPORT AT 2044 FINDINGS: The heart is unremarkable. The lung bases are clear. The liver, spleen, pancreas, adrenal glands, and kidneys have a normal noncontrast CT appearance. The gallbladder surgically absent. There is no pathologically enlarged mesenteric or retroperitoneal adenopathy. The bowel loops are nondilated. The appendix is visualized in the right lower quadrant and has a normal appearance. There is no free fluid or free air. No acute osseous abnormalities. Ureters and bladder are normal. IUD is in place. There is no free air, loculated collection, or adenopathy in the pelvis. IMPRESSION: No acute abnormalities in the abdomen and pelvis. Reviewed: Reviewed by Me Departure Impression Primary Impression: Urinary tract infection Additional Impression: RECENT C. DIFFICILE INFECTION Disposition: 01 HOME, SELF-CARE Condition: Stable Departure-Patient Inst. Decision time for Depature: 20:50 Referrals: AARON BUSTAMANTE DO (PCP/Family) Primary Care Physician Patient Instructions: Urinary Tract Infection, Adult (DC) Add. Discharge Instructions: LOTS OF CLEAR LIQUIDS--NO COFFEE, POP OR TEA FOLLOW UP WITH DR. BUSTAMANTE IN 3-4 DAYS FOR FURTHER CARE All discharge instructions reviewed with patient and/or family. Voiced understanding. Scripts Cefdinir (Cefdinir) 300 Mg Capsule 300 MG PO BID, #20 CAP Prov: TRE HALEY DO 02/17/22 Lactobacillus Acidophilus (Acidophilus Lactobacillus) 1 Billion Unit/Gram Powder 1 GM MC QID for 10 Days, #1 EA Prov: TRE HALEY DO 02/17/22 TRE HALEY DO Feb 17, 2022 20:46
[2022-02-17] MEDS ORDERED: CEFD300C3 PO (20:53)
[2022-02-17] MEDS ORDERED: LACT1POW8 MC (20:53)
[2022-02-17 21:22] VITALS: BP 122/74
== END 2022-02-17 21:22 | disposition home or self-care (01) ==
LOC: EDUNIT# 18:12 → ER 18:14
DX: N39.0 Urinary tract infection, site not specified (principal); B96.89 Other specified bacterial agents as the cause of diseases classified elsewhere
CPT/HCPCS: 36415; 71045; 74018; 74176; 80053; 81000; 82150; 83605; 83690; 83735; 84145; 84703; 85025; 85610; 85730; 87040; 87088; 93041

== ENCOUNTER 2022-06-10 14:19 | Emergency (ER) | payer OTHER ==
[~2022-06-10] VITALS: Ht 162.6 cm; Wt 75.6 kg
[~2022-06-10 14:19] MED LIST changes: +CEFD300C3 PO; +LACT1POW8 MC; +MAGN296S68 PO; -MAGN296S71 PO
[2022-06-10] MEDS ORDERED: NS IV 1000 ML 1,000 ML IV STA (14:32)
--- NOTE | 2022-06-10 14:39 | ED Cardiac General ---
History of Present Illness General Stated Complaint: CHEST PRESSURE | CHEST PAIN Source: patient Exam Limitations: no limitations History of Present Illness Date Seen by Provider: Jun 10, 2022 Time Seen by Provider: 14:25 Initial Comments Here with report of chest pressure and fast heart rate that has been intermittent very high over the last week and at a minimum remains fast during that timeframe. States rate is 100 up to 190. Reports mild pressure but does not have significant respiratory difficulty. Does report dizziness with this. States that she was in the shower the other day and had actually sit down to wash her hair because she became dizzy. 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 Denies any use of stimulants. She has an IUD in place and does have history of endometriosis. Has never had anything like this before. Does have older family members that have had significant cardiac problems. Timing/Duration: 1 week, changing over time Severity: moderate Prior CP/Workup: no prior chest pain NTG SL LEAF BINNER: No ASA po LEAF BINNER: No Associated Systoms: Chest Pain; No Cough, No Nausea/Vomiting, No Shortness of Air, No Weakness Allergies and Home Medications Allergies Coded Allergies: azithromycin (Verified Allergy, Unknown, RASH, 12/19/21) Patient Home Medication List Home Medication List Reviewed: Yes Buspirone HCl (Buspirone HCl) 10 Mg Tablet, 10 MG PO UD, (Reported) Entered as Reported by: TAMARA JIMENEZ on 12/19/21 1055 Cefdinir (Cefdinir) 300 Mg Capsule, 300 MG PO BID Prescribed by: TRE HALEY on 02/17/222052 Citalopram Hydrobromide (Celexa) 40 Mg Tablet, 40 MG PO DAILY, (Reported) Entered as Reported by: RADHA PEREZ on 04/16/21 1142 Docusate Sodium (Colace) 100 Mg Capsule, 100 MG PO BID Prescribed by: RAINA BENNETT on 12/26/21 115 Hydrocodone/Acetaminophen (Hydrocodone-Acetamin 5-325 mg) 5 Mg-325 Mg Tablet, 1 EACH PO Q4H PRN for PAIN-MODERATE (5-7) Prescribed by: RAINA BENNETT on 12/26/21 115 Lactobacillus Acidophilus (Acidophilus Lactobacillus) 1 Billion Unit/Gram Powder, 1 GM MC QID Prescribed by: TRE HALEY on 10/10/22 2053 Oxybutynin Chloride (Oxybutynin Chloride ER) 10 Mg Tab.er.24, (Reported) Entered as Reported by: GISSELLE JOYCE on 04/30/20 1033 Pantoprazole Sodium (Pantoprazole Sodium) 40 Mg Tablet.dr, 40 MG PO DAILY, (Reported) Entered as Reported by: GATITO PEARSON on 11/27/21 0842 Review of Systems Review of Systems Constitutional: see HPI; No chills, No fever EENTM: No Nose Congestion, No Throat Pain Respiratory: Denies Cough, Denies Shortness of Air Cardiovascular: Chest Pain, Irregular Heart Rate, Lightheadedness Gastrointestinal: Denies Nausea, Denies Vomiting Psychiatric/Neurological: Denies Anxiety, Denies Depressed Endocrine: Denies Intolerance to Cold, Denies Intolerance to Heat Past Nnhcknu-Wyiabx-Nbnqgf Hx Patient Social History Tobacco Use?: No Substance use?: No Alcohol Use?: No Immunizations Up To Date First/Initial COVID19 Vaccinat: November 2020 Second COVID19 Vaccination Malik: December 2020 Third COVID19 Vaccination Date: NO Seasonal Allergies Seasonal Allergies: Yes Past Medical History Surgery/Hospitalization HX: PCOS, ENDOMETERIOSIS, GALLBLADDER, APPENDIX Surgeries: Yes (EYE LID; ENDOMETRIOSIS & LYSIS OF ADHESIONS X2;COLONOSCOPY;CHOLECYSTECTOMY) Abdominal, Appendectomy, Gallbladder Respiratory: Yes (RAD) Asthma Currently Using CPAP: No Currently Using BIPAP: No Cardiac: No Neurological: Yes Headaches /Migraines Female Reproductive Disorders: Menstrual Problems, Endometriosis, Ovarian Cyst Sexually Transmitted Disease: Yes (HX OF CHLAMYDIA) HIV/AIDS: No Genitourinary: Yes (POST SURGERY IN 2019 "SLEEPY BLADDER") Bladder Infection Gastrointestinal: Yes (H.PYLORI;S/P CHOLECYSTECTOMY AND APPENDECTOMY) Gastroesophageal Reflux, C-Diff, Gall Bladder Disease Musculoskeletal: No Endocrine: No HEENT: Yes (CHRONIC SINUS AND EAR INFECTIONS A YOUNG CHILD. ) Chronic Ear Infection, Tonsilitis Cancer: No Psychosocial: Yes Anxiety, Depression Integumentary: No Blood Disorders: No Adverse Reaction/Blood Tranf: No Family Medical History Reviewed Nursing Family Hx Physical Exam Vital Signs Vital Signs - First Documented 06/10/22 14:23 Temp 36.3 Pulse 109 Resp 14 B/P (MAP) 115/88 (97) Pulse Ox 99 O2 Delivery Room Air Capillary Refill : Height, Weight, BMI Height: '" Weight: lbs. oz. kg; 29.00 BMI Method: General Appearance: No Apparent Distress, WD/WN HEENT: PERRL/EOMI, Pharynx Normal Neck: Non Tender, Supple Respiratory: Lungs Clear, Normal Breath Sounds Cardiovascular: No Murmur, Tachycardia Gastrointestinal: Non Tender, Soft Extremity: Normal Inspection, Normal Range of Motion, Non Tender, No Calf Tenderness Neurologic/Psychiatric: Alert, Oriented x3 Skin: Normal Color, Warm/Dry Progress/Results/Core Measures Results/Orders Lab Results Laboratory Tests Test 06/10/22 14:40 Range/Units White Blood Count 6.6 4.3-11.0 10^3/uL Red Blood Count 4.76 3.80-5.11 10^6/uL Hemoglobin 13.7 11.5-16.0 g/dL Hematocrit 40 35-52 % Mean Corpuscular Volume 84 80-99 fL Mean Corpuscular Hemoglobin 29 25-34 pg Mean Corpuscular Hemoglobin Concent 34 32-36 g/dL Red Cell Distribution Width 12.5 10.0-14.5 % Platelet Count 249 130-400 10^3/uL Mean Platelet Volume 9.6 9.0-12.2 fL Immature Granulocyte % (Auto) 1 % Neutrophils (%) (Auto) 59 42-75 % Lymphocytes (%) (Auto) 29 12-44 % Monocytes (%) (Auto) 8 0-12 % Eosinophils (%) (Auto) 3 0-10 % Basophils (%) (Auto) 1 0-10 % Neutrophils # (Auto) 3.9 1.8-7.8 10^3/uL Lymphocytes # (Auto) 1.9 1.0-4.0 10^3/uL Monocytes # (Auto) 0.6 0.0-1.0 10^3/uL Eosinophils # (Auto) 0.2 0.0-0.3 10^3/uL Basophils # (Auto) 0.0 0.0-0.1 10^3/uL Immature Granulocyte # (Auto) 0.0 0.0-0.1 10^3/uL D-Dimer < 0.27 0.00-0.49 UG/ML Sodium Level 140 135-145 MMOL/L Potassium Level 3.3 L 3.6-5.0 MMOL/L Chloride Level 106 98-107 MMOL/L Carbon Dioxide Level 24 21-32 MMOL/L Anion Gap 10 5-14 MMOL/L Blood Urea Nitrogen 8 7-18 MG/DL Creatinine 0.68 0.60-1.30 MG/DL Estimat Glomerular Filtration Rate 127 BUN/Creatinine Ratio 12 Glucose Level 114 H 70-105 MG/DL Calcium Level 9.2 8.5-10.1 MG/DL Corrected Calcium 9.2 8.5-10.1 MG/DL Magnesium Level 1.8 1.6-2.4 MG/DL Total Bilirubin 0.7 0.1-1.0 MG/DL Aspartate Amino Transf (AST/SGOT) 13 5-34 U/L Alanine Aminotransferase (ALT/SGPT) 13 0-55 U/L Alkaline Phosphatase 61 40-136 U/L Troponin I < 0.028 <0.028 NG/ML Total Protein 7.3 6.4-8.2 GM/DL Albumin 4.0 3.2-4.5 GM/DL TSH [place] Testing 1.62 0.35-4.94 UIU/ML My Orders Orders - BAR RUSH MD Ekg Tracing (06/10/22 14:32) Monitor-Rhythm Ecg Trace Only (06/10/22 14:32) Chest 1 View, Ap/Pa Only (06/10/22 14:32) Ns Iv 1000 Ml (Sodium Chloride 0.9%) (06/10/22 14:32) Ed Iv/Invasive Line Start (06/10/22 14:32) Cbc With Automated Diff (06/10/22 14:32) Comprehensive Metabolic Panel (06/10/22 14:32) Fibrin Degradation Products (06/10/22 14:32) Magnesium (06/10/22 14:32) Thyroid Analyzer (06/10/22 14:32) Troponin I [place] (06/10/22 14:32) Ketorolac Injection (Toradol Injection) (06/10/22 15:58) Lidocaine 2% Viscous 15 Ml (Xylocaine Vi (06/10/22 16:00) Antacid Suspension (Mylanta Suspension (06/10/22 16:00) Vital Signs/I&O 06/10/22 14:23 Temp 36.3 Pulse 109 Resp 14 B/P (MAP) 115/88 (97) Pulse Ox 99 O2 Delivery Room Air Progress Progress Note : Progress Note Seen and evaluated. IV, labs including CBC, CMP, troponin and thyroid study. EKG and chest x-ray ordered. Normal saline 1 L bolus ordered. Monitor patient. Differential includes tachycardic syndrome, thyroid dysfunction, electrolyte abnormality, dysrhythmia 1444: Chest x-ray shows no acute findings including infiltrate on my interpretation. Pending radiology review. 1456: CBC shows normal white count and normal hemoglobin without left shift. 1600: Troponin is negative. Patient is having some burning chest pain. Toradol 30 mg IV and GI cocktail ordered. D-dimer is negative. Chemistry does not show any significant abnormalities although potassium is slightly low. Renal function and liver enzymes are normal. We are pending thyroid study. Heart rate currently 80-83 while resting. Monitor patient. 1638: Patient is pain-free now and would like to go home. We are still pending thyroid study. As soon as that is back and hopefully negative then we would be able to discharge her. This may be component of anxiety and reflux disease and we will talk about pixu-tbw-qvxrble therapy for that. 1727: The instrumentation for thyroid studies is currently delayed. Patient states she feels much better and her heart rate remains in the 80s. At this time I believe it safe to discharge home and we will call her if there is any problems. Patient was fine with that. Discharged home with return precautions. Patient verbalized understanding instructions and agreement with plan. 1751: Thyroid study completed and is normal. Patient notified. Initial ECG Impression Date: Jun 10, 2022 Initial ECG Impression Time: 14:34 Initial ECG Rate: 91 Initial ECG Rhythm: Normal Sinus Comment Sinus rhythm with normal axis. No evidence of ST elevation [place]. Normal QRS duration. Interpreted by me. Diagnostic Imaging Diagonstic Imaging: Xray Plain Films/CT/US/NM/MRI: chest Comments [facility]. [place], [place] NAME: DIANE MONTERO [facility] REC#: [id number] PT STATUS: REG ER : 2000 PHYSICIAN: BAR RUSH MD ADMIT DATE: 06/10/22/ER Draft Date of Exam:06/10/22 CHEST 1 VIEW, AP/PA ONLY INDICATION: Chest pain Portable chest 2:40 PM Heart and mediastinum are normal. Lungs are clear. There are no effusions or pneumothoraces. IMPRESSION: Negative chest. Dictated on workstation # [id number] Dict: 06/10/22 1445 Trans: 06/10/22 1447 [facility] [id number] Interpreted by: BAR LEWIS MD Electronically signed by: Reviewed: Reviewed by Me Departure Impression Primary Impression: Chest pain Qualified Codes: R07.9 - Chest pain, unspecified Additional Impression: Epigastric pain Disposition: HOME, SELF-CARE Condition: Improved Departure-Patient Inst. Decision time for Depature: 16:38 Referrals: AARON BUSTAMATNE DO (PCP/Family) Primary Care Physician Patient Instructions: Chest Pain (DC), Acid Reflux, Adult and Adolescent ED Add. Discharge Instructions: You may take fulg-mfs-qneytvo Pepcid or the generic famotidine 20 mg once or twice daily for the next several days as needed to reduce stomach upset. Follow-up with your doctor this week for recheck and further evaluation. Drink plenty of fluids and stick to light, nongreasy, nonspicy diet. Return for worse pain, fever, vomiting, weakness, breathing problems or other concerns as needed. You may take Tylenol/acetaminophen 1000 mg every 6-8 hours as needed for pain. We will call you about the thyroid study when that processes. Work/School Note: Work Release Form Date Seen in the Emergency Department: Jun 10, 2022 Return to Work: Jun 11, 2022 Restrictions: No Restrictions BAR RUSH MD Jun 10, 2022 14:39
--- NOTE | 2022-06-10 14:48 | Diagnostic Imaging Report ---
INDICATION: Chest pain Portable chest 2:40 PM Heart and mediastinum are normal. Lungs are clear. There are no effusions or pneumothoraces. IMPRESSION: Negative chest. Dictated by: Dictated on workstation # [id number]
[2022-06-10 14:50] LABS: BASOPHILS % (AUTO) 1 % (0-10); EOSINOPHILS # (AUTO) 0.2 10^3/uL (0.0-0.3); EOSINOPHILS % (AUTO) 3 % (0-10); HEMATOCRIT 40 % (35-52); HEMOGLOBIN 13.7 g/dL (11.5-16.0); LYMPHOCYTES # (AUTO) 1.9 10^3/uL (1.0-4.0); LYMPHOCYTES % (AUTO) 29 % (12-44); MEAN CORPUSCULAR HEMOGLOBIN 29 pg (25-34); MEAN CORPUSCULAR HGB CONC 34 g/dL (32-36); MEAN CORPUSCULAR VOLUME 84 fL (80-99); MEAN PLATELET VOLUME 9.6 fL (9.0-12.2); MONOCYTES # (AUTO) 0.6 10^3/uL (0.0-1.0); MONOCYTES % (AUTO) 8 % (0-12); NEUTROPHILS # (AUTO) 3.9 10^3/uL (1.8-7.8); NEUTROPHILS % (AUTO) 59 % (42-75); PLATELET COUNT 249 10^3/uL (130-400); WHITE BLOOD COUNT 6.6 10^3/uL (4.3-11.0)
[2022-06-10 15:02] LABS: CHLORIDE 106 MMOL/L (98-107); POTASSIUM 3.3 MMOL/L (3.6-5.0); SODIUM 140 MMOL/L (135-145)
[2022-06-10 15:03] LABS: CALCIUM 9.2 MG/DL (8.5-10.1)
[2022-06-10 15:04] LABS: GLUCOSE 114 MG/DL (70-105); TOTAL PROTEIN 7.3 GM/DL (6.4-8.2)
[2022-06-10 15:05] LABS: CARBON DIOXIDE 24 MMOL/L (21-32)
[2022-06-10 15:06] LABS: BILIRUBIN,TOTAL 0.7 MG/DL (0.1-1.0)
[2022-06-10 15:07] LABS: ALKALINE PHOSPHATASE 61 U/L (40-136); CREATININE SERUM 0.68 MG/DL (0.60-1.30); GFR ESTIMATED 127
[2022-06-10 15:09] LABS: BUN/CREATININE RATIO 12
[2022-06-10 15:10] LABS: ALANINE AMINOTRANSFERASE 13 U/L (0-55); MAGNESIUM 1.8 MG/DL (1.6-2.4)
[2022-06-10] MEDS ORDERED: KETOROLAC 30 MG/ML VIAL IVP STA (15:58)
[2022-06-10] MEDS ORDERED: ANTACID SUSP 30 ML UDC (MYLANTA) PO ONE (16:00)
[2022-06-10] MEDS ORDERED: LIDOCAINE 2% VISCOUS 15 ML UDC PO ONE (16:00)
[2022-06-10 17:35] VITALS: BP 115/78
[2022-06-10 17:48] LABS: TSH (THYROID ANALYZER) 1.62 UIU/ML (0.35-4.94)
== END 2022-06-10 17:35 | disposition home or self-care (01) ==
LOC: EDUNIT# 14:19 → ER 14:22
DX: R07.89 Other chest pain (principal); R10.13 Epigastric pain
CPT/HCPCS: 36415; 71045; 80053; 83735; 84443; 84484; 85025; 85379; 93005; 93041

== ENCOUNTER → 2022-06-18 | Outpatient (CLI) | payer OTHER | LOC: CARD 07:57 | PROVIDERS: ATTEND Nurse Practitioner Family | DX: R00.2 Palpitations (principal) | CPT/HCPCS: 93225; 93226 ==

== ENCOUNTER 2022-06-23 18:06 | Emergency (ER) | payer OTHER ==
[~2022-06-23] VITALS: Ht 163 cm; Wt 77.0 kg
[2022-06-23 18:28] LABS: BASOPHILS % (AUTO) 1 % (0-10); EOSINOPHILS # (AUTO) 0.4 10^3/uL (0.0-0.3); EOSINOPHILS % (AUTO) 5 % (0-10); HEMATOCRIT 40 % (35-52); HEMOGLOBIN 13.7 g/dL (11.5-16.0); LYMPHOCYTES # (AUTO) 2.1 10^3/uL (1.0-4.0); LYMPHOCYTES % (AUTO) 32 % (12-44); MEAN CORPUSCULAR HEMOGLOBIN 29 pg (25-34); MEAN CORPUSCULAR HGB CONC 34 g/dL (32-36); MEAN CORPUSCULAR VOLUME 84 fL (80-99); MEAN PLATELET VOLUME 9.7 fL (9.0-12.2); MONOCYTES # (AUTO) 0.5 10^3/uL (0.0-1.0); MONOCYTES % (AUTO) 7 % (0-12); NEUTROPHILS # (AUTO) 3.8 10^3/uL (1.8-7.8); NEUTROPHILS % (AUTO) 55 % (42-75); PLATELET COUNT 269 10^3/uL (130-400); WHITE BLOOD COUNT 6.8 10^3/uL (4.3-11.0)
[2022-06-23] MEDS ORDERED: LORazepam INJ 2 MG/ML (ATIVAN) VIAL IVP ONE (18:30)
[2022-06-23] MEDS ORDERED: LIDOCAINE 2% VISCOUS 15 ML UDC PO ONE (18:30)
[2022-06-23] MEDS ORDERED: ANTACID SUSP 30 ML UDC (MYLANTA) PO ONE (18:30)
--- NOTE | 2022-06-23 18:30 | ED Chest Pain ---
General Chief Complaint: Chest Pain Stated Complaint: CP Nursing Triage Note: Patient to ER via EMS. Ems reports patient called for chestpain. 10 on numeric pain scale. Patient states "I was getting ready for work and my chest hurt and I couldn't move" History of Present Illness Date Seen by Provider: Jun 23, 2022 Time Seen by Provider: 18:24 Initial Comments Patient is a 22-year-old anxious appearing female here to ER with complaint of chest pain. She reports pain 10 out of 10 denies radiation to left arm back or neck. Patient states symptoms are better when she lies down but otherwise pain seems to be constant. She describes the pain as sharp to the midsternal area. Patient reports similar symptoms in the past month and she was seen in the ER and was sent home a Holter monitor and an appointment with her sales service route manager. EKG shows normal sinus rhythm heart rate 80. Patient reports medical history of IBS and endometriosis. Timing/Duration: constant Severity/Quality: severe Location: central Radiation: no radiation Activities at Onset: none Prior CP/Workup: other Modifying Factors: improves with lying down ASA po MARRIAGE AND FAMILY COUNSELOR: Yes NTG SL MARRIAGE AND FAMILY COUNSELOR: No Associated Symptoms: denies symptoms Allergies and Home Medications Allergies Coded Allergies: azithromycin (Verified Allergy, Unknown, RASH, 12/19/21) Patient Home Medication List Home Medication List Reviewed: Yes Buspirone HCl (Buspirone HCl) 10 Mg Tablet, 10 MG PO UD, (Reported) Entered as Reported by: TAMARA JIMENEZ on 12/19/21 1055 Cefdinir (Cefdinir) 300 Mg Capsule, 300 MG PO BID Prescribed by: TRE HALEY on 02/17/222052 Citalopram Hydrobromide (Celexa) 40 Mg Tablet, 40 MG PO DAILY, (Reported) Entered as Reported by: RADHA PEREZ on 04/16/21 1142 Docusate Sodium (Colace) 100 Mg Capsule, 100 MG PO BID Prescribed by: RAINA BENNETT on 12/26/21 1157 Hydrocodone/Acetaminophen (Hydrocodone-Acetamin 5-325 mg) 5 Mg-325 Mg Tablet, 1 EACH PO Q4H PRN for PAIN-MODERATE (5-7) Prescribed by: RAINA BENNETT on 12/26/21 1157 Lactobacillus Acidophilus (Acidophilus Lactobacillus) 1 Billion Unit/Gram Powder, 1 GM MC QID Prescribed by: TRE HALEY on 02/17/222052 Oxybutynin Chloride (Oxybutynin Chloride ER) 10 Mg Tab.er.24, (Reported) Entered as Reported by: GISSELLE JOYCE on 04/30/20 1033 Pantoprazole Sodium (Pantoprazole Sodium) 40 Mg Tablet.dr, 40 MG PO DAILY, (Reported) Entered as Reported by: GATITO PEARSON on 11/27/21 0842 Review of Systems Review of Systems Constitutional: see HPI Past Hdyvhnp-Jifszl-Szkpai Hx Patient Social History Tobacco Use?: No Substance use?: No Alcohol Use?: No Immunizations Up To Date First/Initial COVID19 Vaccinat: November 2020 Second COVID19 Vaccination Malik: December 2020 Third COVID19 Vaccination Date: November 2020 COVID19 Vaccine Electrostatic Painter: Jesusita Seasonal Allergies Seasonal Allergies: Yes Past Medical History Surgery/Hospitalization HX: PCOS, ENDOMETERIOSIS, IBS, GALLBLADDER, APPENDIX Surgeries: Yes (EYE LID; ENDOMETRIOSIS & LYSIS OF ADHESIONS X2;COLONOSCOPY;CHOLECYSTECTOMY) Abdominal, Appendectomy, Gallbladder Respiratory: Yes (RAD) Asthma Currently Using CPAP: No Currently Using BIPAP: No Cardiac: No Neurological: Yes Headaches /Migraines Last Menstrual Period: Apr 09, 2022 Female Reproductive Disorders: Menstrual Problems, Endometriosis, Ovarian Cyst Sexually Transmitted Disease: Yes (HX OF CHLAMYDIA) HIV/AIDS: No Genitourinary: Yes (POST SURGERY IN 2019 "SLEEPY BLADDER") Bladder Infection Gastrointestinal: Yes (H.PYLORI;S/P CHOLECYSTECTOMY AND APPENDECTOMY) Gastroesophageal Reflux, C-Diff, Gall Bladder Disease Musculoskeletal: No Endocrine: No HEENT: Yes (CHRONIC SINUS AND EAR INFECTIONS A YOUNG CHILD. ) Chronic Ear Infection, Tonsilitis Cancer: No Psychosocial: Yes Anxiety, Depression Integumentary: No Blood Disorders: No Adverse Reaction/Blood Tranf: No Physical Exam Vital Signs Vital Signs - First Documented 06/23/22 18:08 Temp 36.8 Pulse 83 Resp 18 B/P (MAP) 122/78 (93) Pulse Ox 98 O2 Delivery Room Air Capillary Refill : Less Than 3 Seconds Height, Weight, BMI Height: '" Weight: lbs. oz. kg; 28.00 BMI Method: General Appearance: Anxious (Acute ischemia because ST elevation in aVR ST depression and T wave negative.) Cardiovascular: Regular Rate, Rhythm, No Edema, No Gallop, No JVD, No Murmur Gastrointestinal: Soft Extremity: Normal Capillary Refill Neurologic/Psychiatric: Alert, Oriented x3 Skin: Warm/Dry Lymphatic: No Adenopathy Progress/Results/Core Measures Results/Orders Lab Results Laboratory Tests Test 06/23/22 18:14 Range/Units White Blood Count 6.8 4.3-11.0 10^3/uL Red Blood Count 4.80 3.80-5.11 10^6/uL Hemoglobin 13.7 11.5-16.0 g/dL Hematocrit 40 35-52 % Mean Corpuscular Volume 84 80-99 fL Mean Corpuscular Hemoglobin 29 25-34 pg Mean Corpuscular Hemoglobin Concent 34 32-36 g/dL Red Cell Distribution Width 12.0 10.0-14.5 % Platelet Count 269 130-400 10^3/uL Mean Platelet Volume 9.7 9.0-12.2 fL Immature Granulocyte % (Auto) 0 % Neutrophils (%) (Auto) 55 42-75 % Lymphocytes (%) (Auto) 32 12-44 % Monocytes (%) (Auto) 7 0-12 % Eosinophils (%) (Auto) 5 0-10 % Basophils (%) (Auto) 1 0-10 % Neutrophils # (Auto) 3.8 1.8-7.8 10^3/uL Lymphocytes # (Auto) 2.1 1.0-4.0 10^3/uL Monocytes # (Auto) 0.5 0.0-1.0 10^3/uL Eosinophils # (Auto) 0.4 H 0.0-0.3 10^3/uL Basophils # (Auto) 0.0 0.0-0.1 10^3/uL Immature Granulocyte # (Auto) 0.0 0.0-0.1 10^3/uL Prothrombin Time 13.1 12.2-14.7 SEC INR Comment 1.0 0.8-1.4 Activated Partial Thromboplast Time 32 24-35 SEC D-Dimer < 0.27 0.00-0.49 UG/ML Sodium Level 138 135-145 MMOL/L Potassium Level 3.4 L 3.6-5.0 MMOL/L Chloride Level 106 98-107 MMOL/L Carbon Dioxide Level 22 21-32 MMOL/L Anion Gap 10 5-14 MMOL/L Blood Urea Nitrogen 9 7-18 MG/DL Creatinine 0.69 0.60-1.30 MG/DL Estimat Glomerular Filtration Rate 127 BUN/Creatinine Ratio 13 Glucose Level 101 70-105 MG/DL Calcium Level 9.2 8.5-10.1 MG/DL Corrected Calcium 9.3 8.5-10.1 MG/DL Magnesium Level 1.6 1.6-2.4 MG/DL Total Bilirubin 0.3 0.1-1.0 MG/DL Aspartate Amino Transf (AST/SGOT) 15 5-34 U/L Alanine Aminotransferase (ALT/SGPT) 15 0-55 U/L Alkaline Phosphatase 63 40-136 U/L Myoglobin 15.5 10.0-92.0 NG/ML Troponin I < 0.028 <0.028 NG/ML Total Protein 7.2 6.4-8.2 GM/DL Albumin 3.9 3.2-4.5 GM/DL Thyroid Stimulating Hormone (TSH) 1.93 0.35-4.94 UIU/ML Free Thyroxine 0.96 0.70-1.48 NG/DL Serum Test, Qualitative NEGATIVE NEGATIVE My Orders Orders - PIO VELASCO APRN Lorazepam Injection (Ativan Injection) (06/23/22 18:30) Antacid Suspension (Mylanta Suspension (06/23/22 18:30) Lidocaine 2% Viscous 15 Ml (Xylocaine Vi (06/23/22 18:30) Cbc With Automated Diff (06/23/22 18:) Magnesium (06/23/22 18:22) Chest 1 View, Ap/Pa Only (06/23/22 18:) Ekg Tracing (06/23/22 18:) Comprehensive Metabolic Panel (06/23/22 18:) Myoglobin Serum (06/23/22 18:) Protime With Inr (06/23/22 18:) Partial Thromboplastin Time (06/23/22 18:) O2 (06/23/22 18:) Monitor-Rhythm Ecg Trace Only (06/23/22 18:) Lipid Panel (06/24/22 06:00) Ed Iv/Invasive Line Start (06/23/22 18:) Fibrin Degradation Products (06/23/22 18:) Troponin I [place] (06/23/22 18:22) Thyroid Stimulating Hormone (06/23/22 18:22) Free T4 (Free Thyroxine) (06/23/22 18:22) Hcg,Qualitative Serum (06/23/22 18:22) Orthostatic Vital Signs (Adult (06/23/22 18:42) Medications Given in ED Current Medications Medications Dose Ordered Sig/Radhames Route Start Time Stop Time Status Last Admin Dose Admin Al Hydrox/Mg Hydrox/Simethicone 30 ml ONCE ONCE PO 06/23/22 18:30 06/23/22 18:31 DC 06/23/22 18:28 30 ML Lidocaine HCl 15 ml ONCE ONCE PO 06/23/22 18:30 06/23/22 18:31 DC 06/23/22 18:29 15 ML Lorazepam 0.5 mg ONCE ONCE IVP 06/23/22 18:30 06/23/22 18:31 DC 06/23/22 18:29 0.5 MG Vital Signs/I&O 06/23/22 06/23/22 18:08 19:15 Temp 36.8 Pulse 83 89 87 120 Resp 18 B/P (MAP) 122/78 (93) 124/77 (93) 129/82 (98) 120/82 (95) Pulse Ox 98 O2 Delivery Room Air Blood Pressure Mean: 93 Departure Communication (Admissions) 1933-EKG shows normal sinus rhythm at [address] segment changes. Still reports that she has some central chest achiness. Blood pressure fine, no tachycardia. Patient is calm cooperative and pleasant. CBC shows no anemia no leukocytosis. CMP shows a very minimal hypokalemia not significant enough to cause any arrhythmias. Other electrolytes normal renal function normal negative thyroid normal. Chest x-ray clear. Patient's mother is very upset that we have not come up with a diagnosis. She informs me that she had to do CPR once so she knows what she is doing. She also had to keep rubbing the patient's chest to keep her breathing. During this episode of near unresponsiveness at home patient reports that she was able to open her eyes and see everything going on around her but she could not hear anything that was going on. EMS reported that she did not respond verbally to them but had stable vital signs upon their arrival and throughout the course of their care with her. Patient is already set up to be evaluated by cardiology on July 09. She has already had a Holter monitor and states that she did have 1 of these episodes wh ile wearing the Holter monitor. We will discharge to home and advised to return for any return for any recurrent symptoms Impression Primary Impression: Chest pain Additional Impression: Palpitations Disposition: HOME, SELF-CARE Condition: Stable Departure-Patient Inst. Decision time for Depature: 19:31 Referrals: AARON BUSTAMANTE DO (PCP/Family) Primary Care Physician Patient Instructions: Chest Pain, Adult ED Add. Discharge Instructions: 1. Keep your appoint with cardiology. Your labs are stable and show no indication of any immediate cause for concern. It is still appropriate to follow-up with the outpatient specialists. All discharge instructions reviewed with patient and/or family. Voiced understanding. PIO VELASCO APRN Jun 23, 2022 18:30
[2022-06-23 18:36] LABS: PROTHROMBIN TIME PATIENT 13.1 SEC (12.2-14.7)
[2022-06-23 18:37] LABS: ALBUMIN 3.9 GM/DL (3.2-4.5); POTASSIUM 3.4 MMOL/L (3.6-5.0)
[2022-06-23 18:39] LABS: CALCIUM 9.2 MG/DL (8.5-10.1)
[2022-06-23 18:40] LABS: TOTAL PROTEIN 7.2 GM/DL (6.4-8.2)
--- NOTE | 2022-06-23 18:40 | Diagnostic Imaging Report ---
CHEST 1 VIEW, AP/PA ONLY INDICATION: Chest pain. COMPARISON: Chest radiograph on 06/10/2022. FINDINGS: Lungs: Normal lung volume. No focal consolidation. Stable pulmonary vasculature. Pleura: No pleural effusion or pneumothorax. Heart and Mediastinum: Cardiomediastinal silhouette and great vessels of the thorax are stable. Osseous Structures and Soft Tissues: No acute osseous abnormality. Normal soft tissues. IMPRESSION: No acute cardiopulmonary process. Dictated by: Dictated on workstation # [id number]
[2022-06-23 18:42] LABS: BILIRUBIN,TOTAL 0.3 MG/DL (0.1-1.0)
[2022-06-23 18:43] LABS: CREATININE SERUM 0.69 MG/DL (0.60-1.30)
[2022-06-23 18:46] LABS: MAGNESIUM 1.6 MG/DL (1.6-2.4)
[2022-06-23 19:15] VITALS: BP_SYST 120; BP_SYST 124; BP_SYST 129; BP_DIAS 77; BP_DIAS 82
[2022-06-23 19:22] LABS: FREE T4 (FREE THYROXINE) 0.96 NG/DL (0.70-1.48)
[2022-06-23 19:40] VITALS: BP 125/93
== END 2022-06-23 19:40 | disposition home or self-care (01) ==
LOC: EDUNIT# 18:06 → ER 18:07
DX: R07.2 Precordial pain (principal); R00.2 Palpitations; E87.6 Hypokalemia
CPT/HCPCS: 36415; 71045; 80053; 83735; 83874; 84439; 84443; 84484; 84703; 85025; 85379; 85610; 85730; 93005; 93041

== ENCOUNTER 2022-09-04 17:40 | Emergency (ER) | payer OTHER ==
[~2022-09-04] VITALS: Ht 162.5 cm; Wt 74.1 kg
[2022-09-04 17:46] VITALS: BP 112/82
[2022-09-04 18:11] LABS: BILIRUBIN,URINE NEGATIVE (NEGATIVE); CLARITY,URINE CLEAR; COLOR,URINE YELLOW; GLUCOSE, URINE (UA) NEGATIVE (NEGATIVE); KETONES,URINE 1+ (NEGATIVE); LEUKOCYTE ESTERASE ,URINE NEGATIVE (NEGATIVE); NITRITE,URINE NEGATIVE (NEGATIVE); PROTEIN,URINE NEGATIVE (NEGATIVE)
[2022-09-04] MEDS ORDERED: NS IV 1000 ML 1,000 ML IV STA (18:11)
[2022-09-04] MEDS ORDERED: KETOROLAC 30 MG/ML VIAL IVP ONE (18:15)
[2022-09-04] MEDS ORDERED: ONDANSETRON 4 MG/2 ML (SDV) Z0FRAN IVP ONE (18:15)
--- NOTE | 2022-09-04 18:15 | ED Abdominal Pain ---
General Chief Complaint: Abdominal/GI Problems Stated Complaint: VOMITING ABDOMINAL PAIN Nursing Triage Note: Patient c/o N/V/D with Abd. pain that started 4 days ago. Patient states she is having Abd. cramping. patient denies any blood in her stool or emesis. Patient states she has taken Zofran at home with no change in her symptoms. Patient states she was seen in another ER 2 days ago with having lab work done. Patient states her labs were normal at that time. Patient states she has vomited x 6 and has had 2 diarrhea stools in last 24 hrs. Source of Information: Patient Exam Limitations: No Limitations (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) History of Present Illness Date Seen by Provider: Sep 04, 2022 Time Seen by Provider: 18:12 Initial Comments Patient is a 22-year-old female who presents to the ED with abdominal cramping, vomiting and diarrhea. Symptoms started this past Thursday. She reports at least 5 episodes of vomiting daily that is liquidy without any hematemesis or bile. She has had intermittent cramping mid upper abdomen over the past 4 days. Cram ping worse today. She states she has had diarrhea daily at least 6 episodes without any blood. She reports mucousy stool. History of IBS currently on amitriptyline. She states she was seen at [facility] a few days ago had lab work and received IV fluids and nausea medication with some improvement. Since the symptoms were getting worse she tried to follow-up with her primary care kristopher mesa but was not able to get in. History of endometriosis. She does have IUD. She is not concern for sexual transmitted infection or . Denies any vaginal discharge or vaginal bleeding currently. She states she is having difficulty eating. She feels dehydrated. Low-grade temperature at home. She denies cough, chest pain, sore throat, runny nose, headache, dizziness. History of appendectomy and cholecystic (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) Allergies and Home Medications Allergies Coded Allergies: azithromycin (Verified Allergy, Unknown, RASH, 12/19/21) Patient Home Medication List Home Medication List Reviewed: Yes (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) Buspirone HCl (Buspirone HCl) 10 Mg Tablet, 10 MG PO UD, (Reported) Entered as Reported by: TAMARA JIMENEZ on 12/19/21 1055 Cefdinir (Cefdinir) 300 Mg Capsule, 300 MG PO BID Prescribed by: TRE HALEY on 02/17/222052 Citalopram Hydrobromide (Celexa) 40 Mg Tablet, 40 MG PO DAILY, (Reported) Entered as Reported by: RADHA PEREZ on 04/16/21 1142 Dicyclomine HCl (Dicyclomine HCl) 20 Mg Tablet, 20 MG PO QID Prescribed by: ROCHELLE MCALLISTER on 09/04/221943 Last Action: New Order Docusate Sodium (Colace) 100 Mg Capsule, 100 MG PO BID Prescribed by: RAINA BENNETT on 12/26/21 115 Hydrocodone/Acetaminophen (Hydrocodone-Acetamin 5-325 mg) 5 Mg-325 Mg Tablet, 1 EACH PO Q4H PRN for PAIN-MODERATE (5-7) Prescribed by: RAINA BENNETT on 12/26/21 115 Lactobacillus Acidophilus (Acidophilus Lactobacillus) 1 Billion Unit/Gram Powder, 1 GM MC QID Prescribed by: TRE HALEY on 02/17/222052 Oxybutynin Chloride (Oxybutynin Chloride ER) 10 Mg Tab.er.24, (Reported) Entered as Reported by: GISSELLE JOYCE on 04/30/20 1033 Pantoprazole Sodium (Pantoprazole Sodium) 40 Mg Tablet.dr, 40 MG PO DAILY, (Reported) Entered as Reported by: GATITO PEARSON on 11/27/21 0842 Promethazine HCl (Promethazine Suppository) 25 Mg Supp.rect, 25 MG RC Q6H Prescribed by: ROCHELLE MCALLISTER on 09/04/221947 Review of Systems Review of Systems Constitutional: No chills, No diaphoresis, No malaise, No weakness EENTM: No Eye Pain, No Ear Pain, No Mouth Pain, No Mouth Swelling Respiratory: Denies Cough, Denies Shortness of Air Cardiovascular: Denies Chest Pain, Denies Edema Gastrointestinal: Abdominal Pain, Diarrhea, Nausea, Vomiting Genitourinary: Denies Burning, Denies Discharge Musculoskeletal: No back pain, No joint pain Skin: No change in color, No change in hair/nails (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) All Other Systems Reviewed Negative Unless Noted: Yes (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) Past Ozxyzol-Oeqoop-Prgxcu Hx Patient Social History Tobacco Use?: No Use of E-Cig and/or Vaping dev: No Substance use?: No Alcohol Use?: No Pt feels they are or have been: No (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) Immunizations Up To Date Influenza Vaccine Up-to-Date: No; Not Current First/Initial COVID19 Vaccinat: November 2020 Second COVID19 Vaccination Malik: December 2020 Third COVID19 Vaccination Date: November 2020 (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) Seasonal Allergies Seasonal Allergies: Yes (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) Past Medical History Surgery/Hospitalization HX: [facility], [facility], Hx. of overactive bladder, Endom. Surgeries: Yes (EYE LID; ENDOMETRIOSIS & LYSIS OF ADHESIONS X2;COLONOSCOPY;CHOLECYSTECTOMY) Abdominal, Appendectomy, Gallbladder Respiratory: Yes (RAD) Asthma Currently Using CPAP: No Currently Using BIPAP: No Cardiac: No Neurological: Yes Headaches /Migraines Female Reproductive Disorders: Menstrual Problems, Endometriosis, Ovarian Cyst Sexually Transmitted Disease: Yes (HX OF CHLAMYDIA) HIV/AIDS: No Genitourinary: Yes (POST SURGERY IN 2019 "SLEEPY BLADDER") Bladder Infection Gastrointestinal: Yes (H.PYLORI;S/P CHOLECYSTECTOMY AND APPENDECTOMY) Gastroesophageal Reflux, C-Diff, Gall Bladder Disease Musculoskeletal: No Endocrine: No HEENT: Yes (CHRONIC SINUS AND EAR INFECTIONS A YOUNG CHILD. ) Chronic Ear Infection, Tonsilitis Cancer: No Psychosocial: Yes Anxiety, Depression Integumentary: No Blood Disorders: No Adverse Reaction/Blood Tranf: No (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) Physical Exam Vital Signs Vital Signs - First Documented 09/04/22 17:46 Temp 37.0 Pulse 94 Resp 12 B/P (MAP) 112/82 (92) Pulse Ox 97 O2 Delivery Room Air (TRE HALEY DO) Vital Signs Capillary Refill : (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) Height/Weight/BMI Height: '" Weight: lbs. oz. kg; 28.00 BMI Method: General Appearance: WD/WN, no apparent distress HEENT: PERRL/EOMI, normal ENT inspection, TMs normal, pharynx normal Neck: non-tender, full range of motion, supple Respiratory: chest non-tender, lungs clear, normal breath sounds, no respiratory distress, no accessory muscle use Cardiovascular: regular rate, rhythm, no edema, no gallop, no JVD Gastrointestinal: normal bowel sounds, soft, no organomegaly, tenderness (Generalized abdominal tenderness. Normal bowel sounds throughout. No rebound or guarding) Extremities: normal range of motion, non-tender, normal inspection, no pedal edema Back: normal inspection, no CVA tenderness, no vertebral tenderness Pelvic: normal external exam Neurologic/Psychiatric: general assignment reporter II-XII nml as tested, no motor/sensory deficits, alert, normal mood/affect, oriented x 3 Skin: normal color, warm/dry (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) Progress/Results/Core Measures Results/Orders Lab Results Laboratory Tests Test 09/04/22 18:02 09/04/22 18:18 Range/Units Urine Color YELLOW Urine Clarity CLEAR Urine pH 6.0 5-9 Urine Specific [place] <=1.005 1.016-1.022 Urine Protein NEGATIVE NEGATIVE Urine Glucose (UA) NEGATIVE NEGATIVE Urine Ketones 1+ H NEGATIVE Urine Nitrite NEGATIVE NEGATIVE Urine Bilirubin NEGATIVE NEGATIVE Urine Urobilinogen 0.2 < = 1.0 MG/DL Urine Leukocyte Esterase NEGATIVE NEGATIVE Urine RBC (Auto) TRACE-L H NEGATIVE Urine RBC NONE /HPF Urine WBC RARE /HPF Urine Squamous Epithelial Cells 2-5 /HPF Urine Crystals NONE /LPF Urine Bacteria TRACE /HPF Urine Casts NONE /LPF Urine Mucus NEGATIVE /LPF Urine Culture Indicated NO Urine Test NEGATIVE NEGATIVE White Blood Count 6.0 4.3-11.0 10^3/uL Red Blood Count 4.78 3.80-5.11 10^6/uL Hemoglobin 13.8 11.5-16.0 g/dL Hematocrit 40 35-52 % Mean Corpuscular Volume 84 80-99 fL Mean Corpuscular Hemoglobin 29 25-34 pg Mean Corpuscular Hemoglobin Concent 34 32-36 g/dL Red Cell Distribution Width 12.1 10.0-14.5 % Platelet Count 226 130-400 10^3/uL Mean Platelet Volume 9.8 9.0-12.2 fL Immature Granulocyte % (Auto) 0 % Neutrophils (%) (Auto) 71 42-75 % Lymphocytes (%) (Auto) 20 12-44 % Monocytes (%) (Auto) 7 0-12 % Eosinophils (%) (Auto) 1 0-10 % Basophils (%) (Auto) 0 0-10 % Neutrophils # (Auto) 4.3 1.8-7.8 10^3/uL Lymphocytes # (Auto) 1.2 1.0-4.0 10^3/uL Monocytes # (Auto) 0.4 0.0-1.0 10^3/uL Eosinophils # (Auto) 0.1 0.0-0.3 10^3/uL Basophils # (Auto) 0.0 0.0-0.1 10^3/uL Immature Granulocyte # (Auto) 0.0 0.0-0.1 10^3/uL Sodium Level 138 135-145 MMOL/L Potassium Level 3.5 L 3.6-5.0 MMOL/L Chloride Level 104 98-107 MMOL/L Carbon Dioxide Level 22 21-32 MMOL/L Anion Gap 12 5-14 MMOL/L Blood Urea Nitrogen 7 7-18 MG/DL Creatinine 0.71 0.60-1.30 MG/DL Estimat Glomerular Filtration Rate 124 BUN/Creatinine Ratio 10 Glucose Level 125 H 70-105 MG/DL Calcium Level 9.0 8.5-10.1 MG/DL Corrected Calcium 8.9 8.5-10.1 MG/DL Total Bilirubin 0.7 0.1-1.0 MG/DL Aspartate Amino Transf (AST/SGOT) 19 5-34 U/L Alanine Aminotransferase (ALT/SGPT) 11 0-55 U/L Alkaline Phosphatase 57 40-136 U/L Total Protein 7.3 6.4-8.2 GM/DL Albumin 4.1 3.2-4.5 GM/DL Lipase 12 8-78 U/L (TERA,TRE K DO) Medications Given in ED Current Medications Medications Dose Ordered Sig/Radhames Route Start Time Stop Time Status Last Admin Dose Admin Iohexol 100 ml ONCE ONCE IV 09/04/22 19:00 09/04/22 19:01 DC 09/04/22 18:56 80 ML Ketorolac Tromethamine 30 mg ONCE ONCE IVP 09/04/22 18:15 09/04/22 18:16 DC 09/04/22 18:26 30 MG Ondansetron HCl 4 mg ONCE ONCE IVP 09/04/22 18:15 09/04/22 18:16 DC 09/04/22 18:26 4 MG Sodium Chloride 100 ml ONCE ONCE IV 09/04/22 19:00 09/04/22 19:01 DC 09/04/22 18:56 80 ML (TRE HALEY DO) Vital Signs/I&O 09/04/22 17:46 Temp 37.0 Pulse 94 Resp 12 B/P (MAP) 112/82 (92) Pulse Ox 97 O2 Delivery Room Air (TRE HALEY DO) Blood Pressure Mean: 92 Departure Communication (PCP) Patient presents ED for vomiting and diarrhea since Thursday. Denies of any bloody stools. Denies of any hematemesis or bile. Patient was seen at [facility] 2 days ago with no imaging but had unremarkable lab work. Continue abdominal pain worse today. History of cholecystectomy and appendectomy. Differential chacho gnosis of gastritis, colitis, gastroenteritis. History of endometriosis. Does have IUD. Denies any vaginal bleeding or vaginal discharge. Urinalysis was ordered secondary to complaint which was negative for and negative for infection. Did note some hematuria. CBC, CMP and lipase was grossly unremarkable. Potassium 3.5. Discussed electrolytes such as Pedialyte. due to the continuous worsening abdominal pain CT abdomen pelvis was ordered which was unremarkable. Patient Was given Toradol and a liter of fluid with Zofran with improvement of her symptoms. Tolerating p.o. fluids. Discussed with mother and patient of the results. She is getting in 1 week. Discussed that this may be related to anxiety however she potentially may have a viral gastroenteritis. This appears to be more viral. No recent antibiotic use or traveling suggesting bacterial. Discussed conservative treatment. She does have Zofran at home. Will discharge with Phenergan suppositories as she was requesting because of the vomiting. May be difficult with the diarrhea. Bentyl for the abdominal cramping. If any worsening symptoms, bloody stools, fever or worsening abdominal pain she will need to return back to ED. Discussed potential stool culture. Patient does not appear toxic or septic. (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) Impression Primary Impression: Diarrhea Additional Impression: Nausea and vomiting Disposition: HOME, SELF-CARE Condition: Stable Departure-Patient Inst. Decision time for Depature: 19:40 (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) Referrals: AARON BUSTAMANTE DO (PCP/Family) Primary Care Physician Patient Instructions: Nausea and Vomiting, Adult Add. Discharge Instructions: If diarrhea continues throughout the weekend may consider getting a stool culture. If fever, bloody stools, worsening abdominal vein to return back to ED. Anti-inflammatories for abdominal pain or bentyl. All discharge instructions reviewed with patient and/or family. Voiced understanding. Scripts Promethazine HCl (Promethazine Suppository) 25 Mg Supp.rect 25 MG RC Q6H, #8 SUPP.RECT Prov: 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 09/04/22 Dicyclomine HCl (Dicyclomine HCl) 20 Mg Tablet 20 MG PO QID for Abdominal Pain, #20 TAB Prov: 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 09/04/22 ATTENDING PHYSICIAN NOTE: I WAS PHYSICALLY PRESENT ER PHYSICIAN, BUT I WAS NOT INVOLVED IN ANY DECISION MAKING OR ANY CARE OF THIS PATIENT, AND I AM NOT COLLABORATING PHYSICIAN. (TRE HALEY DO) 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 Sep 04, 2022 18:15 TRE HALEY DO Sep 05, 2022 06:11
[2022-09-04 18:37] LABS: BACTERIA,URINE TRACE /HPF; WBC,URINE RARE /HPF
[2022-09-04 18:40] LABS: BASOPHILS % (AUTO) 0 % (0-10); EOSINOPHILS # (AUTO) 0.1 10^3/uL (0.0-0.3); EOSINOPHILS % (AUTO) 1 % (0-10); HEMATOCRIT 40 % (35-52); HEMOGLOBIN 13.8 g/dL (11.5-16.0); LYMPHOCYTES # (AUTO) 1.2 10^3/uL (1.0-4.0); LYMPHOCYTES % (AUTO) 20 % (12-44); MEAN CORPUSCULAR HEMOGLOBIN 29 pg (25-34); MEAN CORPUSCULAR HGB CONC 34 g/dL (32-36); MEAN CORPUSCULAR VOLUME 84 fL (80-99); MEAN PLATELET VOLUME 9.8 fL (9.0-12.2); MONOCYTES # (AUTO) 0.4 10^3/uL (0.0-1.0); MONOCYTES % (AUTO) 7 % (0-12); NEUTROPHILS # (AUTO) 4.3 10^3/uL (1.8-7.8); NEUTROPHILS % (AUTO) 71 % (42-75); PLATELET COUNT 226 10^3/uL (130-400)
[2022-09-04 18:52] LABS: ALBUMIN 4.1 GM/DL (3.2-4.5)
[2022-09-04 18:53] LABS: POTASSIUM 3.5 MMOL/L (3.6-5.0)
[2022-09-04 18:55] LABS: TOTAL PROTEIN 7.3 GM/DL (6.4-8.2)
[2022-09-04 18:57] LABS: BILIRUBIN,TOTAL 0.7 MG/DL (0.1-1.0)
[2022-09-04 18:59] LABS: CREATININE SERUM 0.71 MG/DL (0.60-1.30)
[2022-09-04] MEDS ORDERED: IOHEXOL 350 MG/ML 100 ML (OMNIPAQUE 350) VIAL IV ONE (19:00)
[2022-09-04] MEDS ORDERED: NS 100 ML (IVPB) BAG IV ONE (19:00)
--- NOTE | 2022-09-04 19:09 | Diagnostic Imaging Report ---
PROCEDURE: CT abdomen and pelvis with contrast. TECHNIQUE: Multiple contiguous axial images were obtained through the abdomen and pelvis after administration of intravenous contrast. Auto Exposure Controls were utilized during the CT exam to meet ALARA standards for radiation dose reduction. All CT scans use one or more of the following dose optimizing techniques: automated exposure control, MA and/or KvP adjustment based on patient size and exam type or iterative reconstruction. INDICATION: Upper abdominal pain. COMPARISON: 02/17/2022. FINDINGS: There is no focal hepatic, pancreatic, adrenal gland, renal or splenic abnormality. Gallbladder is surgically absent without evidence of biliary ductal dilatation. There is no ascites. There is no evidence of organized fluid collection or focal inflammation in the abdomen or pelvis. Surgical sutures seen along the cecum indicating previous appendectomy. No pathologic adenopathy is identified. Intrauterine device is present in the expected location. Unopacified urinary bladder is unremarkable. IMPRESSION: No CT evidence of acute abnormality within the abdomen or pelvis. Dictated by: Dictated on workstation # [id number]
[2022-09-04] MEDS ORDERED: PROM25TA14 PO (19:42)
[2022-09-04] MEDS ORDERED: DICY20TA PO (19:44)
[2022-09-04] MEDS ORDERED: PROM25SU44 RC (19:48)
== END 2022-09-04 20:02 | disposition home or self-care (01) ==
LOC: EDUNIT# 17:40 → ER 17:42
DX: R19.7 Diarrhea, unspecified (principal); R11.2 Nausea with vomiting, unspecified; R31.9 Hematuria, unspecified; R10.84 Generalized abdominal pain; K58.9 Irritable bowel syndrome, unspecified; Z90.49 Acquired absence of other specified parts of digestive tract; Z79.899 Other long term (current) drug therapy
CPT/HCPCS: 36415; 74177; 80053; 81000; 83690; 84703; 85025